=== PATIENT | male | born 1990 | race Caucasian/White ===

== ENCOUNTER → 2020-06-30 10:08 | Outpatient (BNVA) | payer OTHER, SELFPAY | PROVIDERS: PCP Internal Medicine; Visit Provider Urology ==

== ENCOUNTER → 2020-12-31 15:03 | Outpatient (BNVA) | payer OTHER, SELFPAY | PROVIDERS: PCP Internal Medicine; Visit Provider Urology ==

== ENCOUNTER → 2021-07-05 14:35 | Outpatient (BNVA) | payer OTHER, SELFPAY | PROVIDERS: PCP Internal Medicine; Visit Provider Urology | DX: N41.1 Chronic prostatitis (principal); N20.0 Calculus of kidney; R10.31 Right lower quadrant pain; R10.32 Left lower quadrant pain | CPT/HCPCS: 99212 ==

== ENCOUNTER 2022-11-09 08:42 | Outpatient (AMB) | payer OTHER, SELFPAY ==
--- NOTE | 2022-11-09 08:45 | A.OFFVIS_ITS ---
Intake Intake Visit Reasons: 1 year follow up Intake Note: Patient is present for follow up chronic prostatitis Urology Medications: tamsulosin Blood Thinner: none Licensed Physical Therapy Assistant Required: No Accompanied by: Self / Same As Patient Allergies No Known Allergies Allergy (Verified 11/09/22 08:51) HPI HPI Comments History of Present Illness Details Calvin is a pleasant male. He is a patient of Dr. Haney. 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 Review of Systems Const Denies chills and Denies fever(s) Card Reports no additional complaints and Denies syncope Resp Denies cough GI Denies abdominal pain and Denies heartburn Reports as per HPI and Denies change in libido Neuro Denies syncope Psych Denies change in libido Endo Denies change in libido Physical Exam Const General: cooperative, healthy appearing, comfortable and no acute distress Orientation/consciousness: patient oriented x3 HEENT Face and sinus: Yes normal facial exam Mouth: moist mucous membranes Neck Neck: Yes normal visual inspection, Yes full ROM and Yes trachea midline Chest Chest palpation & inspection: normal inspection of the chest Resp Effort & Inspection: normal respiratory effort, able to speak in complete sentences and no respiratory distress GI Inspection: Yes normal to inspection Back/Spine/Pelvis Cervical Spine: normal cervical lordosis Thoracic/Lumbar Spine: thoracic and lumbar spine normal to inspection Skin General skin exam: no rashes or lesions noted Neuro General: patient oriented x3, gait normal, tone normal and moves all extremities Extrem General: Yes normal to inspection and Yes capillary refill normal Assessment & Plan Assessment & Plan (1) Chronic prostatitis: Code(s): N41.1 - Chronic prostatitis Plan Trial tadalafil Patient Instructions: Imaging studies, laboratory and physical exam results were discussed and reviewed in detail. No major barriers to patient understanding were identified. An opportunity to ask questions regarding the treatment plan was provided. All questions were answered. The patient expressed understanding and agreement with the above treatment plan. The patient is aware they should contact our office by phone for worsening of their current condition or the appearance of new urologic symptoms. Compliance is encouraged with any medications and followup testing that is ordered. It is a privilege to participate in the urologic care of your patient. If you have any questions or concerns regarding treatment for the above conditions, or other urologic issues, please do not hesitate to contact me. The office telephone contact is [phone]. This note is constructed using voice recognition software. While every effort chand s been made to ensure accuracy gas welding machine operator errors may have been included. Yours sincerely, Dr Pradip Soto MD, [facility] - Urology Providers of Expert, Compassionate Care for the Genitourinary System Coding Level of Care Code Est Pt Level 4 (86756) Diagnoses Chronic prostatitis N41.1
== END 2022-11-09 09:20 | disposition home or self-care (01) ==
PROVIDERS: Visit Provider Urology
DX: N41.1 Chronic prostatitis (principal)
CPT/HCPCS: 99213

== ENCOUNTER → 2022-11-09 08:42 | Outpatient (BNVA) | payer OTHER, SELFPAY | PROVIDERS: Visit Provider Urology | DX: N41.1 Chronic prostatitis (principal) | CPT/HCPCS: 99212 ==

== ENCOUNTER 2023-01-25 09:12 | Outpatient (AMB) | payer OTHER, SELFPAY ==
--- NOTE | 2023-01-25 09:13 | MHC.PC.OV ---
Vital Signs 01/25/23 09:16 Height 6 ft Weight 180 lb 2 oz BMI 24.4 BP 116/74 Blood Pressure Location Rt brachial Position Sitting Respiration 12 Pulse 60 Pulse Source Pulse Oximeter Temp 97.4 F Temp Source Temporal Artery Scan Pulse Oximetry (%) 99 Oxygen Delivery Method Room Air Intake Visit Reasons: New patient-requesting physical Intake Note: Patient states that he has been having eye strain in right eye. Patient states that when he looks up and left and down to the right it hurts his eye socket and he can also feel it in back of his head as well. Patient states that it just started last sunday. Patient states that he has shoulder and hip issues due to baseball. Patient states that his hip has been hurting for past 5 years and would like a referral for someone to check his hip and see what the damage is. Therapeutic Consultant Required: No Accompanied by: Self / Same As Patient Allergies No Known Allergies Allergy (Verified 01/25/23 09:41) Medication List - Last Reconciled 01/25/23 by Dre Macias CNP meloxicam 15 mg PO DAILY 30 days Tobacco use date assessed: 01/25/23 Dental Screening Dental Screen Date: 01/25/23 Did you have a dental visit in the last 12 months?: Yes Did you have a dental problem in the last 6 months where you did not have access to dental care?: No Was dental information given to patient?: Patient has dentist HPI HPI Comments History of Present Illness Details 32-year-old male presents to establish care He notes that he was last evaluated by his former PCP, [facility], a year ago. He does not recall the last time he had routine blood work done He has PMH significant for chronic prostatitis. He is followed by Dr. Soto, urologist. He his currently on meloxicam. He reports straining of the right eye for the past 1 week. He notes associated constant pain with up and down right eye movements. He denies injury or trauma. He also reports chronic, persistent right hip pain which he attributes to playing baseball. He states that he has been experiencing hip pain for the past 5 years. He notes that he plays baseball every Sunday. He states that he has never had imaging of the hip. 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 1. Little interest or pleasure in doing things: not at all 2. Feeling down, depressed, or hopeless: not at all 3. Trouble falling or staying asleep, or sleeping too much: more than half the days (staying asleep) 4. Feeling tired or having little energy: several days 5. Poor appetite or overeating: not at all 6. Feeling bad about yourself - or that you are a failure or have let yourself or your family down: not at all 7. Trouble concentrating on things, such as reading the newspaper or watching television: not at all 8. Moving or speaking so slowly that other people could have noticed. Or the opposite - being so fidgety or restless that you have been moving around a lot more than usual: not at all 9. Thoughts that you would be better off or of hurting yourself in some way: not at all Total score: 3 Depression Screening Interpretation: Negative Depression Screening Done: Yes Source: Developed by Drs. Tod Berman, Keysha Yoder, Cj Miller and colleagues, with an educational blake from [employer]. Thrive Questionnaire Date Thrive assessed: 01/25/23 I am a: Patient What is your living situation today?: I have a steady place to live Within the past 12 months, did the food you bought not last and you didn't have the money to get more?: Never true Within the past 12 months, did you worry whether your food would run out before you got money to buy more?: Never true Do you have trouble paying for medicines?: No Do you have trouble getting transportation to medical appointments?: No Do you have trouble paying your heating and electricity bill?: No Do you have trouble taking care of your child, family member or friend?: No Do you have trouble with day-to-day activities such as bathing, preparing meals, shopping, managing finances, etc.?: No Are you currently unemployed and looking for a job?: No Are you interested in more education?: Yes Please select the resources that you would like help with: Education Currently or been in a relationship where the following occur: no concerns reported AUDIT C Alcohol Use Questionnaire (AUDIT-C) 1. How often do you have a drink containing alcohol?: Monthly or less 2. How many drinks containing alcohol do you have on a typical day when you are drinking?: 1 or 2 3. How often do you have six or more drinks on one occasion?: Never Total Score: 1 SITA-7 AMB Questionnaire SITA-7 Date SITA - 7 assessed: 01/25/23 Feeling nervous, anxious, or on edge: 0 = Not at all Not being able to stop or control worryin = Several days Worrying too much about different things: 1 = Several days Trouble relaxin = Several days Being so restless that it is hard to sit still: 0 = Not at all Becoming easily annoyed or irritable: 1 = Several days Feeling afraid as if something awful might happen: 0 = Not at all Total SITA-7 score (0-4 normal; 5-9 mild; 10-14 moderate; 15-21 severe): 4 Source: Developed by Drs. Tod Berman, Keysha Yoder, Cj Miller and colleagues, with an educational blake from [employer]. Review of Systems Const Details: Const Denies chills, Denies fatigue, Denies fever(s), Denies headache(s) and Denies weakness ENT Denies dizziness and Denies headache(s) Card Denies chest pain, Denies lightheadedness, Denies dyspnea and Denies other (Palpitations) Resp Denies cough, Denies dyspnea, Denies wheezing and Denies other ( shortness of breath) GI Denies abdominal pain, Denies melena, Denies hematochezia, Denies change in bowel habits, Denies dyspepsia and Denies nausea Denies hematuria and Denies dysuria Musc Denies abnormal gait, Denies myalgias, Denies arthralgias, Denies numbness and Denies tingling Skin/Breast Denies rash, Denies unusual bruising and Denies wounds Neuro Denies abnormal gait, Denies dizziness, Denies headache(s), Denies memory loss, Denies numbness, Denies Sensory deficit (Neuro), Denies tingling and Denies weakness Psych Denies anxiety, Denies depression, Denies memory loss Endo Denies cold intolerance, Denies fatigue, Denies heat intolerance, Denies polydipsia and Denies polyuria Aller/Immun Denies wheezing Physical exam (Primary Care) Vital Signs: Last Vital Signs Temp 97.4 F 01/25/23 09:16 Pulse 60 01/25/23 09:16 Resp 12 01/25/23 09:16 BP 116/74 01/25/23 09:16 Pulse Ox 99 01/25/23 09:16 Oxygen Delivery Method Room Air 01/25/23 09:16 BMI result Body Mass Index 24.4 Tobacco/Smoking Status: Tobacco use Status Tobacco use date assessed 01/25/23 01/25/23 09:29 Patient Tobacco Use Status Never used Tobacco 01/25/23 09:29 e-Cigarette/Vaping Use Never Used 01/25/23 09:29 PHQ-9: PHQ-9 Score PHQ-9: Total score 3 01/25/23 09:45 Depression Screening Interpretation: Negative Thrive Assessment: Date of Thrive Assessment Date Thrive assessed 01/25/23 01/25/23 09:29 Currently or been in a relationship where the following occur: no concerns reported Const Other: General: no acute distress and well developed Nutritional Appearance: well nourished Orientation/consciousness: patient oriented x3 HENMT Head is normocephalic Impacted cerumen to bilateral ear canal occluding the TMs Nasal turbinates and oropharynx are pink and moist Sinuses are nontender with palpation No auricular or cervical lymphadenopathy Eyes General: appearance normal, both eyes and all related structures Pupils: Equal, round and reactive pupils present EOM: EOMs intact bilaterally Resp Effort & Inspection: normal respiratory effort Auscultation: clear to auscultation bilaterally Cardio Rate: regular rate Rhythm: regular rhythm Heart sounds: S1 normal heart sound present, S2 normal heart sound present, no gallops, no murmurs and no rubs GI Palpation (GI): No Abdominal aortic bruit present, Soft to palpation, nontender, No hepatosplenomegaly present and No Rebound tenderness present Auscultation: normal bowel sounds General: Yes no CVA tenderness Back/Spine/Pelvis Back: no CVA tenderness Cervical Spine: cervical ROM normal and No Cervical spine tenderness Thoracic/Lumbar Spine: thoraco-lumbar ROM normal, No pain with thoraco-lumbar ROM, No thoracic spinal tenderness and No lumbar spinal tenderness Extrem General: Yes normal to inspection, No edema and No calf tenderness Negative straight leg raise bilaterally Skin General: warm and dry. Normal skin color. Normal skin turgor Lesions: no lesions Rashes: no rashes Trauma: no lacerations or abrasions Wounds: no wounds Nails: normal Neuro General: patient oriented x3, gait normal and no focal neuro deficit Cranial nerves: Yes Equal, round and reactive pupils present Cognition (Neuro): normal cognition Gait exam (Neuro): Normal gait present Sensory Exam: No Sensory deficit (Neuro) Psych Appearance: grossly normal Affect: normal affect Attitude: cooperative Thought process: Normal thought process present Assessment and Plan Assessment & Plan (1) Right eye strain: Code(s): H53.10 - Unspecified subjective visual disturbances Plan: He reports straining of the right eye for the past 1 week. He notes associated constant pain with up and down right eye movements. No injury or trauma. Normal eye exam Referred to Ophthalmology Follow-up with worsening or new symptoms Advised to get fasting blood work done and follow-up in 1 month for a complete physical exam and labs review Verbalized understanding and agreed with treatment plan. (2) Chronic right hip pain: Code(s): M25.551 - Pain in right hip; G89.29 - Other chronic pain Plan: He also reports chronic, persistent right hip pain which he attributes to playing baseball. He states that he has been experiencing hip pain for the past 5 years. He notes that he plays baseball every Sunday. He states that he has never had imaging of the hip. Likely hip strain or arthritis Negative straight leg raise Continue to take naproxen as prescribed Warm/cold compresses encouraged X-ray ordered. Will review results and make changes to his care plan if warranted. May referred to physical therapy Follow-up with worsening or new symptoms Verbalized understanding and agreed with treatment plan. (3) Impacted cerumen of both ears: Code(s): H61.23 - Impacted cerumen, bilateral Plan: Impacted cerumen of both ears occluding the TMs No ear pain or hearing impairment Advised to return for cerumen removal with pain or hearing impairment Verbalized understanding and agreed with treatment plan. (4) Laboratory tests ordered as part of a complete physical exam (CPE): Code(s): Z00.00 - Encounter for general adult medical examination without abnormal findings Plan: Fasting labs ordered as part of a complete physical exam. Advised to fast for at least 10 hours before getting labs drawn. May drink water Verbalized understanding and agreed with treatment plan. Orders: Orders Lipid Panel Today Z00.00 - Encounter for general adult medical examination without abnormal findings XR hip RT w PEL1V Today G89.29 - Other chronic pain, M25.551 - Pain in right hip Complete Blood Count Auto Diff Today Z00.00 - Encounter for general adult medical examination without abnormal findings Comprehensive [place]. Panel Fast Today Z00.00 - Encounter for general adult medical examination without abnormal findings TSH reflex Free T4 Today Z00.00 - Encounter for general adult medical examination without abnormal findings UA CC w/rflx Micro + Cult Today Z00.00 - Encounter for general adult medical examination without abnormal findings Referrals Ophthalmology Referral H53.10 - Unspecified subjective visual disturbances Coding Level of Care Code New Pt Level 3 (68668) Diagnoses Right eye strain H53.10 Chronic right hip pain M25.551; G89.29 Impacted cerumen of both ears H61.23 Laboratory tests ordered as part of a complete physical exam (CPE) Z00.00
[2023-01-25 09:16] VITALS: BP 116/74; PULSE 60; RESP 12; TEMP 36.3; O2SAT 99; BMI 24.4
== END 2023-01-25 10:08 | disposition home or self-care (01) ==
PROVIDERS: PCP Nurse Practitioner Family; Visit Provider Nurse Practitioner Family
DX: H53.10 Unspecified subjective visual disturbances (principal); M25.551 Pain in right hip; G89.29 Other chronic pain; H61.23 Impacted cerumen, bilateral; Z00.00 Encounter for general adult medical examination without abnormal findings
CPT/HCPCS: 99204

== ENCOUNTER 2023-05-08 08:33 | Outpatient (AMB) | payer OTHER, SELFPAY ==
--- NOTE | 2023-05-08 08:36 | MHC.OFFVIS ---
Intake Intake Visit Reasons: 6m follow up(Prostatitis) Intake Note: Patient is Present for Telephone Follow Up Prostatitis Urology Med: None Antibiotic Allergy: None Blood Thinner: None Allergies No Known Allergies Allergy (Verified 05/08/23 08:40) Medication List - Last Reconciled 05/08/23 by Pradip Soto MD meloxicam 15 mg PO DAILY 30 days HPI HPI Comments History of Present Illness Details Calvin is a pleasant male. He is a patient of Dr. Haney. 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 [facility] Medical History (Updated 01/25/23 @ 10:05 by Dre Macias CNP) Abscess of anal or rectal region Surgical History No pertinent past surgical history Social History Housing: House Patient Tobacco Use Status: Never used Tobacco e-Cigarette/Vaping Use: Never Used service: No Current occupational status: employed 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 Cognitive needs: No Hearing needs: No Vision needs: No Review of Systems Const All systems reviewed & are unremarkable except as noted in HPI and below Reports no additional complaints Resp Reports no additional complaints GI Reports no additional complaints Reports as per HPI Musc Reports no additional complaints Physical Exam Telemedicine evaluation Appropriate responses Regular breathing rate and rhythm HEENT Head: Yes normal to inspection Ears: hearing grossly normal bilaterally Eyes General: appearance normal, both eyes and all related structures Neck Neck: Yes normal visual inspection Chest Chest palpation & inspection: normal inspection of the chest Resp Effort & Inspection: normal respiratory effort and able to speak in complete sentences Assessment & Plan Assessment & Plan (1) Chronic prostatitis: Code(s): N41.1 - Chronic prostatitis Plan Six-month follow-up tele Medications: New tadalafil 1/2 tab daily or 1 tab every other day 10 mg PO DAILY 90 days 90 tabs 0RF N41.1 - Chronic prostatitis Patient Instructions: Imaging studies, laboratory and physical exam results were discussed and reviewed in detail. No major barriers to patient understanding were identified. An opportunity to ask questions regarding the treatment plan was provided. All questions were answered. The patient expressed understanding and agreement with the above treatment plan. The patient is aware they should contact our office by phone for worsening of their current condition or the appearance of new urologic symptoms. Compliance is encouraged with any medications and followup testing that is ordered. It is a privilege to participate in the urologic care of your patient. If you have any questions or concerns regarding treatment for the above conditions, or other urologic issues, please do not hesitate to contact me. The office telephone contact is [phone]. This note is constructed using voice recognition software. While every effort has been made to ensure accuracy health insurance adjuster errors may have been included. Yours sincerely, Dr Pradip Soto MD, [facility] - Urology Providers of Expert, Compassionate Care for the Genitourinary System Telehealth Telehealth Location of provider rendering services: practice address Location of patient: address on file Patient Identification confirmed using: Name, : Yes Telehealth method: video Patient verbally consented to treatment: Yes Patient verbally consented to billing insurance company: Yes Patient informed of any privacy concerns related to visit: Yes Coding Level of Care Code Tele Est Pt Level 3 (47001) Diagnoses Chronic prostatitis N41.1
== END 2023-05-08 09:03 | disposition home or self-care (01) ==
LOC: HO.HUSH 08:34
PROVIDERS: PCP Nurse Practitioner Family; Visit Provider Urology
DX: N41.1 Chronic prostatitis (principal)
CPT/HCPCS: 99213

== ENCOUNTER → 2023-05-08 08:33 | Outpatient (BNVA) | payer OTHER, SELFPAY | PROVIDERS: PCP Nurse Practitioner Family; Visit Provider Urology ==

== ENCOUNTER 2023-10-04 10:54 | Outpatient (AMB) | payer SELFPAY ==
--- NOTE | 2023-10-04 11:14 | A.OFFVIS_ITS ---
Intake Visit Reasons: Microgen Intake Note: Patient is present for Microgen Testing Allergies No Known Allergies Allergy (Verified 05/08/23 08:40) HPI Comments Details: Calvin is a pleasant male. He is a patient of Dr. Haney. 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 [facility] Medical History Abscess of anal or rectal region Surgical History No pertinent past surgical history Social History Housing: House Patient Tobacco Use Status: Never used Tobacco e-Cigarette/Vaping Use: Never Used service: No Current occupational status: employed Current occupation: [employer] Cognitive needs: No Hearing needs: No Vision needs: No Review of Systems Const Denies chills and Denies fever(s) Card Reports no additional complaints and Denies syncope Resp Denies cough GI Denies abdominal pain and Denies heartburn Reports as per HPI and Denies change in libido Neuro Denies syncope Psych Denies change in libido Endo Denies change in libido Physical Exam Const General: cooperative, healthy appearing, comfortable and no acute distress Orientation/consciousness: patient oriented x3 HEENT Face and sinus: Yes normal facial exam Mouth: moist mucous membranes Neck Neck: Yes normal visual inspection, Yes full ROM and Yes trachea midline Chest Chest palpation & inspection: normal inspection of the chest Resp Effort & Inspection: normal respiratory effort, able to speak in complete sentences and no respiratory distress GI Inspection: Yes normal to inspection Rectal Exam - Male: Yes normal sphincter tone and Yes prostate normal Male General Exam: Yes normal external exam Penis: normal penis and circumcised Meatus: meatus normal Scrotum: scrotum normal Testes: Testes normal Back/Spine/Pelvis Cervical Spine: normal cervical lordosis Thoracic/Lumbar Spine: thoracic and lumbar spine normal to inspection Skin General skin exam: no rashes or lesions noted Neuro General: patient oriented x3, gait normal, tone normal and moves all extremities Extrem General: Yes normal to inspection and Yes capillary refill normal Assessment & Plan Assessment & Plan (1) Chronic prostatitis: Code(s): N41.1 - Chronic prostatitis Category: Medical Plan Microgen performed today Patient Instructions: Imaging studies, laboratory and physical exam results were discussed and reviewed in detail. No major barriers to patient understanding were identified. An opportunity to ask questions regarding the treatment plan was provided. All questions were answered. The patient expressed understanding and agreement with the above treatment plan. The patient is aware they should contact our office by phone for worsening of their current condition or the appearance of new urologic symptoms. Compliance is encouraged with any medications and followup testing that is ordered. It is a privilege to participate in the urologic care of your patient. If you have any questions or concerns regarding treatment for the above conditions, or other urologic issues, please do not hesitate to contact me. The office telephone contact is [phone]. This note is constructed using voice recognition software. While every effort has been made to ensure accuracy community arts officer errors may have been included. Yours sincerely, Dr Pradip Soto MD, [facility] - Urology Providers of Expert, Compassionate Care for the Genitourinary System Coding Level of Care Code Est Pt Level 3 (09648) Diagnoses Chronic prostatitis N41.1
== END 2023-10-04 11:38 | disposition home or self-care (01) ==
PROVIDERS: PCP Nurse Practitioner Family; Visit Provider Urology
DX: N41.1 Chronic prostatitis (principal)
CPT/HCPCS: 99213

== ENCOUNTER → 2023-10-04 10:54 | Outpatient (BNVA) | payer MEDICAID, SELFPAY | PROVIDERS: PCP Nurse Practitioner Family; Visit Provider Urology | DX: N41.1 Chronic prostatitis (principal) | CPT/HCPCS: 99212 ==

== ENCOUNTER 2023-11-08 08:46 | Outpatient (AMB) | payer SELFPAY ==
--- NOTE | 2023-11-08 08:50 | A.OFFVIS_ITS ---
Intake Visit Reasons: 6m follow up(Microgen Done last visit) Intake Note: Patient is Present for a 6m Follow Up Urology Med:clindamycin,doxycyline,fluconazole,meloxicam,prednisone,sulfa(BACTRIMDS),TAD ALAFIL Antibiotic Allergy: None Blood Thinner: None Senior Data Modeler Required: No Allergies No Known Allergies Allergy (Verified 11/08/23 08:53) Medication List - Last Reconciled 11/08/23 by Pradip Soto MD clindamycin HCl 600 mg (2 x 300 mg) PO TID 14 days doxycycline hyclate 100 mg PO BID 14 days fluconazole 150 mg PO Q3D 1 dose meloxicam 15 mg PO DAILY 30 days prednisone 20 mg PO DAILY 3 days sulfamethoxazole-trimethoprim 800-160 mg (Bactrim DS) 1 tab PO BID 14 days tadalafil 10 mg PO DAILY 90 days HPI Comments Details: Calvin is a pleasant male. He is a patient of Dr. Hnaey. He is seen for the following urologic conditions - discomfort and pain with erection - chronic prostatitis Microgen result 10/14 low load Staphylococcus +fungus. Treated with clindamycin plus fluconazole Had 75% improvement Will re-treat to try and resolve symptoms P.r.n. 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 Cognitive needs: No Hearing needs: No Vision needs: No Review of Systems Const Denies chills and Denies fever(s) Card Reports no additional complaints and Denies syncope Resp Denies cough GI Denies abdominal pain and Denies heartburn Reports as per HPI and Denies change in libido Neuro Denies syncope Psych Denies change in libido Endo Denies change in libido Physical Exam Const General: cooperative, healthy appearing, comfortable and no acute distress Orientation/consciousness: patient oriented x3 HEENT Face and sinus: Yes normal facial exam Mouth: moist mucous membranes Neck Neck: Yes normal visual inspection, Yes full ROM and Yes trachea midline Chest Chest palpation & inspection: normal inspection of the chest Resp Effort & Inspection: normal respiratory effort, able to speak in complete sentences and no respiratory distress GI Inspection: Yes normal to inspection Back/Spine/Pelvis Cervical Spine: normal cervical lordosis Thoracic/Lumbar Spine: thoracic and lumbar spine normal to inspection Skin General skin exam: no rashes or lesions noted Neuro General: patient oriented x3, gait normal, tone normal and moves all extremities Extrem General: Yes normal to inspection and Yes capillary refill normal Assessment & Plan Assessment & Plan (1) Chronic prostatitis: Code(s): N41.1 - Chronic prostatitis Category: Medical Plan P.r.n. follow-up Medications: Refilled fluconazole additional one dose to previous 3 dose script sent 150 mg PO Q3D 1 tab 0RF clindamycin HCl 600 mg (2 x 300 mg) PO TID 14 days 84 caps 0RF Patient Instructions: Imaging studies, laboratory and physical exam results were discussed and reviewed in detail. No major barriers to patient understanding were identified. An opportunity to ask questions regarding the treatment plan was provided. All questions were answered. The patient expressed understanding and agreement with the above treatment plan. The patient is aware they should contact our office by phone for worsening of their current condition or the appearance of new urologic symptoms. Compliance is encouraged with any medications and followup testing that is ordered. It is a privilege to participate in the urologic care of your patient. If you have any questions or concerns regarding treatment for the above conditions, or other urologic issues, please do not hesitate to contact me. The office telephone contact is [phone]. This note is constructed using voice recognition software. While every effort has been made to ensure accuracy promotions executive producer errors may have been included. Yours sincerely, Dr Pradip Soto MD, [facility] - Urology Providers of Expert, Compassionate Care for the Genitourinary System Coding Level of Care Code Est Pt Level 3 (60525) Diagnoses Chronic prostatitis N41.1
== END 2023-11-08 09:16 | disposition home or self-care (01) ==
PROVIDERS: PCP Nurse Practitioner Family; Visit Provider Urology
DX: Z13.9 Encounter for screening, unspecified (principal); N41.1 Chronic prostatitis
CPT/HCPCS: 99213

== ENCOUNTER → 2023-11-08 08:46 | Outpatient (BNVA) | payer SELFPAY | PROVIDERS: PCP Nurse Practitioner Family; Visit Provider Urology | DX: N41.1 Chronic prostatitis (principal) | CPT/HCPCS: 81003; 99212 ==

== ENCOUNTER → 2023-11-30 10:19 | Outpatient (BNVA) | payer SELFPAY | PROVIDERS: PCP Nurse Practitioner Family; Visit Provider Urology ==

== ENCOUNTER 2024-03-04 08:20 | Outpatient (AMB) | payer OTHER, SELFPAY ==
--- NOTE | 2024-03-04 08:22 | MHC.OFFVIS ---
Intake Visit Reasons: Discuss Bladder Treatments Intake Note: Patient Is Present for Telephone Discussion on treatment for Bladder Pain Urology Med: No longer on Tadalafil, Previously prescribed Prednisone for 5 days Antibiotic Allergy: None Blood Thinner: None Was recently prescribed Prednisone for 5 days Patient states that his symptoms improved with Prednisone. Reports that he is no longer taking Tadalafil, Patient states he spoke with Dr Soto previously explaining that it makes his back hurt. Recent Microgen: 11/2023 Contracts Manager Required: No Accompanied by: Self / Same As Patient Allergies No Known Allergies Allergy (Verified 03/04/24 08:22) HPI Comments Details: Calvin is a pleasant male. He is a patient of Dr. Haney. He is seen for the following urologic conditions - discomfort and pain with erection - chronic prostatitis Telemedicine Evaluation 15 min Consultation [employer] [employer] Microgen 12/14 - Klebsiella + Routella - sensitive to Levaquin Trial retreatment with 30 days Microgen result 10/14 low load Staphylococcus +fungus. Treated with clindamycin plus fluconazole Had 75% improvement Will re-treat to try and resolve symptoms P.r.n. 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 Cognitive needs: No Hearing needs: No Vision needs: No Review of Systems Const All systems reviewed & are unremarkable except as noted in HPI and below Reports no additional complaints Resp Reports no additional complaints GI Reports no additional complaints Reports as per HPI Musc Reports no additional complaints Physical Exam Telemedicine evaluation Appropriate responses Regular breathing rate and rhythm HEENT Head: Yes normal to inspection Ears: hearing grossly normal bilaterally Eyes General: appearance normal, both eyes and all related structures Neck Neck: Yes normal visual inspection Chest Chest palpation & inspection: normal inspection of the chest Resp Effort & Inspection: normal respiratory effort and able to speak in complete sentences Telehealth Telehealth Telehealth [facility]: [facility] Location of provider rendering services: practice address Location of patient: address on file Patient Identification confirmed using: Name, : Yes Telehealth method: video Patient verbally consented to treatment: Yes Patient verbally consented to billing insurance company: Yes Patient informed of any privacy concerns related to visit: Yes Minutes spent on Phone/Video with Pt.: 15 Assessment & Plan Assessment & Plan (1) Chronic prostatitis: Code(s): N41.1 - Chronic prostatitis Category: Medical Plan 6 week f/u Medications: Changed From levofloxacin 500 mg PO DAILY 10 days 10 tabs 0RF N41.1 - Chronic prostatitis To levofloxacin 500 mg PO DAILY 30 tabs 0RF 30 days N41.1 - Chronic prostatitis Patient Instructions: Imaging studies, laboratory and physical exam results were discussed and reviewed in detail. No major barriers to patient understanding were identified. An opportunity to ask questions regarding the treatment plan was provided. All questions were answered. The patient expressed understanding and agreement with the above treatment plan. The patient is aware they should contact our office by phone for worsening of their current condition or the appearance of new urologic symptoms. Compliance is encouraged with any medications and followup testing that is ordered. It is a privilege to participate in the urologic care of your patient. If you have any questions or concerns regarding treatment for the above conditions, or other urologic issues, please do not hesitate to contact me. The office telephone contact is [phone]. This note is constructed using voice recognition software. While every effort has been made to ensure accuracy customer field representative errors may have been included. Yours sincerely, Dr Pradip Soto MD, [facility] - Urology Providers of Expert, Compassionate Care for the Genitourinary System Coding Level of Care Code Tele Est Pt Level 4 (64264) Diagnoses Chronic prostatitis N41.1
== END 2024-03-04 10:14 | disposition home or self-care (01) ==
LOC: HO.HUSH 08:20
PROVIDERS: PCP Nurse Practitioner Family; Visit Provider Urology
DX: N41.1 Chronic prostatitis (principal)
CPT/HCPCS: 99214

== ENCOUNTER → 2024-03-04 08:20 | Outpatient (BNVA) | payer OTHER, SELFPAY | PROVIDERS: PCP Nurse Practitioner Family; Visit Provider Urology ==

== ENCOUNTER 2024-04-15 08:44 | Outpatient (AMB) | payer OTHER, SELFPAY ==
--- NOTE | 2024-04-15 08:44 | MHC.OFFVIS ---
Intake Visit Reasons: 6W Med Review/Prostatitis(levofloxacin) Intake Note: Patient is present for 6W MED REVIEW/PROSTATITIS Urology Medication:NONE Antibiotic Allergy:NONE Blood Thinner:NONE Starter Cup Powder Mixer Required: No Allergies No Known Allergies Allergy (Verified 04/15/24 08:45) HPI Comments Details: Calvin is a pleasant male. He is a patient of Dr. Haney. He is seen for the following urologic conditions - discomfort and pain with erection - chronic prostatitis Telemedicine Evaluation 15 min Consultation [employer] States he did have improvement with treatment at 500 of Levaquin. Slowly has improved. We discussed going on low-dose Levaquin for the next 3 months. He would like to do this. Prescription provided. Review in 4 months Microgen 12/14 - Klebsiella + Routella - sensitive to Levaquin Trial retreatment with 30 days Microgen result 10/14 low load Staphylococcus +fungus. Treated with clindamycin plus fluconazole Had 75% improvement Will re-treat to try and resolve symptoms P.r.n. 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 Cognitive needs: No Hearing needs: No Vision needs: No Review of Systems Const All systems reviewed & are unremarkable except as noted in HPI and below Reports no additional complaints Resp Reports no additional complaints GI Reports no additional complaints Reports as per HPI Musc Reports no additional complaints Physical Exam Telemedicine evaluation Appropriate responses Regular breathing rate and rhythm HEENT Head: Yes normal to inspection Ears: hearing grossly normal bilaterally Eyes General: appearance normal, both eyes and all related structures Neck Neck: Yes normal visual inspection Chest Chest palpation & inspection: normal inspection of the chest Resp Effort & Inspection: normal respiratory effort and able to speak in complete sentences Telehealth Telehealth Location of provider rendering services: practice address Location of patient: address on file Patient Identification confirmed using: Name, : Yes Telehealth method: voice only Patient verbally consented to treatment: Yes Patient verbally consented to billing insurance company: Yes Patient informed of any privacy concerns related to visit: Yes Assessment & Plan Assessment & Plan (1) Chronic prostatitis: Code(s): N41.1 - Chronic prostatitis Category: Medical Plan Four month follow-up Medications: Changed From levofloxacin 250 mg PO DAILY 60 days 60 tabs 0RF To levofloxacin 250 mg PO DAILY 90 days 90 tabs 0RF Patient Instructions: Imaging studies, laboratory and physical exam results were discussed and reviewed in detail. No major barriers to patient understanding were identified. An opportunity to ask questions regarding the treatment plan was provided. All questions were answered. The patient expressed understanding and agreement with the above treatment plan. The patient is aware they should contact our office by phone for worsening of their current condition or the appearance of new urologic symptoms. Compliance is encouraged with any medications and followup testing that is ordered. It is a privilege to participate in the urologic care of your patient. If you have any questions or concerns regarding treatment for the above conditions, or other urologic issues, please do not hesitate to contact me. The office telephone contact is [phone]. This note is constructed using voice recognition software. While every effort has been made to ensure accuracy dampener errors may have been included. Yours sincerely, Dr Pradip Soto MD, [facility] - Urology Providers of Expert, Compassionate Care for the Genitourinary System Coding Level of Care Code Tele Est Pt Level 3 (86504) Diagnoses Chronic prostatitis N41.1
--- OUTSIDE RECORDS SUMMARY | 2024-04-15 08:48 | XMS_ITS | Data Portability ---
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 An independent historian was used to obtain history N. My care of this patient involved: moderate Assessment of problems. moderate Review of data low Complexity of risk from disease or treatments Below is my assessment and plan for this patient? s care today. [email or web address] Not available 05/31/2021 11:07:39 Plan of Treatment Reminders Order Date Submit Date Provider Last Modified By Organization Details Last Modified Time Details Appointments None recorded. Lab urinalysis, dipstick 2021 022 [email or web address] [facility], [address] [place] [address], [id number], 2 10:46:37 culture, urine 2021 022 [facility], [address] [place], [address], 2 01:21:34 urinalysis, dipstick 2021 022 [email or web address] [facility], [address] [place], [address], 2 16:08:44 hepatitis C virus Ab, serum 2021 022 [facility], [address] [facility], [place], [address], 18:35:53 Referral None recorded. Procedures None recorded. Surgeries None recorded. Imaging None recorded. Medication Orders levofloxaci n 500 mg tablet 2021 [email or web address] [facility][id number], [address], [place], [id number], 16:00:22 sulfamethox azole 800 mg-trimetho prim 160 mg tablet 2021 [facility] #[id number], [address], [place], [id number], 18:15:17 Patient TargetsNo targets recorded. Patient Instructions Encounter Date Encounter Id Patient Instructions Last Modified By Organization Details Last Modified Time 04/12/2021 [id number] violet ascencio se education Not available 04/12/2021 08:25:52 epididymitis and orchitis: care instructions Not available 04/12/2021 08:25:52 05/31/2021 [id number] [place] in [place] as scheduled [email or web address] Not available 05/31/2021 11:07:43 06/11/2021 [id number] After a discussi on of treatment options, which included consideration of best practices, patient preferences, and the patient? s individual lifestyle and treatment goals, as well as consideration and attempted mitigation of any barriers to meeting the patient? s goals, the following treatment plan and objectives were adopted: -Good to see you today! -Take your medications as prescribed, and please let us know if you have any unwanted or unexpected side effects. -Please review the patient education provided to you today. -Keep your follow-up appointments as scheduled. -Please let us know if you are worse in any way, we are supervisor home economics 24 hours a day, 7 days a week by phone: [phone]. -Please let us know if you have any further questions or concerns. You have been prescribed an antibiotic which can help to cure a bacterial infection ? they do not help with viral infections. Sometimes, you will get better despite the antibiotic, not because of it. ALWAYS take all of an antibiotic, as prescribed, unless instructed not to by your healthcare provider. When taking antibiotics, your body? s natural bacteria may be disturbed. This can cause diarrhea, gas or cramping. In women, it can cause a yeast infection. To prevent this, it is helpful to take a probiotic supplement, such as Culturelle or yogurt with live and active cultures. As with any medication, call if you develop a rash or fever. [email or web address] Not available 06/13/2021 14:47:23 09/01/2021 [id number] Well Visit, Ages 18 to 65: Care Instructions [email or web address] Not available 09/01/2021 16:09:31 After a discussi on of treatment options, which included consideration of best practices, patient preferences, and the patient? s individual lifestyle and treatment goals, as well as consideration and attempted mitigation of any barriers to meeting the patient? s goals, the following treatment plan and objectives were adopted: - exercise 30 minutes, 5 days a week - balanced diet with lean protein, whole grains, veggies, fruit - 7-8 hours of sleep a night - 7-8 glasses of water a day - sunscreen in the sun, regular skin/tick checks - brush teeth at least twice a day - regular dental and eye exams - flu vaccine in the fall - wellness visit in 1 year [email or web address] Not available 09/01/2021 23:20:47 Reason for Referral None Reported. Results Created Date Observation Date Name Description Value Unit Range Abnormal Flag Note LastModifiedBy Organization Detail LastModifiedTime 04/11/20 21 04/11/2021 URINA LYSIS W/REF CHEMA URINE CULTU RE color YELLOW yellow Not Available [facility] [address] [place], [address], 04/11/2021 13:58:33 04/11/20 21 04/11/2021 URINA LYSIS W/REF CHEMA URINE CULTU RE clarity CLEAR Not Available [facility] [address] [place], [address], 04/11/2021 13:58:33 04/11/20 21 04/11/2021 URINA LYSIS W/REF CHEMA URINE CULTU RE glucose NEGATI VE negati ve Not Available [facility] [address] [place], [address], 04/11/2021 13:58:33 04/11/20 21 04/11/2021 URINA LYSIS W/REF CHEMA URINE CULTU RE bili NEGATI VE negati ve Not Available [facility] [address] [place], [address], 04/11/2021 13:58:33 04/11/20 21 04/11/2021 URINA LYSIS W/REF CHEMA URINE CULTU RE ketones NEGATI VE negati ve Not Available [facility] [address] [place], [address], 04/11/2021 13:58:33 04/11/20 21 04/11/2021 URINA LYSIS W/REF CHEMA URINE CULTU RE specific gravity 1.025 1.005- 1.030 Not Available [facility] [address] [place], [address], 04/11/2021 13:58:33 04/11/20 21 04/11/2021 URINA LYSIS W/REF CHEMA URINE CULTU RE blood NEGATI VE negati ve Not Available [facility] [address] [place], [address], 04/11/2021 13:58:33 04/11/20 21 04/11/2021 URINA LYSIS W/REF CHEMA URINE CULTU RE pH 6.0 5.0-8. 0 Not Available [facility] [address] [place], [address], 04/11/2021 13:58:33 04/11/20 21 04/11/2021 URINA LYSIS W/REF CHEMA URINE CULTU RE protein NEGATI VE negati ve Not Available [facility] [address] [place], [address], 04/11/2021 13:58:33 04/11/20 21 04/11/2021 URINA LYSIS W/REF CHEMA URINE CULTU RE nitrite NEGATI VE negati ve Not Available [facility] [address] [place], [address], 04/11/2021 13:58:33 04/11/20 21 04/11/2021 URINA LYSIS W/REF CHEMA URINE CULTU RE leukocyte esterase, ur NEGATI VE negati ve Not Available [facility] [address] [place], [address], 04/11/2021 13:58:33 04/11/20 21 04/12/2021 CHLAM YDIA TRACH OMATI S AND NEISS ERIA GONOR RHOEA E NUCLE IC ACID DETEC TION chlamydia trachomatis NOT DETECT ED not detect ed Not Available [facility] [address] [place], [address], 04/12/2021 09:57:05 04/11/20 21 04/12/2021 CHLAM YDIA TRACH OMATI S AND NEISS ERIA GONOR RHOEA E NUCLE IC ACID DETEC TION neiseria gonorrhoeae NOT DETECT ED not detect ed Not Available [facility] [address] [place], [address], 04/12/2021 09:57:05 04/11/20 21 04/12/2021 CHLAM YDIA TRACH OMATI S AND NEISS ERIA GONOR RHOEA E NUCLE IC ACID DETEC TION specimen type URINE Not Available [facility] [address] [place], [address], 04/12/2021 09:57:05 05/13/19 22 05/13/2021 POC UA glu UA NEGATI VE Not Available [facility] [address] [place], [address], 05/13/2021 10:46:32 05/13/19 22 05/13/2021 POC UA clarity UA CLEAR Not Available [facility] [address] [place] [address], [id number], 05/13/2021 10:46:32 05/13/19 22 05/13/2021 POC UA uro UA 0.2000 Not Available [facility] [address] [place] [address], [id number], 05/13/2021 10:46:32 05/13/19 22 05/13/2021 POC UA ket UA NEGATI VE Not Available [facility] [address] [place] [address], [id number], 05/13/2021 10:46:32 05/13/19 22 05/13/2021 POC UA pro UA NEGATI VE Not Available [facility] [address] [place] [address], [id number], 05/13/2021 10:46:32 05/13/19 22 05/13/2021 POC UA nit UA NEGATI VE Not Available [facility] [address] [place] [address], [id number], 05/13/2021 10:46:32 05/13/19 22 05/13/2021 POC UA manjit UA NEGATI VE Not Available [facility] [address] [place] [address], [id number], 05/13/2021 10:46:32 05/13/19 22 05/13/2021 POC UA pH UA 5.5000 Not Available [facility] [address] [place] [address], [id number], 05/13/2021 10:46:32 05/13/19 22 05/13/2021 POC UA SG UA 1.0250 Not Available [facility] [address] [place] [address], [id number], 05/13/2021 10:46:32 05/13/19 22 05/13/2021 POC UA color UA YELLOW Not Available [facility] [address] [place] [address], [address], 05/13/2021 10:46:32 05/13/19 22 05/13/2021 POC UA blo UA NEGATI VE Not Available [facility] [address] [place] [address], [id number], 05/13/2021 10:46:32 05/13/19 22 05/13/2021 POC UA idris UA NEGATI VE Not Available [facility] [address] [place] [address], [id number], 05/13/2021 10:46:32 05/13/19 22 05/15/2021 CULTU RE, URINE , ROUTI NE culture, urine, routine CULTU RE, URINE , ROUTI NE Micro Numbe r: [id number] Test Statu s: Final Speci men Sourc e: Urine Speci men Quali ty: Adequ ate Resul t: No Growt h Not Available [facility] [address], [address], 05/15/2021 01:21:34 06/11/19 22 06/11/2021 POC UA glu UA NEGATI VE Not Available [facility] [address] [place] [address], [id number], 06/11/2021 15:33:53 06/11/19 22 06/11/2021 POC UA clarity UA CLEAR Not Available [facility] [address] [place] [address], [id number], 06/11/2021 15:33:53 06/11/19 22 06/11/2021 POC UA uro UA 0.2000 Not Available [facility] [address] [place] [address], [id number], 06/11/2021 15:33:53 06/11/19 22 06/11/2021 POC UA ket UA NEGATI VE Not Available [facility] [address] [place] [address], [address], 06/11/2021 15:33:53 06/11/19 22 06/11/2021 POC UA pro UA NEGATI VE Not Available [facility] [address] [place] [address], [address], 06/11/2021 15:33:53 06/11/19 22 06/11/2021 POC UA nit UA NEGATI VE Not Available [facility] [address] [place] [address], [address], 06/11/2021 15:33:53 06/11/19 22 06/11/2021 POC UA manjit UA NEGATI VE Not Available [facility] [address] [place] [address], [address], 06/11/2021 15:33:53 06/11/19 22 06/11/2021 POC UA pH UA 6.0000 Not Available [facility] [address] [place] [address], [address], 06/11/2021 15:33:53 06/11/19 22 06/11/2021 POC UA SG UA 1.0250 Not Available [facility] [address] [place] [address], [address], 06/11/2021 15:33:53 06/11/19 22 06/11/2021 POC UA color UA YELLOW Not Available [facility] [address] [place] [address], [address], 06/11/2021 15:33:53 06/11/19 22 06/11/2021 POC UA blo UA NEGATI VE Not Available [facility] [address] [place] [address], [address], 06/11/2021 15:33:53 06/11/19 22 06/11/2021 POC UA idris UA NEGATI VE Not Available [facility] [address] [place] [address], [address], 06/11/2021 15:33:53 09/03/19 22 09/05/2021 HEPAT ITIS C AB W/REF L TO HCV RNA, QN, PCR hepatitis C antibody NON-RE ACTIVE non-re active normal Not Available [facility] [place] [facility] [address], [address], 09/05/2021 18:35:52 09/03/1909/05/2021 HEPAT ITIS C AB W/REF L TO HCV RNA, QN, PCR index 0.01 <1.00 normal HCV antib curtis was non-r eacti ve. There is no labor atory evide nce of HCV infec tion. In most cases , no furth er actio n is requi red. Howev er, if recen t HCV expos ure is suspe cted, a test for HCV RNA (test code 24521 ) is [facility]. For addit ional infor cari duke e refer to http: //[facility] stdia gnost ics.c om/fa q/FAQ 22v1 (This link is being provi ded for infor cari barbosa/ educa nabil l purpo ses only. ) Not Available [facility] [place] [facility] [address], [place], [address], 09/05/2021 18:35:52 02/19/2002/18/2022 CBC AND DIFFE RENTI AL WBC 3.55 K/uL 4.00-1 1.00 low Not Available [facility] [address] [place] [address], [id number], 02/18/2022 10:49:30 02/19/20 22 02/18/2022 CBC AND DIFFE RENTI AL RBC 4.55 M/uL 4.48-5 .88 Not Available [facility] [address] [place], [address], 02/18/2022 10:49:30 02/19/20 22 02/18/2022 CBC AND DIFFE RENTI AL HGB 14.8 g/dL 13.4-1 7.5 Not Available [facility] [address] [place], [address], 02/18/2022 10:49:30 02/19/20 22 02/18/2022 CBC AND DIFFE RENTI AL HCT 41.6 % 38.0-5 1.0 Not Available [facility] [address] [place], [address], 02/18/2022 10:49:30 02/19/20 22 02/18/2022 CBC AND DIFFE RENTI AL plt 184 K/uL 140-43 0 Not Available [facility] [address] [place], [address], 02/18/2022 10:49:30 02/19/20 22 02/18/2022 CBC AND DIFFE RENTI AL MCV 91.4 fL 78.0-9 7.0 Not Available [facility] [address] [place], [address], 02/18/2022 10:49:30 02/19/20 22 02/18/2022 CBC AND DIFFE RENTI AL MCH 32.5 pg 25.0-3 3.0 Not Available [facility] [address] [place], [address], 02/18/2022 10:49:30 02/19/20 22 02/18/2022 CBC AND DIFFE RENTI AL MCHC 35.6 g/dL 32.0-3 6.0 Not Available [facility] [address] [place], [address], 02/18/2022 10:49:30 02/19/20 22 02/18/2022 CBC AND DIFFE RENTI AL RDW 12.1 % 11.0-1 5.0 Not Available [facility] [address] [place], [address], 02/18/2022 10:49:30 02/19/20 22 02/18/2022 CBC AND DIFFE RENTI AL MPV 9.3 fL 8.4-12 .8 Not Available [facility] [address] [place], [address], 02/18/2022 10:49:30 02/19/20 22 02/18/2022 CBC AND DIFFE RENTI AL diff method Auto Not Available [facility] [address] [place], [address], 02/18/2022 10:49:30 02/19/20 22 02/18/2022 CBC AND DIFFE RENTI AL neuts 44.8 % 43.0-7 5.0 Not Available [facility] [address] [place], [address], 02/18/2022 10:49:30 02/19/20 22 02/18/2022 CBC AND DIFFE RENTI AL lymphs 42.5 % 18.2-4 7.4 Not Available [facility] [address] [place], [address], 02/18/2022 10:49:30 02/19/20 22 02/18/2022 CBC AND DIFFE RENTI AL monos 8.5 % 4.00-1 1.00 Not Available [facility] [address] [place], [address], 02/18/2022 10:49:30 02/19/20 22 02/18/2022 CBC AND DIFFE RENTI AL eos 3.1 % 0.0-8. 0 Not Available [facility] [address] [place], [address], 02/18/2022 10:49:30 02/19/20 22 02/18/2022 CBC AND DIFFE RENTI AL basos 0.8 % 0.0-2. 0 Not Available [facility] [address] [place], [address], 02/18/2022 10:49:30 02/19/20 22 02/18/2022 CBC AND DIFFE RENTI AL granulocytes , immature (%) 0.3 % 0.0-0. 9 Not Available [facility] [address] [place], [address], 02/18/2022 10:49:30 02/19/20 22 02/18/2022 CBC AND DIFFE RENTI AL absolute neuts 1.59 K/uL 1.80-7 .70 low Not Available [facility] [address] [place], [address], 02/18/2022 10:49:30 02/19/20 22 02/18/2022 CBC AND DIFFE RENTI AL absolute lymphs 1.51 K/uL 1.00-3 .10 Not Available [facility] [address] [place], [address], 02/18/2022 10:49:30 02/19/20 22 02/18/2022 CBC AND DIFFE RENTI AL absolute monos 0.30 K/uL 0.20-0 .80 Not Available [facility] [address] [place], [address], 02/18/2022 10:49:30 02/19/20 22 02/18/2022 CBC AND DIFFE RENTI AL absolute eos 0.11 K/uL 0.00-0 .80 Not Available [facility] [address] [place], [address], 02/18/2022 10:49:30 02/19/20 22 02/18/2022 CBC AND DIFFE RENTI AL absolute basos 0.03 K/uL 0.00-0 .09 Not Available [facility] [address] [place], [address], 02/18/2022 10:49:30 02/19/20 22 02/18/2022 CBC AND DIFFE RENTI AL granulocytes , immature 0.01 K/uL 0.00-0 .05 Not Available [facility] [address] [place], [address], 02/18/2022 10:49:30 02/19/20 22 02/18/2022 BASIC METAB OLIC PANEL sodium 137 mmol/ L 133-14 6 Not Available [facility] [address] [place], [address], 02/18/2022 11:10:32 02/19/20 22 02/18/2022 BASIC METAB OLIC PANEL chloride 101 mmol/ L 96-108 Not Available [facility] [address] [place], [address], 02/18/2022 11:10:32 02/19/20 22 02/18/2022 BASIC METAB OLIC PANEL potassium 5.0 mmol/ L 3.3-5. 1 Not Available [facility] [address] [place], [address], 02/18/2022 11:10:32 02/19/20 22 02/18/2022 BASIC METAB OLIC PANEL CO2 27 mmol/ L 21-35 Not Available [facility] [address] [place], [address], 02/18/2022 11:10:32 02/19/20 22 02/18/2022 BASIC METAB OLIC PANEL BUN 14 mg/dL 6-19 Not Available [facility] [address] [place], [address], 02/18/2022 11:10:32 02/19/20 22 02/18/2022 BASIC METAB OLIC PANEL creatinine 1.10 mg/dL 0.5-1. 5 Not Available [facility] [address] [place], [address], 02/18/2022 11:10:32 02/19/20 22 02/18/2022 BASIC METAB OLIC PANEL glucose 93 mg/dL 70-99 Not Available [facility] [address] [place], [address], 02/18/2022 11:10:32 02/19/20 22 02/18/2022 BASIC METAB OLIC PANEL calcium 9.7 mg/dL 8.4-10 .3 Not Available [facility] [address] [place], [address], 02/18/2022 11:10:32 02/19/20 22 02/18/2022 BASIC METAB OLIC PANEL eGFR 93 mL/mi n/1.7 3m2 >59 Estim ated glome rular filtr ation rate calcu lated using the CKD-E PI refit equat ion. Not Available [facility] [address] [place], [address], 02/18/2022 11:10:32 02/19/20 22 02/18/2022 BASIC METAB OLIC PANEL anion gap 14 mmol/ L 10-20 Not Available [facility] [address] [place], [address], 02/18/2022 11:10:32 02/19/20 22 02/18/2022 C-YUNG CTIVE PROTE IN C reactive protein <3.0 mg/L 0.0-4. 0 Not Available [facility] [address] [place], [address], 02/18/2022 11:15:15 02/19/20 22 02/18/2022 URINA LYSIS W/REF CHEMA URINE CULTU RE color Yellow yellow Not Available [facility] [address] [place], [address], 02/18/2022 11:36:42 02/19/20 22 02/18/2022 URINA LYSIS W/REF CHEMA URINE CULTU RE clarity Clear Not Available [facility] [address] [place], [address], 02/18/2022 11:36:42 02/19/20 22 02/18/2022 URINA LYSIS W/REF CHEMA URINE CULTU RE glucose Negati ve negati ve Not Available [facility] [address] [place], [address], 02/18/2022 11:36:42 02/19/20 22 02/18/2022 URINA LYSIS W/REF CHEMA URINE CULTU RE bili Negati ve negati ve Not Available [facility] [address] [place], [address], 02/18/2022 11:36:42 02/19/20 22 02/18/2022 URINA LYSIS W/REF CHEMA URINE CULTU RE ketones Negati ve negati ve Not Available [facility] [address] [place], [address], 02/18/2022 11:36:42 02/19/20 22 02/18/2022 URINA LYSIS W/REF CHEMA URINE CULTU RE specific gravity 1.015 1.005- 1.030 Not Available [facility] [address] [place], [address], 02/18/2022 11:36:42 02/19/20 22 02/18/2022 URINA LYSIS W/REF CHEMA URINE CULTU RE blood Negati ve negati ve Not Available [facility] [address] [place], [address], 02/18/2022 11:36:42 02/19/20 22 02/18/2022 URINA LYSIS W/REF CHEMA URINE CULTU RE pH 6.0 5.0-8. 0 Not Available [facility] [address] [place], [address], 02/18/2022 11:36:42 02/19/20 22 02/18/2022 URINA LYSIS W/REF CHEMA URINE CULTU RE protein Negati ve negati ve Not Available [facility] [address] [place], [address], 02/18/2022 11:36:42 02/19/20 22 02/18/2022 URINA LYSIS W/REF CHEMA URINE CULTU RE nitrite Negati ve negati ve Not Available [facility] [address] [place], [address], 02/18/2022 11:36:42 02/19/20 22 02/18/2022 URINA LYSIS W/REF CHEMA URINE CULTU RE leukocyte esterase, ur Negati ve negati ve Not Available [facility] [address] [place], [address], 02/18/2022 11:36:42 02/19/20 22 02/18/2022 COVID JYOTI SOLITARIO RESPI RATOR Y VIRAL ORDER (PRO) test ordered Rapid COVID has been ordere d Not Available [facility] [address] [place], [address], 02/18/2022 14:31:54 02/19/20 22 02/18/2022 COVID JYOTI SOLITARIO RESPI RATOR Y VIRAL ORDER (PRO) specimen source/descr iption NASAL Not Available [facility] [address] [place], [address], 02/18/2022 14:31:54 02/19/20 22 02/18/2022 COVID JYOTI SOLITARIO RESPI RATOR Y VIRAL ORDER (PRO) sars-cov 2 (covid-19) PCR Not Detect ed not detect ed SARS- CoV-2 not detec heidy Negat lety resul ts do not precl ude SARS- CoV-2 infec tion and shoul d not be used as the sole basis for patie nt manag ement decis ions. Negat lety resul ts must be combi guero with clini soraida obser vatio ns, patie nt histo ry, and epide miolo gical infor matio n. This test has been autho rized by the FDA under an Emerg ency Use Autho rizat ion (EUA) for use by 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 Not Available [facility] [address] [place], [address], 02/18/2022 14:31:54 04/11/20 21 04/11/2021 US, scrot um US SCROTU M AND TESTIC LES TECHNI QUE: Scrota l Ultras ound. Color and spectr al Dopple r perfor med. COMPAR MITESH: None. FINDIN GS: Right hemisc rotum: Testic le: 5.0 x 2.6 x 2.5 cm No focal lesion . Dopple r: Normal intrat esticu lar blood flow with color Dopple r. Epidid ymis: Normal . Varico joe: None. Hydroc samantah: None. Left hemisc rotum: Testic le: 5.2 x 2.3 x 3.4 cm No focal lesion . Dopple r: Normal intrat esticu lar blood flow with color Dopple r. Epidid ymis: Normal . Varico joe: None. Hydroc samantha: None. IMPRES SETH: Normal scrota l ultras ound. Electr onical ly Signed by: Michelle Strauss on 2020 5:06 PM Interp reted by: Michelle Strauss MD Signed by: Michelle Strauss MD Final result Bilat testic le pain into bladde r Bilat testic les appear wnl Flow seen bilat KATELYN arroyo [facility] [address] [place], [address], 04/11/2021 22:07:52 05/21/19 22 05/21/2021 xr knee 4 or more views (left ) XR KNEE 4 OR MORE VIEWS (LEFT) COMPAR MITESH: None. FINDIN GS: There is no acute fractu re or trauma tic disloc ation. There is a modera te suprap atella r effusi on. No radiog raphic ally appare nt foreig n body is seen. IMPRES SETH: 1.No acute fractu re or disloc ation. 2.Mode rate suprap atella r effusi on. Electr onical ly Signed by: Dr. Kaylin Barnes on 022 3:46 AM Interp reted by: Kaylin Barnes MD Signed by: Kaylin Barnes MD 2 Final result Pt report s fallin g direct ly on left knee after slippi ng on ice yester day 05/20 @ 1300 / pain + visibl e swelli ng KATELYN LEAVITT [facility] [address] [place] [address], [id number], 05/21/2021 09:29:23 02/19/2002/18/2022 CT pelvi s (bony pelvi s) with contr ast CT PELVIS (BONY PELVIS ) WITH CONTRA ST TECHNI QUE: Multid etecto r-row CT of the bony pelvis , with intrav enous contra st using dose-m odulat ion techni ques. Images were recons tructe d in the axial, bhakta l, and sagitt al planes . COMPAR MITESH: None. FINDIN GS: Bones and Joints : No fractu re. Normal alignm ent. No effusi on. Sacral izatio n of the right L5 hemive rtebra l body. Soft Tissue s: Normal . IMPRES SETH: 1.No displa kimberly fractu re or malali gnment . 2.Sacr alizat ion of the right L5 verteb ral body. Electr onical ly Signed by: Sherif Montiel on 2021 12:19 PM Interp reted by: Sherif Montiel MD Signed by: Sherif Montiel MD Final result KATELYN LEAVITT [facility] [address] [place] [address], [id number], 02/19/2022 19:56:28 Result Notes None recorded. 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 Richard [facility]) LUZMARIA Stevenson [address] [place] [address], [phone], [facility] 2 10:33:44 Problem Notes None recorded. Procedures Surgical History Date Name Laterality Status Provider Name and Address Organization Details Recorded Time 1 prevention-sabine ual alcohol misuse screening completed Katty Nj CMA [facility] 08/25/2020 16:53:49 7 Suture/staple Removal completed Kathi Garrido PA-C [address] [place], [address], [facility] 11/13/2016 14:42:47 Imaging Results Imaging Date Name Status LastModified by Organiz ation Details LastModified Time 04/11/2021 US, scrotum completed [facility] [address] [place] [address], [id number], 04/11/2021 22:07:52 05/21/2021 xr knee 4 or more views (left) completed [email or web address] [address] [place] [address], [id number], 05/21/2021 09:29:23 02/18/2022 CT pelvis (bony pelvis) with contrast completed [facility] [address] [place] [address], [id number], 02/19/2022 19:56:28 Procedure Notes None recorded. Medical Equipment None Reported. Allergies Allergen ID Allergen Name Allergen Category Reaction Reaction Severity Criticality Documentation Date Start Date Code Code System Note Provider Name and Address Organization Details Recorded Time fentanyl medicatio n Not available Not available Not available 07/18/2017 4337 RxNorm had to be remin ded to start lani hilario when he was on it Daniela Ryan user, [facility] 8 13:46:37 Medications Name Sig Start Date Stop Date Status Note LastModified by Organization Details LastModified Time hydrocodo ne 5 mg-acetam inophen 325 mg tablet 11/13 completed Not Available Not Available Not Available meloxicam 15 mg tablet TAKE 1 TABLET BY MOUTH DAILY active Not Available Not Available No t Available prednison e 20 mg tablet TAKE 1 TABLET BY MOUTH DAILY FOR 5 DAYS active Not Available Not Available No t Available ciproflox acin 500 mg tablet 11/13 completed Not Available Not Available Not Available sulfameth oxazole 800 mg-trimet hoprim 160 mg tablet TAKE 1 TABLET BY MOUTH TWICE DAILY FOR 10 DAYS active Not Available Not Available No t Available pentoxify lline ER 400 mg tablet,ex tended release TAKE 1 TABLET BY MOUTH TWICE DAILY WITH MEALS 09/01 completed Pt finished course. 09/01/21 NMT Not Available Not Available Not Available oxycodone -acetamin ophen 5 mg-325 mg tablet 11/13 completed Not Available Not Available Not Available tamsulosi n 0.4 mg capsule TAKE 1 CAPSULE BY MOUTH AT BEDTIME active Not Available Not Available No t Available cephalexi n 500 mg capsule take 1 capsule by mouth three times a day for 10 days 05/15 completed Not Available Not Available Not Available mupirocin 2 % topical ointment APPLY A SMALL AMOUNT TO THE AFFECTED AREA TOPICALL Y THREE TIMES PER DAY 07/18 completed Not Available Not Available Not Available ibuprofen 600 mg tablet 09/01 completed OTC Not Available Not Available Not Available levofloxa trung 500 mg tablet TAKE 1 TABLET BY MOUTH DAILY active Not Available Not Available No t Available naproxen 500 mg tablet TAKE 1 TABLET BY MOUTH TWICE DAILY AFTER MEALS FOR 14 DAYS 06/26 completed Not Available Not Available Not Available Pramosone 2.5 %-1 % lotion 11/13 completed Not Available Not Available Not Available amoxicill in 875 mg-potass ium clavulana te 125 mg tablet 07/18 completed Not Available Not Available Not Available oxycodone 5 mg tablet 07/18 completed Not Available Not Available Not Available neomycin- polymyxin -hydrocor t 3.5 mg-10,000 unit/mL-1 % ear drops,ashleigh p INSTILL 4 DROPS TO RIGHT EAR THREE TIMES DAILY FOR 10 DAYS 05/15 completed Not Available Not Available Not Available diclofena c 1 % topical gel APPLY 2 GRAMS TOPICALL Y TO THE AFFECTED AREA FOUR TIMES DAILY 06/11 completed not using 04/12/21 ds, not using 05/13/21 sf, No longer using 05/31/21 NMT Not Available Not Available Not Available Protein Nutrition al Shake One drink daily 06/26 completed Not Available Not Available Not Available Vitals Date Recorded Body height Body mass index (BMI) Body weight Heart rate Systolic blood pressure Diastolic blood pressure Provider Name and Address Organization Details Last Updated DateTime 1 182.25 cm 22 kg/m2 37312.3 7 g 68 /min 104 mm[Hg] 60 mm[Hg] Haily Antonio, [facility] 1 08:09:58 Date Recorded Body height Body mass index (BMI) Body weight Heart rate Systolic blood pressure Diastolic blood pressure Provider Name and Address Organization Details Last Updated DateTime 2 182.25 cm 22.3 kg/m2 19295.9 6 g 80 /min 122 mm[Hg] 80 mm[Hg] Cande Penaloza, [facility] 2 10:29:35 Date Recorded Body height Body mass index (BMI) Body weight Heart rate Systolic blood pressure Diastolic blood pressure Provider Name and Address Organization Details Last Updated DateTime 2 182.25 cm 22.3 kg/m2 36698.9 6 g 58 /min 126 mm[Hg] 74 mm[Hg] Katty Nj [facility] 2 10:48:20 Date Recorded Body height Body mass index (BMI) Body weight Systolic blood pressure Diastolic blood pressure Provider Name and Address Organization Details Last Updated DateTime 06/11/2021 182.25 cm 22.3 kg/m2 17453.56 g 124 mm[Hg] 78 mm[Hg] Abena Morales [facility] 2 15:25:40 Date Recorded Body height Body mass index (BMI) Body weight Heart rate Systolic blood pressure Diastolic blood pressure Systolic blood pressure Diastolic blood pressure Provider Name and Address Organization Details Last Updated DateTime 2 182.25 cm 21.9 kg/m2 05597.8 8 g 70 /min 125 mm[Hg] 80 mm[Hg] 122 mm[Hg] 76 mm[Hg] Katty Nj [facility] 2 15:52:10 Social History Question Answer Notes LastModified by Organizat ion Details LastModified Time Tobacco Smoking Status Never Smoker Viji Terrell naidu [facility] 03/14/2016 13:39:22 What Is Your Level Of Alcohol Consumption? Occasional A Few Drinks Once A Month Or So Or Less Information not available 09/01/2021 Do You Wear A Helmet When Biking? Yes Information not available 03/14/2016 What Is Your Level Of Caffeine Consumption? Occasional Energy Drink Occ/Coffee Rare [email or web address] Information not available 09/01/2021 How Much Tobacco Do You Chew? None Information not available 03/14/2016 Are You Currently Employed? Yes Information not available 09/01/2021 What Type Of Diet Are You Following? REGULAR Could Eat More Veggies Information not available 03/14/2016 Which Illicit Or Recreational Drugs Have You Used? Smoke Boelus Once In A While Information not available 03/14/2016 Do You Or Have You Ever Used E-cigarettes Or Vape? Never Used Electronic Cigarettes [email or web address] Information not available 08/26/2020 Education 2 Year College Information not available 03/14/2016 What Is The Highest Grade Or Level Of School You Have Completed Or The Highest Degree You Have Received? 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 Own[employer] [email or web address] Information not available 08/26/2020 How Many Days In The Past Year Have You Had A Heavy Drinking Consumption (4+ Female, 5+ Male)? 0 [email or web address] Information not available 07/31/2018 Are There Any Guns Present In Your Home? No Information not available 03/14/2016 Do You Use Insect Repellent Routinely? No [email or web address] Information not available 09/01/2021 Live Alone Or With Others? With Others Radha Freed Information not available 03/14/2016 Does The Patient Have Difficulty Speaking Maldivian? No Information not available 03/14/2016 Does The Patient Have Difficulty Reading Maldivian? No Information not available 03/14/2016 Patient Has Health Care Proxy Signed And In Chart Yes Mom cruz Information not available 07/18/2017 Marital Status Single Informatio n not available 03/14/2016 Mosquito Repellent Used Routinely No Information not available 03/14/2016 What Was The Date Of Your Most Recent Tobacco Screening? 09/01/2021 Information not available 09/01/2021 How Many Children Do You Have? 0 Information not available 03/14/2016 What Is Your Relationship Status? Single GF For 8yrs. [email or web address] Information not available 09/01/2021 Do You Use Your Seat Belt Or Car Seat Routinely? Yes [email or web address] Information not available 09/01/2021 Seat Belts Used Routinely Yes Information not available 03/14/2016 Smoke Alarm In Home Yes Information not available 03/14/2016 Do You Have Smoke And Carbon Monoxide Detectors In Your Home? Yes [email or web address] Information not available 09/01/2021 Are You Passively Exposed To Smoke? Yes Work Equipment [email or web address] Information not available 09/01/2021 Do You Or Have You Ever Used Smokeless Tobacco? Never Used Smokeless Tobacco Information not available 08/26/2020 What Types Of Sporting Activities Do You Participate In? Baseball/ Soccer Information not available 03/14/2016 General Stress Level Medium Information not available 03/14/2016 Do You Use Any Illicit Or Recreational Drugs? Yes [email or web address] Information not available 09/01/2021 Do You Use Sunscreen Routinely? Yes Information not available 03/14/2016 Do You Or Have You Ever Used Any Other Forms Of Tobacco Or Nicotine? No [email or web address] Information not available 05/13/2021 Sex: Male Functional Status Question Answer Note LastModified by Organization D etails LastModified Time What is your exercise level? Moderate [email or web address] Information not available 09/01/2021 Mental Status None recorded. Family History Relationship Description Onset Age of this Age Resolved Age Notes LastModified by Organization Details LastModified Time Mother Hypertensive disorder [email or web address] Not available 2015 13:49:01 Unspecified Relation Diabetes mellitus cousin : ?type 1 dx at 15yo [email or web address] Not available 03/14/2016 13:49:39 Maternal Grandfather Cerebrovascu lar accident 72 [email or web address] Not available 13:50:05 Maternal Uncle Myocardial infarction 52 [email or web address] Not available 03/14 13:50:20 Maternal Uncle Depressive disorder [email or web address] Not available 2015 13:52:59 Notes:no colon CA, prostate CA, breast CA Medical History No medical history recorded. Immunizations Vaccine Type Date Status Note Provider Nam e and Address Organization Details Recorded Time Tdap 11/05/2016 completed Not Available [facility] 02/18/2022 22:04:12 COVID-19, mRNA, LNP-S, PF, 100 mcg/0.5mL dose or 50 mcg/0.25mL dose 09/03/2020 completed Not Available [facility] 22:04:12 COVID-19, mRNA, LNP-S, PF, 100 mcg/0.5mL dose or 50 mcg/0.25mL dose 10/01/2020 completed Not Available [facility] 22:04:12 Past Encounters Encounter ID Performer Location Encounter Start Date Encounter Closed Date Diagnosis/Indication Diagnosis SNOMED-CT Code Diagnosis ICD10 Code [id number] MAHENDRA Horn, [facility], OFFICE [address] [place] [address] 03/14/2016 13:10:24 03/14/2016 14:11:16 Knee pain 13336976 M25.561 Pain in elbow 66809066 M 25.516 [id number] FAWN Madrid, [facility], OFFICE [address] [place] [address] 6 11/13/2016 13:26:03 11/13/2016 13:58:01 Laceration of hand 477801358 S61.411D [id number] MD ISIAH Iniguez, [facility], OFFICE [address] [place] [address] 03/22/2017 15:49:28 03/23/2017 12:50:02 Acute folliculitis 501969535 L73.9 [id number] Katelyn Leavitt NP , [facility], OFFICE [address] [place] [address] 6 05/15/2017 08:10:31 05/15/2017 08:40:35 Perianal abscess 45830911 K61.0 [id number] MAHENDRA Horn, [facility], OFFICE [address] [place] [address] 6 07/18/2017 13:40:15 07/18/2017 14:15:25 Adult health examination 364161832 Z00.00 Depression screening 171 911067 Z13.[address] [facility] shoulder joint 8767815164 0408632 M25.041 [id number] Sina Alegre MD Sports Medicine, [address] [address] 07/30/2017 10:31:36 08/01/2017 15:25:54 Shoulder pain 74378596 M25.140 [id number] Sports Medicine, [address] [address] 08/27/2017 09:38:05 08/27/2017 16:00:49 Shoulder pain 90785238 M25.607 [id number] Sina Alegre MD Sports Medicine, [facility] [address] [place] [address] 08/30/2017 13:02:02 08/31/2017 12:48:06 Shoulder pain 72679459 M25.538 [id number] MAHENDRA Horn, [facility], OFFICE [address] [place] [address] 6 07/31/2018 13:25:39 07/31/2018 14:00:10 Adult health examination 662456523 Z00.00 Depression screening 171 974556 Z13.89 Thoracic back pain 48939 8004 M54.6 Recent weight loss 25684 7000 R63.4 [id number] Katelyn Leavitt NP , [facility], OFFICE [address] [place] [address]67[address] 6 08/14/2018 14:07:05 08/15/2018 07:59:06 Backache 660744075 M54.9 [id number] Kathi Garrido PA-C , [facility], OFFICE [address] [place] [id number] 06/27/2019 13:32:15 06/27/2019 14:08:38 Pain in penis 592589346 N48.89 [id number] Teddy Cardoso PA-C , [facility], OFFICE [address] [place] [address] 6 10/17/2019 09:08:32 10/20/2019 10:57:49 Pain in penis 549682390 N48.89 Dysuria 80512208 R30.9 [id number] Lei Ghotra MD , [facility], OFFICE [address] [place] [address] 06/23/2020 14:59:52 06/25/2020 13:56:36 Dysuria 09987392 R30.9 Pain in penis 171934409 N48.89 Venereal d isease screening 422999366 Z11.3 [id number] Katelyn Leavitt NP , [facility], OFFICE [address] [place] [address] 08/26/2020 15:41:25 08/26/2020 16:18:55 Adult health examination 183734237 Z00.00 Depression screening 171 152362 Z13.31 Screening for alcohol abuse 147880145 Z13.39 Pain of ri ght shoulder joint 2722212456 1422210 M25.511 Induration penis plastica 2593948 N48.6 [id number] Sina Alegre MD Sports Medicine, [address] [address] 11/17/2020 10:52:37 11/18/2020 14:03:31 Shoulder pain 46114511 M25.772 [id number] LUZMARIA Stevenson FP, [facility], OFFICE [address] [place] [address] 04/12/2021 07:58:47 04/18/2021 14:51:11 Induration penis plastica 1554227 N48.6 Pain in testicle 6589976 9 N50.618 [id number] LUZMARIA Stevenson , [facility], OFFICE [address] [place] [address] 6 05/13/2021 10:15:49 05/16/2021 10:11:57 Pain in testicle 42589478 N50.819 Epididymitis 36842254 N4 5.1 [id number] Katelyn Leavitt NP , [facility], OFFICE [address] [place] [address] 05/31/2021 10:40:39 06/01/2021 15:31:48 Pain of left knee region 5335287376 73905 M25.562 Immunization advised 310 084993 Z71.9 [id number] DARRYL Terrell , [facility], OFFICE [address] [place] [address] 06/11/2021 15:15:55 06/14/2021 10:26:57 Epididymitis 87692106 N45.1 [id number] Katelyn Leavitt NP , [facility], OFFICE [address] [place] [address] 09/01/2021 15:33:34 09/01/2021 16:10:13 Adult health examination 432005917 Z00.00 Depression screening 171 042558 Z13.31 Screening for alcohol abuse 508114424 Z13.39 Active or passive immunization 084620330 Z23 Screening for disorder 308706016 Z11.59 Epididymitis 17226740 N4 5.1 Health Concerns Section Related Observation LastModified by Organization Detai ls LastModified Time None Recorded Concern Status LastModified by Organization Details LastModified Time None Recorded Advance Directives Directive None Recorded Payers Encounter Date Sequence Insurance Name Policy Number Policy Harrington Covered Member ID Harrington Member ID Guarantor Name 04/12/2021 1 [facility] [employer] [facility] TYPE I (HMO) [id number] Calvin Penningtontein [id number] Calvin Gorgesatya 05/13/2021 1 [facility] TYPE I (HMO) [id number] Calvin Lizarragalindatein [id number] Calvin Gorgesatya 05/31/2021 1 [facility] TYPE I (HMO) [id number] Calvin Lizarragalindatein [id number] Calvin Gorgesatya 06/11/2021 1 [facility] TYPE I (HMO) [id number] Calvin Penningtonsatya [id number] Calvin Gorgesatya 09/01/2021 1 [facility] TYPE I (HMO) [id number] Calvin Lizarragadior [id number] Calvin Pickering Notes Date Note Type Note Provider Name and Address Organization Details Recorded Time 04/12/2021 text/html [birth year]89 yo michele carrizales presenting for ER f/u. seen at [facility] ER yesterday for testicular pain, gradual x last few days w/ hx peyronies disease which he sees urology for, low risk for STDs/monogamous and uses condoms; US and UA negative, + cremasteric reflex, dx with suspected epididimitis and given 10 day course of levofloxacin and ibuprofen feeling pretty much the same since yesterday, only took 1 pill of the abx so farwondering what caused this, any preventative measures?no f/c, feeling otherwise welllast saw urology for VV around Sep, has not made f/u yet LUZMARIA Stevenson [address] [place] [address], [place], [address], [facility] 04/12/2021 08:26:39 05/13/2021 text/html [birth year]29 yo tc perdue presenting for testicular pain.- recurrent testicular pain symptoms x2 days- states started gradually, not as bad as last time - described as pressure L>R testicle- feels pressure in bladder again, pinching when he urinates- some low back pain but unsure if from shoveling or not- previously better w/ levoFLOXacin, wondering about repeating this- no f/c, otherwise feeling well- no hematuria, not concerned for STDs [birth year]89 yo male presenting for ER f/u. seen at [facility] ER yesterday for testicular pain, gradual x last few days w/ hx peyronies disease which he sees urology for, low risk for STDs/monogamous and uses condoms; US and UA negative, + cremasteric reflex, dx with suspected epididimitis and given 10 day course of levofloxacin and ibuprofen feeling pretty much the same since yesterday, only took 1 pill of the abx so farwondering what caused this, any preventative measures?no f/c, feeling otherwise welllast saw urology for VV around Sep, has not made f/u yet LUZMARIA Stevenson [address] [place], [address], [facility] 05/13/2021 10:52:38 05/31/2021 text/html 05/31/21 30yo M presents for ER follow up visit for left knee pain - Was ice fishing on 05/20, fell forward and caught foot in sled fell on left knee. no twist- [facility] ED 05/21/21: left knee contusion r/t slip on ice 05/20. no fracture on xray. knee immobilizer declined- gettingmuch better- ibuprofen has helped- not hurting unless walking up stairs. then feeling it a little - no bruising- may notice trace swelling at this point Katelyn Leavitt NP [address] [place], [address], [facility] 05/31/2021 11:08:37 06/11/2021 text/html He has been seen and treated for epididymitis twice recently and treated with antibiotics each time. He has been diagnosed with peyronie's by his urologist previously. By day 3 on the antibiotics he was feeling better and the testicular pain resolved. He was advised to follow up with his urologist but he can't be seen until June and the symptoms have started to return over the couple of days. He has a difficult time starting to urinate. His testicles feel really heavy. He has pain in his lower abdomen and some pain from his groin up into his pelvis. He has some slight nausea but does not feel like he is going to throw up. June Squires, [employer] [address] [place], [address], [facility] 06/13/2021 14:47:49 09/01/2021 text/html Physical Exam/MaleReported bypatient.Kun morelos is here for a Wellness Visit. He describes his health status as good. Patient's health is the same as last year.Risk Assessment and Lifestyle Change Counseling 18-50Reported bypatient.Coronary Artery Disease Risk Assesment:Family History of Coronary Artery Disease(maternal uncle); No personal history of diabetes; No history of peripheral vascular disease, AAA, or carotid disease; No personal history of coronary artery disease Breast Cancer Risk Assessment:No family history of breast cancer; No history of breast cancer or dcis Lung Cancer Risk Assessment:Never smoked; No asbestos exposure Cognitive/Behaviora l Risk Assessment:No personal history of mental illness;Family history of mental illness Safety Risk Assessment:No evidence of abuse/neglect Diet:Counseled about appropriate portion size; Counseled about eating a diet low in trans and saturated fats and high in fiber, fruits and vegetables; Counseled about appropriate calcium intake and good dietary sources of calcium.; Counseled about the importance of maintaining a positive calcium balance and taking 1000 iu Vitamin D daily.; Counseled about decreasing carbohydrates; Counseled about decreasing salt in diet; Discussed the value of a Mediterranean diet, and eating more fruits and vegetables Exercise counseling:Discusse d the importance of daily physical activity; Discussed the importance of weight bearing exercise Safety:Counseled about protecting skin from the sun and lowering the risk of skin cancer; Counseled about avoiding excessive and unsafe alcohol intake; Counseled about safer sexual practice; Counseled about use of helmets for high velocity activiities; Counseled about home safety including use of smoke detectors, CO detectors, keeping home water temperature less than 120; Counseled about use of seat belts Family Planning:Using control condoms; Does not desire 09/01/21 30yo M presents for wellness visit - HCP: On file- tetanus due 2026- covid vaccines x2, booster encouraged He thinks he had covid a few weeks ago. GF tested positive. He had Sx but did not test recurrent/persisten t epididimitis- Pt states a couple mos ago, was told by urologist had prostate infection, was on abx levofloaxcin, meloxicam and prednisone, was supposed to f/up but had covid was not able to get in until October- Pt reporting prostate does not feel completely better- never resolved but close. 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
== END 2024-04-15 09:14 | disposition home or self-care (01) ==
LOC: HO.HUSH 08:44
PROVIDERS: PCP Nurse Practitioner Family; Visit Provider Urology
DX: N41.1 Chronic prostatitis (principal)
CPT/HCPCS: 99213

== ENCOUNTER → 2024-04-15 08:44 | Outpatient (BNVA) | payer OTHER, SELFPAY | PROVIDERS: PCP Nurse Practitioner Family; Visit Provider Urology ==

== ENCOUNTER 2024-05-22 10:16 | Outpatient (AMB) | payer OTHER, SELFPAY ==
--- NOTE | 2024-05-22 10:18 | A.OFFVIS_ITS ---
Intake Visit Reasons: follow up/Prostatitis Intake Note: Patient is present for PROSTATITISI F/U Urology Medication:LEVOFLOXACIN Antibiotic Allergy:NONE Blood Thinner:NONE Quality Assurance Supervisor Final Required: No Allergies No Known Allergies Allergy (Verified 05/30/24 09:21) HPI Comments Details: Calvin is a pleasant male. He is a patient of Dr. Haney. He is seen for the following urologic conditions - discomfort and pain with erection - chronic prostatitis Four month reviewed Prostatic massage with repeat Microgen Has pain on left pelvic sidewall consistent with chronic pelvic pain syndrome States he did have improvement with treatment at 500 of Levaquin. Slowly has improved. We discussed going on low-dose Levaquin for the next 3 months. He would like to do this. Prescription provided. Review in 4 months Microgen 12/14 - Klebsiella + Routella - sensitive to Levaquin Trial retreatment with 30 days Microgen result 10/14 low load Staphylococcus +fungus. Treated with clindamycin plus fluconazole Had 75% improvement Will re-treat to try and resolve symptoms P.r.n. 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 [facility] Medical History Abscess of anal or rectal region Surgical History No pertinent past surgical history Social History Housing: House Patient Tobacco Use Status: Never used Tobacco e-Cigarette/Vaping Use: Never Used service: No Current occupational status: employed Current occupation: [employer] Hand Cognitive needs: No Hearing needs: No Vision needs: No Review of Systems Const Denies chills and Denies fever(s) Card Reports no additional complaints and Denies syncope Resp Denies cough GI Denies abdominal pain and Denies heartburn Reports as per HPI and Denies change in libido Neuro Denies syncope Psych Denies change in libido Endo Denies change in libido Physical Exam Const General: cooperative, healthy appearing, comfortable and no acute distress Orientation/consciousness: patient oriented x3 HEENT Face and sinus: Yes normal facial exam Mouth: moist mucous membranes Neck Neck: Yes normal visual inspection, Yes full ROM and Yes trachea midline Chest Chest palpation & inspection: normal inspection of the chest Resp Effort & Inspection: normal respiratory effort, able to speak in complete sentences and no respiratory distress GI Inspection: Yes normal to inspection Rectal Exam - Male: Yes normal sphincter tone and Yes prostate normal Male General Exam: Yes normal external exam Penis: normal penis and circumcised Meatus: meatus normal Scrotum: scrotum normal Testes: Testes normal Back/Spine/Pelvis Cervical Spine: normal cervical lordosis Thoracic/Lumbar Spine: thoracic and lumbar spine normal to inspection Skin General skin exam: no rashes or lesions noted Neuro General: patient oriented x3, gait normal, tone normal and moves all extremities Extrem General: Yes normal to inspection and Yes capillary refill normal Assessment & Plan Assessment & Plan (1) Chronic prostatitis: Code(s): N41.1 - Chronic prostatitis Category: Medical (2) Penile pain: Code(s): N48.89 - Other specified disorders of penis Category: Medical Plan Microgen One-week follow-up discuss result Patient Instructions: This note is constructed using voice recognition software. While every effort has been made to ensure accuracy retail office associate errors may have been included. Imaging studies, laboratory and physical exam results were discussed and reviewed in detail. No major barriers to patient understanding were identified. An opportunity to ask questions regarding the treatment plan was provided. All questions were answered. The patient expressed understanding and agreement with the above treatment plan. The patient is aware they should contact our office by phone for worsening of their current condition or the appearance of new urologic symptoms. Compliance is encouraged with any medications and followup testing that is ordered. It is a privilege to participate in the urologic care of your patient. If you have any questions or concerns regarding treatment for the above conditions, or other urologic issues, please do not hesitate to contact me. The office telephone contact is [phone]. Sincerely, Dr Pradip Soto MD, [facility] - Urology Compassionate Specialist Care for the Genitourinary System Coding Level of Care Code Est Pt Level 4 (18411) Diagnoses Chronic prostatitis N41.1 Penile pain N48.89
--- OUTSIDE RECORDS SUMMARY | 2024-05-22 13:41 | XMS_ITS | Data Portability ---
Author Organization [facility], , [facility] Address [address] [place] [address] Care Team Providers Care Operations Advisor Name Role Phone KATELYN LEAVITT Primary Care [...] recorded. Lab urinalysis, dipstick 2021 022 [email or web address] [facility], [address] [place] [address], [address], 2 10:46:37 culture, urine 2021 022 XIMENA [facility], [address] [place], [address], 2 01:21:34 urinalysis, dipstick 2021 022 [email or web address] [facility], [address] [place], [address], 2 16:08:44 hepatitis C virus Ab, serum 2021 022 [facility], [address] [facility], [place], [address], 18:35:53 Referral None recorded. Procedures None recorded. Surgeries None recorded. Imaging None recorded. Medication Orders levofloxaci n 500 mg tablet 2021 zok [facility][id number], [address], [place], [id number], 16:00:22 sulfamethox azole 800 mg-trimetho prim 160 mg tablet [id number] [address], [place], [id number], 18:15:17 Patient TargetsNo targets recorded. Patient Instructions Encounter Date Encounter Id Patient Instructions Last Modified By Organization Details Last Modified Time 04/12/2021 [id number] violet ascencio se education Not available 04/12/2021 08:25:52 epididymitis and orchitis: care instructions Not available 04/12/2021 08:25:52 05/31/2021 [id number] [place] in [place] as scheduled [email or web address] Not available 05/31/2021 11:07:43 06/11/2021 [id number] After a discussi on of treatment options, [...] are worse in any way, we are construction engineer 24 hours a day, 7 days a week by phone: [phone]. -Please let us know if you have [...] fever. [email or web address] Not available 06/13/2021 14:47:23 09/01/2021 [id number] Well Visit, Ages 18 to 65: Care Instructions [email or web address] Not available 09/01/2021 16:09:31 After a discussi [...] CULTU RE color YELLOW yellow Not Available [facility] [address] [place], [address], 04/11/2021 13:58:33 04/11/20 21 04/11/2021 URINA LYSIS W/REF CHEMA URINE CULTU RE clarity CLEAR Not Available [facility] [address] [place], [address], 04/11/2021 13:58:33 04/11/20 21 04/11/2021 URINA LYSIS W/REF CHEMA URINE CULTU RE glucose NEGATI VE negati ve Not Available [facility] [address] [place], [address], 04/11/2021 13:58:33 04/11/20 21 04/11/2021 URINA LYSIS W/REF CHEMA URINE CULTU RE bili NEGATI VE negati ve Not Available [facility] [address] [place], [address], 04/11/2021 13:58:33 04/11/20 21 04/11/2021 URINA LYSIS W/REF CHEMA URINE CULTU RE ketones NEGATI VE negati ve Not Available [facility] [address] [place], [address], 04/11/2021 13:58:33 04/11/20 21 04/11/2021 URINA LYSIS W/REF CHEMA URINE CULTU RE specific gravity 1.025 1.005- 1.030 Not Available [facility] [address] [place], [address], 04/11/2021 13:58:33 04/11/20 21 04/11/2021 URINA LYSIS W/REF CHEMA URINE CULTU RE blood NEGATI VE negati ve Not Available [facility] [address] [place], [address], 04/11/2021 13:58:33 04/11/20 21 04/11/2021 URINA LYSIS W/REF CHEMA URINE CULTU RE pH 6.0 5.0-8. 0 Not Available [facility] [address] [place], [address], 04/11/2021 13:58:33 04/11/20 21 04/11/2021 URINA LYSIS W/REF CHEMA URINE CULTU RE protein NEGATI VE negati ve Not Available [facility] [address] [place], [address], 04/11/2021 13:58:33 04/11/20 21 04/11/2021 URINA LYSIS W/REF CHEMA URINE CULTU RE nitrite NEGATI VE negati ve Not Available [facility] [address] [place], [address], 04/11/2021 13:58:33 04/11/20 21 04/11/2021 URINA LYSIS W/REF CHEMA URINE CULTU RE leukocyte esterase, ur NEGATI VE negati ve Not Available [facility] [address] [place], [address], 04/11/2021 13:58:33 04/11/20 21 04/12/2021 CHLAM YDIA TRACH OMATI S AND NEISS ERIA GONOR RHOEA E NUCLE IC ACID DETEC TION chlamydia trachomatis NOT DETECT ED not detect ed Not Available [facility] [address] [place], [address], 04/12/2021 09:57:05 04/11/20 21 04/12/2021 CHLAM YDIA TRACH OMATI S AND NEISS ERIA GONOR RHOEA E NUCLE IC ACID DETEC TION neiseria gonorrhoeae NOT DETECT ED not detect ed Not Available [facility] [address] [place], [address], 04/12/2021 09:57:05 04/11/20 21 04/12/2021 CHLAM YDIA TRACH OMATI S AND NEISS ERIA GONOR RHOEA E NUCLE IC ACID DETEC TION specimen type URINE Not Available [facility] [address] [place], [address], 04/12/2021 09:57:05 05/13/19 22 05/13/2021 POC UA glu UA NEGATI VE Not Available [facility] [address] [place] [address], [address], 05/13/2021 10:46:32 05/13/19 22 05/13/2021 POC UA clarity UA CLEAR Not Available [facility] [address] [place] [address], [address], 05/13/2021 10:46:32 05/13/19 22 05/13/2021 POC UA uro UA 0.2000 Not Available [facility] [address] [place] [address], [address], 05/13/2021 10:46:32 05/13/19 22 05/13/2021 POC UA ket UA NEGATI VE Not Available [facility] [address] [place] [address], [address], 05/13/2021 10:46:32 05/13/19 22 05/13/2021 POC UA pro UA NEGATI VE Not Available [facility] [address] [place] [address], [address], 05/13/2021 10:46:32 05/13/19 22 05/13/2021 POC UA nit UA NEGATI VE Not Available [facility] [address] [place] [address], [address], 05/13/2021 10:46:32 05/13/19 22 05/13/2021 POC UA manjit UA NEGATI VE Not Available [facility] [address] [place] [address], [address], 05/13/2021 10:46:32 05/13/19 22 05/13/2021 POC UA pH UA 5.5000 Not Available [facility] [address] [place] [address], [address], 05/13/2021 10:46:32 05/13/19 22 05/13/2021 POC UA SG UA 1.0250 Not Available [facility] [address] [place] [address], [address], 05/13/2021 10:46:32 05/13/19 22 05/13/2021 POC UA color UA YELLOW Not Available [facility] [address] [place] [address], [address], 05/13/2021 10:46:32 05/13/19 22 05/13/2021 POC UA blo UA NEGATI VE Not Available [facility] [address] [place] [address], [address], 05/13/2021 10:46:32 05/13/19 22 05/13/2021 POC UA idris UA NEGATI VE Not Available [facility] [address] [place] [address], [address], 05/13/2021 10:46:32 05/13/19 22 05/15/2021 CULTU RE, URINE , ROUTI NE culture, urine, routine CULTU RE, URINE , ROUTI NE Micro Numbe r: [id number] Test Statu s: Final Speci men Sourc e: Urine Speci men Quali ty: Adequ ate Resul t: No Growt h Not Available [facility] [address], [address], 05/15/2021 01:21:34 06/11/19 22 06/11/2021 POC UA glu UA NEGATI VE Not Available [facility] [address] [place] [address], [address], 06/11/2021 15:33:53 06/11/19 22 06/11/2021 POC UA clarity UA CLEAR Not Available [facility] [address] [place] [address], [address], 06/11/2021 15:33:53 06/11/19 22 06/11/2021 POC UA uro UA 0.2000 Not Available [facility] [address] [place] [address], [address], 06/11/2021 15:33:53 06/11/19 22 06/11/2021 POC UA ket UA NEGATI VE Not Available [facility] [address] [place] [address], [address], 06/11/2021 15:33:53 06/11/19 22 06/11/2021 POC UA pro UA NEGATI VE Not Available [facility] [address] [place] [address], [address], 06/11/2021 15:33:53 06/11/19 22 06/11/2021 POC UA nit UA NEGATI VE Not Available [facility] [address] [place] [address], [address], 06/11/2021 15:33:53 06/11/19 22 06/11/2021 POC UA manjit UA NEGATI VE Not Available [facility] [address] [place] [address], [address], 06/11/2021 15:33:53 06/11/19 22 06/11/2021 POC UA pH UA 6.0000 Not Available [facility] [address] [place] [address], [address], 06/11/2021 15:33:53 06/11/19 22 06/11/2021 POC UA SG UA 1.0250 Not Available [facility] [address] [place] [address], [address], 06/11/2021 15:33:53 06/11/19 22 06/11/2021 POC UA color UA YELLOW Not Available [facility] [address] [place] [address], [address], 06/11/2021 15:33:53 06/11/19 22 06/11/2021 POC UA blo UA NEGATI VE Not Available [facility] [address] [place] [address], [address], 06/11/2021 15:33:53 06/11/19 22 06/11/2021 POC UA idris UA NEGATI VE Not Available [facility] [address] [place] [address], [address], 06/11/2021 15:33:53 09/03/19 22 09/05/2021 HEPAT ITIS C AB W/REF L TO HCV RNA, QN, PCR hepatitis C antibody NON-RE ACTIVE non-re active normal Not Available [facility] [place] [facility] [address], [address], 09/05/2021 18:35:52 09/03/1909/05/2021 HEPAT ITIS C AB [...] a test for HCV RNA (test code 33150 ) is sugge sted. For addit ional infor cari rosas pleas e refer to http: //[facility] garvin stdia gnost ics.c om/fa q/FAQ 22v1 (This link is being provi ded for infor matmarcela nal/ educa nabil l purpo ses only. ) Not Available [facility] [place] [facility] [address], [place], [address], 09/05/2021 18:35:52 02/19/2002/18/2022 CBC AND DIFFE RENTI AL WBC 3.55 K/uL 4.00-1 1.00 low Not Available [facility] [address] [place] [address], [address], 02/18/2022 10:49:30 02/19/20 22 02/18/2022 CBC AND DIFFE RENTI AL RBC 4.55 M/uL 4.48-5 .88 Not Available [facility] [address] [place] [address], [address], 02/18/2022 10:49:30 02/19/20 22 02/18/2022 CBC AND DIFFE RENTI AL HGB 14.8 g/dL 13.4-1 7.5 Not Available [facility] [address] [place], [address], 02/18/2022 10:49:30 02/19/20 22 02/18/2022 CBC AND DIFFE RENTI AL HCT 41.6 % 38.0-5 1.0 Not Available [facility] [address] [place], [address], 02/18/2022 10:49:30 02/19/20 22 02/18/2022 CBC AND DIFFE RENTI AL plt 184 K/uL 140-43 0 Not Available [facility] [address] [place], [address], 02/18/2022 10:49:30 02/19/20 22 02/18/2022 CBC AND DIFFE RENTI AL MCV 91.4 fL 78.0-9 7.0 Not Available [facility] [address] [place], [address], 02/18/2022 10:49:30 02/19/20 22 02/18/2022 CBC AND DIFFE RENTI AL MCH 32.5 pg 25.0-3 3.0 Not Available [facility] [address] [place], [address], 02/18/2022 10:49:30 02/19/20 22 02/18/2022 CBC AND DIFFE RENTI AL MCHC 35.6 g/dL 32.0-3 6.0 Not Available [facility] [address] [place], [address], 02/18/2022 10:49:30 02/19/20 22 02/18/2022 CBC AND DIFFE RENTI AL RDW 12.1 % 11.0-1 5.0 Not Available [facility] [address] [place], [address], 02/18/2022 10:49:30 02/19/20 22 02/18/2022 CBC AND DIFFE RENTI AL MPV 9.3 fL 8.4-12 .8 Not Available [facility] [address] [place], [address], 02/18/2022 10:49:30 02/19/20 22 02/18/2022 CBC AND DIFFE RENTI AL diff method Auto Not Available [facility] [address] [place], [address], 02/18/2022 10:49:30 02/19/20 22 02/18/2022 CBC AND DIFFE RENTI AL neuts 44.8 % 43.0-7 5.0 Not Available [facility] [address] [place], [address], 02/18/2022 10:49:30 02/19/20 22 02/18/2022 CBC AND DIFFE RENTI AL lymphs 42.5 % 18.2-4 7.4 Not Available [facility] [address] [place], [address], 02/18/2022 10:49:30 02/19/20 22 02/18/2022 CBC AND DIFFE RENTI AL monos 8.5 % 4.00-1 1.00 Not Available [facility] [address] [place], [address], 02/18/2022 10:49:30 02/19/20 22 02/18/2022 CBC AND DIFFE RENTI AL eos 3.1 % 0.0-8. 0 Not Available [facility] [address] [place], [address], 02/18/2022 10:49:30 02/19/20 22 02/18/2022 CBC AND DIFFE RENTI AL basos 0.8 % 0.0-2. 0 Not Available [facility] [address] [place], [address], 02/18/2022 10:49:30 02/19/20 22 02/18/2022 CBC AND DIFFE RENTI AL granulocytes , immature (%) 0.3 % 0.0-0. 9 Not Available [facility] [address] [place], [address], 02/18/2022 10:49:30 02/19/20 22 02/18/2022 CBC AND DIFFE RENTI AL absolute neuts 1.59 K/uL 1.80-7 .70 low Not Available [facility] [address] [place], [address], 02/18/2022 10:49:30 02/19/20 22 02/18/2022 CBC AND DIFFE RENTI AL absolute lymphs 1.51 K/uL 1.00-3 .10 Not Available [facility] [address] [place], [address], 02/18/2022 10:49:30 02/19/20 22 02/18/2022 CBC AND DIFFE RENTI AL absolute monos 0.30 K/uL 0.20-0 .80 Not Available [facility] [address] [place], [address], 02/18/2022 10:49:30 02/19/20 22 02/18/2022 CBC AND DIFFE RENTI AL absolute eos 0.11 K/uL 0.00-0 .80 Not Available [facility] [address] [place], [address], 02/18/2022 10:49:30 02/19/20 22 02/18/2022 CBC AND DIFFE RENTI AL absolute basos 0.03 K/uL 0.00-0 .09 Not Available [facility] [address] [place], [address], 02/18/2022 10:49:30 02/19/20 22 02/18/2022 CBC AND DIFFE RENTI AL granulocytes , immature 0.01 K/uL 0.00-0 .05 Not Available [facility] [address] [place], [address], 02/18/2022 10:49:30 02/19/20 22 02/18/2022 BASIC METAB OLIC PANEL sodium 137 mmol/ L 133-14 6 Not Available [facility] [address] [place], [address], 02/18/2022 11:10:32 02/19/20 22 02/18/2022 BASIC METAB OLIC PANEL chloride 101 mmol/ L 96-108 Not Available [facility] [address] [place], [address], 02/18/2022 11:10:32 02/19/20 22 02/18/2022 BASIC METAB OLIC PANEL potassium 5.0 mmol/ L 3.3-5. 1 Not Available [facility] [address] [place], [address], 02/18/2022 11:10:32 02/19/20 22 02/18/2022 BASIC METAB OLIC PANEL CO2 27 mmol/ L 21-35 Not Available [facility] [address] [place], [address], 02/18/2022 11:10:32 02/19/20 22 02/18/2022 BASIC METAB OLIC PANEL BUN 14 mg/dL 6-19 Not Available [facility] [address] [place], [address], 02/18/2022 11:10:32 02/19/20 22 02/18/2022 BASIC METAB OLIC PANEL creatinine 1.10 mg/dL 0.5-1. 5 Not Available [facility] [address] [place], [address], 02/18/2022 11:10:32 02/19/20 22 02/18/2022 BASIC METAB OLIC PANEL glucose 93 mg/dL 70-99 Not Available [facility] [address] [place], [address], 02/18/2022 11:10:32 02/19/20 22 02/18/2022 BASIC METAB OLIC PANEL calcium 9.7 mg/dL 8.4-10 .3 Not Available [facility] [address] [place], [address], 02/18/2022 11:10:32 02/19/20 22 02/18/2022 BASIC METAB OLIC PANEL eGFR 93 mL/mi n/1.7 3m2 >59 Estim ated glome rular filtr ation rate calcu lated using the CKD-E PI refit equat ion. Not Available [facility] [address] [place], [address], 02/18/2022 11:10:32 02/19/20 22 02/18/2022 BASIC METAB OLIC PANEL anion gap 14 mmol/ L 10-20 Not Available [facility] [address] [place], [address], 02/18/2022 11:10:32 02/19/20 22 02/18/2022 C-YUNG CTIVE PROTE IN C reactive protein <3.0 mg/L 0.0-4. 0 Not Available [facility] [address] [place], [address], 02/18/2022 11:15:15 02/19/20 22 02/18/2022 URINA LYSIS W/REF CHEMA URINE CULTU RE color Yellow yellow Not Available [facility] [address] [place], [address], 02/18/2022 11:36:42 10/29/20 22 02/18/2022 URINA LYSIS W/REF CHEMA URINE CULTU RE clarity Clear Not Available [facility] [address] [place], [address], 02/18/2022 11:36:42 02/19/20 22 02/18/2022 URINA LYSIS W/REF CHEMA URINE CULTU RE glucose Negati ve negati ve Not Available [facility] [address] [place], [address], 02/18/2022 11:36:42 02/19/2002/18/2022 URINA LYSIS W/REF CHEMA URINE CULTU RE bili Negati ve negati ve Not Available [facility] [address] [place], [address], 02/18/2022 11:36:42 02/19/20 22 02/18/2022 URINA LYSIS W/REF CHEMA URINE CULTU RE ketones Negati ve negati ve Not Available [facility] [address] [place], [address], 02/18/2022 11:36:42 02/19/20 22 02/18/2022 URINA LYSIS W/REF CHEMA URINE CULTU RE specific gravity 1.015 1.005- 1.030 Not Available [facility] [address] [place], [address], 02/18/2022 11:36:42 02/19/20 22 02/18/2022 URINA LYSIS W/REF CHEMA URINE CULTU RE blood Negati ve negati ve Not Available [facility] [address] [place], [address], 02/18/2022 11:36:42 02/19/20 22 02/18/2022 URINA LYSIS W/REF CHEMA URINE CULTU RE pH 6.0 5.0-8. 0 Not Available [facility] [address] [place], [address], 02/18/2022 11:36:42 02/19/20 22 02/18/2022 URINA LYSIS W/REF CHEMA URINE CULTU RE protein Negati ve negati ve Not Available [facility] [address] [place], [address], 02/18/2022 11:36:42 02/19/20 22 02/18/2022 URINA LYSIS W/REF CHEMA URINE CULTU RE nitrite Negati ve negati ve Not Available [facility] [address] [place], [address], 02/18/2022 11:36:42 02/19/20 22 02/18/2022 URINA LYSIS W/REF CHEMA URINE CULTU RE leukocyte esterase, ur Negati ve negati ve Not Available [facility] [address] [place], [address], 02/18/2022 11:36:42 02/19/20 22 02/18/2022 COVID JYOTI SOLITARIO RESPI RATOR Y VIRAL ORDER (PRO) test ordered Rapid COVID has been ordere d Not Available [facility] [address] [place], [address], 02/18/2022 14:31:54 02/19/20 22 02/18/2022 COVID JYOTI SOLITARIO RESPI RATOR Y VIRAL ORDER (PRO) specimen source/descr iption NASAL Not Available [facility] [address] [place], [address], 02/18/2022 14:31:54 02/19/20 22 02/18/2022 COVID JYOTI [...] 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 Not Available [facility] [address] [place] [address], [address], 02/18/2022 14:31:54 04/11/2004/11/2021 US, scrot um US SCROTU M AND [...] . Varico joe: None. Hydroc samantha: None. Left hemisc rotum: Testic le: 5.2 [...] appear wnl Flow seen bilat KATELYN arroyo [facility] [address] [place] [address], [address], 04/11/2021 22:07:52 05/21/19 22 05/21/2021 xr knee [...] + visibl e swelli ng KATELYN LEAVITT [facility] [address] [place] [address], [address], 05/21/2021 09:29:23 02/19/2002/18/2022 CT pelvi s (bony [...] Sherif Montiel MD Final result KATELYN LEAVITT [facility] [address] [place] [address], [address], 02/19/2022 19:56:28 Result Notes None recorded. Problems Name Problem SNOMED Code Status Onset Date Resolution Date Notes Provider Name and Address Organization Details Recorded Time Knee pain Completed 201507/31/2018 right Removal Reason: resolved Katelyn Leavitt NP [address] [place], [address], 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 Richard [facility] LUZMARIA Stevenson [address] [place] [address], [phone], [facility] 2 10:33:44 Problem Notes None recorded. Procedures Surgical History Date Name Laterality Status Provider Name and Address Organization Details Recorded Time 1 prevention-sabine ual alcohol misuse screening completed Katty Nj CMA [facility] 08/25/2020 16:53:49 7 Suture/staple Removal completed Kathi Garrido PA-C [address] [place] [address], [phone], [facility] 11/13/2016 14:42:47 Imaging Results Imaging Date Name Status LastModified by Organiz ation Details LastModified Time 04/11/2021 US, scrotum completed [facility] [address] [place] [address], [address], 04/11/2021 22:07:52 05/21/2021 xr knee 4 or more [facility] (left[email or web address] [address] [place] [address], [address], 05/21/2021 09:29:23 02/18/2022 CT pelvis (bony pelvis) with contrast completed [facility] [address] [place] [address], [address], 02/19/2022 19:56:28 Procedure Notes None recorded. Medical Equipment None Reported. Allergies Allergen ID Allergen Name Allergen Category Reaction Reaction Severity Criticality Documentation Date Start Date Code Code System Note Provider Name and Address Organization Details Recorded Time fentanyl medicatio n Not available Not available Not available 07/18/2017 4337 RxNorm had to be remin ded to start breat yanelis when he was on it Daniela Ryan user, [facility] 8 13:46:37 Medications Name Sig Start Date [...] Not Available Vitals Date Recorded Body height Provider Name an d Address Organization Details Last Updated DateTime 04/12/2021 182.25 cm Haily Antonio [facility] 04/12/2021 08:02:16 Date Recorded Body mass index (BMI) Body weight Provider Name and Address Organization Details Last Updated DateTime 04/12/2021 22 kg/m2 21007.37 g Haily Antonio [facility] 04/12/2021 08:05:44 Date Recorded Heart rate Provider Name an d Address Organization Details Last Updated DateTime 04/12/2021 68 /min Haily Antonio [facility] 04/12/2021 08:09:02 Date Recorded Body height Provider Name an d Address Organization Details Last Updated DateTime 05/13/2021 182.25 cm MICHELE Prado MA [facility] 05/13/2021 10:21:29 Date Recorded Body mass index (BMI) Body weight Provider Name and Address Organization Details Last Updated DateTime 05/13/2021 22.3 kg/m2 50287.96 g Cande Penaloza MA [facility] 05/13/2021 10:24:49 Date Recorded Heart rate Provider Name an d Address Organization Details Last Updated DateTime 05/13/2021 80 /min Cande Penaloza MA [place] Iván Castillo [facility] 05/13/2021 10:29:38 Date Recorded Body height Provider Name an d Address Organization Details Last Updated DateTime 05/31/2021 182.25 cm Katty Nj [facility] 05/31/2021 10:46:26 Date Recorded Body mass index (BMI) Body weight Provider Name and Address Organization Details Last Updated DateTime 05/31/2021 22.3 kg/m2 45350.96 g Katty Nj [facility] 05/31/2021 10:46:52 Date Recorded Heart rate Provider Name an d Address Organization Details Last Updated DateTime 05/31/2021 58 /min Katty Nj [facility] [facility] 05/31/2021 10:48:28 Date Recorded Body height Provider Name an d Address Organization Details Last Updated DateTime 06/11/2021 182.25 cm Abena Morales [facility] 06/11/2021 15:23:49 Date Recorded Body mass index (BMI) Body weight Provider Name and Address Organization Details Last Updated DateTime 06/11/2021 22.3 kg/m2 00194.56 g Abena Morales [facility] 06/11/2021 15:23:56 Date Recorded Body height Provider Name an d Address Organization Details Last Updated DateTime 09/01/2021 182.25 cm Katty Nj [facility] 09/01/2021 15:45:18 Date Recorded Body mass index (BMI) Body weight Provider Name and Address Organization Details Last Updated DateTime 09/01/2021 21.9 kg/m2 47080.88 g Katty Nj [facility] 09/01/2021 15:48:01 Date Recorded Heart rate Provider Name an d Address Organization Details Last Updated DateTime 09/01/2021 70 /min Katty Nj [facility] 09/01/2021 15:48:05 Date Recorded Systolic blood pressure Diastolic blood pressure Provider Name and Address Organization Details Last Updated DateTime 04/12/2021 104 mm[Hg] 60 mm[Hg] Haily Antonio [facility] 04/12/2021 08:09:58 Date Recorded Systolic blood pressure Diastolic blood pressure Provider Name and Address Organization Details Last Updated DateTime 05/13/2021 122 mm[Hg] 80 mm[Hg] Cande Penaloza [facility] 05/13/2021 10:29:35 Date Recorded Systolic blood pressure Diastolic blood pressure Provider Name and Address Organization Details Last Updated DateTime 05/31/2021 126 mm[Hg] 74 mm[Hg] Katty Nj [facility] 05/31/2021 10:48:20 Date Recorded Systolic blood pressure Diastolic blood pressure Provider Name and Address Organization Details Last Updated DateTime 06/11/2021 124 mm[Hg] 78 mm[Hg] Abena Morales [facility] 06/11/2021 15:25:40 Date Recorded Systolic blood pressure Diastolic blood pressure Provider Name and Address Organization Details Last Updated DateTime 09/01/2021 125 mm[Hg] 80 mm[Hg] Katty Nj [facility] 09/01/2021 15:47:50 Date Recorded Systolic blood pressure Diastolic blood pressure Provider Name and Address Organization Details Last Updated DateTime 09/01/2021 122 mm[Hg] 76 mm[Hg] Katty Nj [facility] 09/01/2021 15:52:10 Social History Question Answer Notes LastModified by Organizat ion Details LastModified Time Tobacco Smoking Status [email or web address]/14[facility]2016 13:39:22 What Is Your Level Of Alcohol Consumption? Occasional A Few Drinks Once A Month Or So Or Less Information not available 09/01/2021 Do You Wear A Helmet When Biking? Yes Information not available 03/14/2016 What Is Your Level Of Caffeine Consumption? Occasional Energy Drink Occ/Coffee Rare [email or web address] Information not available 09/01/2021 How Much Tobacco Do You Chew? None Information not available 03/14/2016 Are You Currently Employed? Yes Information not available 09/01/2021 What Type Of Diet Are You Following? REGULAR Could Eat More Veggies Information not available 03/14/2016 Which Illicit Or Recreational Drugs Have You Used? Smoke [place] Once In A While Information not available 03/14/2016 Do You Or Have You Ever Used E-cigarettes Or Vape? Never Used Electronic Cigarettes [email or web address] Information not available 08/26/2020 Education 2 Year College Information not available 03/14/2016 What Is The Highest Grade Or Level Of School You Have Completed Or The Highest Degree You Have Received? 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 0 [email or web address] Information not available 07/31/2018 Are There Any Guns Present In Your Home? No Information not available 03/14/2016 Do You Use Insect Repellent Routinely? No [email or web address] Information not available 09/01/2021 Live Alone Or With Others? With Others Radha Freed Information not available 03/14/2016 Does The Patient Have Difficulty Speaking Irish? No Information not available 03/14/2016 Does The Patient Have Difficulty Reading Irish? No Information not available 03/14/2016 Patient Has Health Care Proxy Signed And In Chart Yes Mom Information not available 07/18/2017 Marital Status Single Informatio n not available 03/14/2016 Mosquito Repellent Used Routinely No Information not available 03/14/2016 What Was The Date Of Your Most Recent Tobacco Screening? 09/01/2021 [email or web address] Information not available 09/01/2021 How Many Children Do You Have? 0 Information not available 03/14/2016 What Is Your Relationship Status? Single GF For 8yrs. [email or web address] Information not available 09/01/2021 Do You Use Your Seat Belt Or Car Seat Routinely? Yes [email or web address] Information not available 09/01/2021 Seat Belts Used Routinely Yes Information not available 03/14/2016 Smoke Alarm In Home Yes Information not available 03/14/2016 Do You Have Smoke And Carbon Monoxide Detectors In Your Home? Yes [email or web address] Information not available 09/01/2021 Are You Passively Exposed To Smoke? Yes Work Equipment [email or web address] Information not available 09/01/2021 Do You Or Have You Ever Used Smokeless Tobacco? Never Used Smokeless Tobacco [email or web address] Information not available 08/26/2020 What Types Of Sporting Activities Do You Participate In? Baseball/ Soccer Information not available 03/14/2016 General Stress Level Medium Information not available 03/14/2016 Do You Use Any Illicit Or Recreational Drugs? Yes [email or web address] Information not available 09/01/2021 Do You Use Sunscreen Routinely? Yes Information not available 03/14/2016 Do You Or Have You Ever Used Any Other Forms Of Tobacco Or Nicotine? No [email or web address] Information not available 05/13/2021 Sex: Male Functional Status Question Answer Note LastModified by Organization D etails LastModified Time What is your exercise level? Moderate [email or web address] Information not available 09/01/2021 Mental Status None [...] Recorded Time Tdap 11/05/2016 completed Not Available [facility] 02/18/2022 22:04:12 COVID-19, mRNA, LNP-S, PF, 100 mcg/0.5mL dose or 50 mcg/0.25mL dose 09/03/2020 completed Not Available [facility] 22:04:12 COVID-19, mRNA, LNP-S, PF, 100 mcg/0.5mL dose or 50 mcg/0.25mL dose 10/01/2020 completed Not Available [facility] 22:04:12 Past Encounters Encounter ID Performer Location Encounter Start Date Encounter Closed Date Diagnosis/Indication Diagnosis SNOMED-CT Code Diagnosis ICD10 Code Diagnosis Note [id number] Katelyn Leavitt NP , [facility], OFFICE [address] [place] [address] 6 03/14/2016 13:10:24 03/14/2016 14:11:16 Knee pain 61181251 M25.561 pt will work on ice, and ibuprofen. will look into PT and college and will call if he would like a referral Pain in elbow 36017539 M 25.521 seems to have resolved with rest. will monitor and follow up as needed [id number] Kathi Garrido PA-C , [facility], OFFICE [address] [place] [address] 6 11/13/2016 13:26:03 11/13/2016 13:58:01 Laceration of hand 718650376 S61.411D - sutures removed- healing well- keep covered while at work- return to office with any concerns- tetanus received in ER [id number] John Menchaca MD , [facility], OFFICE [address] [place] [address] 6 03/22/2017 15:49:28 03/23/2017 12:50:02 Acute folliculitis 039014895 L73.9 [id number] Katelyn Leavitt NP , [facility], OFFICE [address] [place] [address] 6 05/15/2017 08:10:31 05/15/2017 08:40:35 Perianal abscess 89430739 K61.0 recurrent [id number] Katelyn Leavitt NP , [facility], OFFICE [address] [place] [phone] 6 07/18/2017 13:40:15 07/18/2017 14:15:25 Adult health examination 606232971 Z00.00 see Risk Assessment and Lifestyle Change Counseling section above Depression screening 171 022720 Z13.89 depression screening tool administer ed, entered into emr, scored and discussed, time greater than 7.5 minutes. negative Pain of ri ght shoulder joint 4301175742 9324926 M25.511 no acute injury. 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 will get xray and refer to sports med [id number] Sina Alegre MD Sports Medicine, [address] [address] 07/30/2017 10:31:36 08/01/2017 15:25:54 Shoulder pain 35512244 M25.511 Calvin is a 26-year-ol d male with right shoulder pain which I am unable to reproduce at all today in the office. He has no pain at all with provocativ e testing for impingemen t or labral pathology. He has excellent strength and full range of motion. He does have some slightly increased external rotation on the right side but no significan t glenohumer al internal rotation deficit was noted. I reviewed all of this with Calvin today as well as discussing possible causes of his shoulder pain including abnormal pitching mechanics as well as the possibilit y of underlying labral pathology. 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 I did advise that he attend physical therapy working on improving his rotator cuff and periscapul ar strengthen ing as well as working on his pitching mechanics. He was given a referral and will call to set up an appointmen t. He will plan a follow-up with me in 8 weeks for reevaluati on. I did offer that if he is outside the area I am happy to discuss his shoulder over the phone in 8 weeks and he will contact me if this is the case and he is unable to follow-up. [id number] Sports Medicine, [address] [address] 08/27/2017 09:38:05 08/27/2017 16:00:49 Shoulder pain 44241421 M25.511 Calvin is a 26-year-ol d male with right shoulder pain that unfortunat fortunato has been persistent despite physical therapy. He does have some clicking with compressio n rotation testing that is concerning for possible labral pathology. With his persistent symptoms and negative x-rays at asked that he have an MRI arthrogram of his right shoulder done to evaluate for labral pathology amenable to surgical interventi on. He is planning to travel out of the area for several months leaving on September 09 for spring training and will work to obtain this MRI prior to his trip. He will plan to follow up with me after his MRI for reevaluati on although I did advise am willing to discuss his results over the phone if he is outside the area. [id number] Sina Alegre MD Sports Medicine, [facility] [address] [place] [address] 08/30/2017 13:02:02 08/31/2017 12:48:06 Shoulder pain 08766246 M25.511 Calvin is a 26-year-ol d male with right shoulder pain and a recent MRI that demonstrat es no evidence of a labral tear or rotator cuff tear. He also noted area of bony edema within the acromium which may be consistent with a contusion. There was some limitation per the radiologis t due to motion artifact but otherwise this appears to be at rather normal MRI of the shoulder. Julianne bucio the images are not available for me to review personally today in the office. I reviewed all of this with Calvin today. He appears relatively asymptomat ic today and I am unable to reproduce any pain to palpation or provocativ e testing. At this point I have advised that he is finding continue pitching. If he has any resumption of pain he will plan a follow-up with the production trainer or physician in [place] with the team he is working with. I am happy to see him back as needed for further care. [id number] MAHENDRA Horn, [facility], OFFICE [address] [place] [address] 07/31/2018 13:25:39 07/31/2018 14:00:10 Adult health examination 489592920 Z00.00 see Risk Assessment and Lifestyle Change Counseling section above Depression screening 171 378987 Z13.89 depression screening tool administer ed, entered into emr, scored and discussed, time greater than 7.5 minutes. negative Thoracic back pain 68661 8004 M54.6 x1 week. no injury. will try back exercises. hand out given. naproxen twice a day. follow up in 2 weeks Recent weight loss 73322 7000 R63.4 pt reports not eating regularly since moving out of his parents house. he will work on regular meals and will recheck weight when he follows up in a couple weeks for back pain [id number] MAHENDRA Horn, [facility], OFFICE [address] [place] [address] 08/14/2018 14:07:05 08/15/2018 07:59:06 Backache 081764288 M54.9 improved with naproxen. did not try exercises. no radiation. no abd pain. no dysuria. will work on back and core strength, handouts given. if not improving in a few weeks would refer to PT [id number] Kathi Garrido PA-C , [facility], OFFICE [address] [place] [phone] 6 06/27/2019 13:32:15 06/27/2019 14:08:38 Pain in penis 891146844 N48.89 - normal exam today-If not improving over the weekend, call the office to follow up/conside r further testing-Ca n try icing the area for pain relief [id number] Teddy Cardoso PA-C , [facility], OFFICE [address] [place] [address] 6 10/17/2019 09:08:32 10/20/2019 10:57:49 Pain in penis 598744584 N48.89 Will do workup of urine. If normal, referral to . Reports burning which makes me what to rule out other potential infectious causes. Dysuria 11022402 R30.9 Will do workup of urine. If normal, referral to . Reports burning which makes me what to rule out other potential infectious causes. [id number] MD ISIAH Gregory, [facility], OFFICE [address] [place] [address] 6 06/23/2020 14:59:52 06/25/2020 13:56:36 Dysuria 96428240 R30.9 see urology. do ua Cx now. does not seem like STD or Herpes . prostate is large for age, but otherwise feels normal Pain in penis 549242402 N48.89 See urolol. Venereal d isease screening 752429613 Z11.3 [id number] MAHENDRA Horn, [facility], OFFICE [address] [place] [address] 6 08/26/2020 15:41:25 08/26/2020 16:18:55 Adult health examination 870656720 Z00.00 see Risk Assessment and Lifestyle Change Counseling section above - HCP: 07/18/17 Depression screening 171 354909 Z13.31 depression screening tool administer ed, entered into emr, scored and discussed, time greater than 7.5 minutes. negative Screening for alcohol abuse 958871882 Z13.39 negative Pain of ri ght shoulder joint 0445519177 3572942 M25.511 chronic. no improvemen t with PT. referred back to Dr. 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 Soto/jabari jarquin. Rx pentoxifyl line. some improvemen t. has follow up scheduled in 4 months or so [id number] Sina Alegre MD Sports Medicine, [facility] [address] [place] [address] 11/17/2020 10:52:37 11/18/2020 14:03:31 Shoulder pain 13321544 M25.511 Calvin is a 30-year-ol d male with right shoulder pain that I believe is due to impingemen t syndrome and rotator cuff tendinosis . I was able to personally review his MRI from 2018 [facility] ed no labral tear or rotator cuff tear. There was some edema of the acromion noted that this was only seen on coronal images I feel is likely artifactua l and is not the location of his discomfort on exam. I reviewed all this with him today as well as discussing treatment. He does feel physical therapy worked several years ago I did offer him a new referral which he declined. He will plan to return to his home physical therapy exercises. I have also given her prescripti on for topical diclofenac to use to see if this helps alleviate his symptoms. We discussed the possibilit y of a subacromia l injection if he has persistent pain. He will plan on follow-up with me in 6-8 weeks for reevaluati on if he continues to have discomfort . 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 - pt will schedule f/u with urology Pain in testicle 6329894 9 N50.819 - ER notes reviewed including labs/imagi ng- STD screening pending but is low risk- epididymit is etiology/p revention discussed with pt, all questions answered- continue abx and ibuprofen as prescribed - ER precaution s discussed, call as needed [id number] LUZMARIA Stevenson , [facility], OFFICE [address] [place] [address] 05/13/2021 10:15:49 05/16/2021 10:11:57 Pain in testicle 41870285 N50.819 - recurrent testicular symptoms to episode last month- UA negative, culture sent- pt interested in repeat tx for suspected epididymit is, explained benefits/r isks to this, pt would like to proceed at this time- encouraged f/u with his urologist, he will call if needing new referral Epididymitis 67842825 N4 5.1 [id number] Katelyn Leavitt NP , [facility], OFFICE [address] [place] [address] 05/31/2021 10:40:39 06/01/2021 15:31:48 Pain of left knee region 9133804542 92912 M25.562 r/t fall on ice 05/20. neg xray at [facility] ED 05/21. significan tly improved with rest and ibuprofen. okay to use ice or heat, whichever feels better, 20-30 minutes at a time as needed. Follow up if not continuing to resolve in a few weeks. could consider PT if pain persists Immunization advised 310 430546 Z71.9 needs covid booster. encourange d to schedule. please post vaccine records to your portal and we will put it in your chart [id number] DARRYL Terrell FP, [facility], OFFICE [address] [place] [address] 06/11/2021 15:15:55 06/14/2021 10:26:57 Epididymitis 62082302 N45.1 POC UA normalRece nt gonorrhea and chlamydia testing negativeRe cent scrotal ultrasound normalNo evidence of hydrocele on examWill treat with Bactrim for 10 daysDiscus sed following up with urologySho uld have CT imaging to assess for any anatomical abnormally - will discuss with PCP on Sunday. [id number] Katelyn Leavitt NP , [facility], OFFICE [address] [place] [address] 09/01/2021 15:33:34 09/01/2021 16:10:13 Adult health examination 353664448 Z00.00 - HCP: On file- tetanus due 2026- covid vaccines x2, booster encouraged - Hep C screening: discussed, ordered Depression screening 171 760695 Z13.31 depression screening tool administer ed, entered into emr, scored and discussed, time greater than 7.5 minutes. negative Screening for alcohol abuse 175721782 Z13.39 negative Active or passive immunization 295666833 Z23 Covid: Pt thinks moderna x2 no booster yet. encouraged Screening for disorder 505790847 Z11.59 Epididymitis 90068499 N4 5.1 levofloaxc in, meloxicam and prednisone prescribed by urology. Sx improved but not resolved. scheduled with urology for follow up in October. On wait list. will continue to call for a sooner appointmen t Health Concerns Section Related Observation LastModified by Organization Detai ls LastModified Time None Recorded Concern Status LastModified by Organization Details LastModified Time None Recorded Advance Directives Directive None Recorded Payers Encounter Date Sequence Insurance Name Policy Number Policy Harrington Covered Member ID Harrington Member ID Guarantor Name 04/12/2021 1 [facility] - DIRECT CONNECTORCARE TYPE I (HMO) [id number] Calvin Pickering [id number] Calvin Pickering 05/13/2021 1 [facility] - DIRECT CONNECTORCARE TYPE I (HMO) [id number] Calvin Pickering [id number] Calvin Pickering 05/31/2021 1 [facility] - DIRECT CONNECTORCARE TYPE I (HMO) [id number] Calvin Pickering [id number] Calvin Pickering 06/11/2021 1 [facility] - DIRECT CONNECTORCARE TYPE I (HMO) [id number] Calvin Pickering [id number] Calvin Pickering 09/01/2021 1 [facility] - DIRECT CONNECTORCARE TYPE I (HMO) [id number] Calvin Pickering [id number] Calvin Hagelstein Notes Date Note Type Note Provider Name and Address Organization Details Recorded Time 04/12/2021 text/html 04/12/2128 yo michele carrizales presenting for ER f/u. seen at [facility] ER yesterday for testicular pain, gradual x [...] has not made f/u yet LUZMARIA Stevenson [address] [place] [address], [phone], [facility] 04/12/2021 08:26:39 05/13/2021 text/html 05/13/2227 yo tc [...] male presenting for ER f/u. seen at [facility] ER yesterday for testicular pain, gradual x [...] has not made f/u yet LUZMARIA Stevenson [address] [place] [address], [phone], [facility] 05/13/2021 10:52:38 05/31/2021 text/html 05/31/21 30yo M presents for ER follow up visit for left knee pain - Was ice fishing on 05/20, fell forward and caught foot in sled fell on left knee. no twist- [facility] ED 05/21/21: left knee contusion r/t slip on ice 05/20. no fracture on xray. knee immobilizer declined- gettingmuch better- ibuprofen has helped- not hurting unless walking up stairs. then feeling it a little - no bruising- may notice trace swelling at this point Katelyn Leavitt, [employer] [address] [place], [address], [facility] 05/31/2021 11:08:37 06/11/2021 text/html He has been [...] is going to throw up. June Squires, [employer]PRES[employer]IVE [address] [place], [address], 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 had trouble making enough for a healthy diet lives with his correction GF Katelyn Leavitt NP [address] [place] [address], [place], [address], [facility] 09/01/2021 23:21:32
== END 2024-05-22 11:17 | disposition home or self-care (01) ==
PROVIDERS: PCP Nurse Practitioner Family; Visit Provider Urology
DX: N41.1 Chronic prostatitis (principal); N48.89 Other specified disorders of penis
CPT/HCPCS: 99214

== ENCOUNTER → 2024-05-22 10:16 | Outpatient (BNVA) | payer OTHER, SELFPAY | PROVIDERS: PCP Nurse Practitioner Family; Visit Provider Urology | DX: N41.1 Chronic prostatitis (principal); N48.89 Other specified disorders of penis | CPT/HCPCS: 99212 ==

== ENCOUNTER 2024-08-14 08:25 | Outpatient (AMB) | payer OTHER, SELFPAY ==
--- NOTE | 2024-08-14 08:26 | MHC.OFFVIS ---
Intake Visit Reasons: 4m/UA Intake Note: Patient is present for 4M/UA Urology Medication:NONE Antibiotic Allergy:NONE Blood Thinner:NONE Egg Caser Required: No Allergies No Known Allergies Allergy (Verified 08/14/24 08:27) HPI Comments Details: Calvin is a pleasant male. He is a patient of Dr. Haney. He is seen for the following urologic conditions - discomfort and pain with erection - chronic prostatitis Four week follow-up after recurrent treatment Did well with Augmentin UA today normal Will plan on suppression Augmentin for 90 days Does well with Indonesian yogurt 07/15 Prior pelvic floor examination - Has pain on left pelvic sidewall consistent with chronic pelvic pain syndrome Discussed recent Microgen - has new collection of speciation different to previously - recently prescribed Augmentin 05/27/24 - Streptococcus, Staphylococcus sensitive to Augmentin 12/14 - Klebsiella + Routella - sensitive to Levaquin Trial retreatment with 30 days 10/14 low load Staphylococcus +fungus. 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 Cognitive needs: No Hearing needs: No Vision needs: No Review of Systems Const Denies chills and Denies fever(s) Card Reports no additional complaints and Denies syncope Resp Denies cough GI Denies abdominal pain and Denies heartburn Reports as per HPI and Denies change in libido Neuro Denies syncope Psych Denies change in libido Endo Denies change in libido Physical Exam Const General: cooperative, healthy appearing, comfortable and no acute distress Orientation/consciousness: patient oriented x3 HEENT Face and sinus: Yes normal facial exam Mouth: moist mucous membranes Neck Neck: Yes normal visual inspection, Yes full ROM and Yes trachea midline Chest Chest palpation & inspection: normal inspection of the chest Resp Effort & Inspection: normal respiratory effort, able to speak in complete sentences and no respiratory distress GI Inspection: Yes normal to inspection Back/Spine/Pelvis Cervical Spine: normal cervical lordosis Thoracic/Lumbar Spine: thoracic and lumbar spine normal to inspection Skin General skin exam: no rashes or lesions noted Neuro General: patient oriented x3, gait normal, tone normal and moves all extremities Extrem General: Yes normal to inspection and Yes capillary refill normal Results AMB Urinalysis, Automated UA Leukoctes 0 Myah/uL Last Edit by CORINA Ching on 08/14/24 08:38 UA Nitrite Negative Last Edit by Jennifer Baltazar CCM on 08/14/24 08:38 UA Urobilinogen 0.2 mg/dL Last Edit by CORINA Ching on 08/14/24 08:38 UA Protein 0 mg/dL Last Edit by Jennifer Baltazar CCM on 08/14/24 08:38 UA pH 6.0 Last Edit by Jennifer Baltazar CCM on 08/14/24 08:38 UA Blood 0 Gus/uL Last Edit by CORINA Ching on 08/14/24 08:38 UA Specific [place] 1.015 Last Edit by CORINA Ching on 08/14/24 08:38 UA Ketone Negative Last Edit by CORINA Ching on 08/14/24 08:38 UA Bilirubin 0 mg/dL Last Edit by CORINA Ching on 08/14/24 08:38 UA Glucose 0 mg/dL Last Edit by Jennifer Baltazar [facility] on 08/14/24 08:38 Assessment & Plan Assessment & Plan (1) Chronic prostatitis: Code(s): N41.1 - Chronic prostatitis Category: Medical Plan 4 month follow-up office Orders: Orders AMB Urinalysis Automated Today Z13.9 - Encounter for screening, unspecified Patient Instructions: This note is constructed using voice recognition software. While every effort has been made to ensure accuracy mine car mechanic errors may have been included. Imaging studies, laboratory and physical exam results were discussed and reviewed in detail. No major barriers to patient understanding were identified. An opportunity to ask questions regarding the treatment plan was provided. All questions were answered. The patient expressed understanding and agreement with the above treatment plan. The patient is aware they should contact our office by phone for worsening of their current condition or the appearance of new urologic symptoms. Compliance is encouraged with any medications and followup testing that is ordered. It is a privilege to participate in the urologic care of your patient. If you have any questions or concerns regarding treatment for the above conditions, or other urologic issues, please do not hesitate to contact me. The office telephone contact is [phone]. Sincerely, Dr Pradip Soto MD, [facility] - Urology Compassionate Specialist Care for the Genitourinary System Coding Level of Care Code Est Pt Level 3 (16539) Complex EM visit Add On G2211 Diagnoses Chronic prostatitis N41.1
== END 2024-08-14 08:52 | disposition home or self-care (01) ==
LOC: HO.HUSH 08:25
PROVIDERS: PCP Nurse Practitioner Family; Visit Provider Urology
DX: N41.1 Chronic prostatitis (principal); Z13.9 Encounter for screening, unspecified
CPT/HCPCS: 99213; G2211

== ENCOUNTER → 2024-08-14 08:25 | Outpatient (BNVA) | payer OTHER, SELFPAY | PROVIDERS: PCP Nurse Practitioner Family; Visit Provider Urology | DX: N41.1 Chronic prostatitis (principal); N48.89 Other specified disorders of penis | CPT/HCPCS: 81003; 99212 ==

== ENCOUNTER 2024-09-18 10:05 | Outpatient (AMB) | payer OTHER, SELFPAY ==
--- NOTE | 2024-09-18 10:15 | MHC.PC.OV ---
Vital Signs 09/18/24 10:17 Height 6 ft Weight 176 lb BMI 23.9 BP 112/82 Blood Pressure Location Lt brachial Position Sitting Respiration 14 Pulse 64 Pulse Source Pulse Oximeter Temp 97.9 F Temp Source Oral Pulse Oximetry (%) 98 Oxygen Delivery Method Room Air Intake Visit Reasons: left jaw lump Intake Note: Lump left side of jaw. 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 He states that when the lump 1st occurred he thought it was maybe an ingrown hair. He states it is just under his chin and in his ge. It was not tender and there does not appear to be any associated sick symptoms. No sore throat, difficulty swallowing, fever, chills or night sweats. No ear pain or fatigue. He did go to the dentist last week and states that they did not noticed the lump. He made this appointment because when he turns his head he states you can now see the lump. The last couple weeks it has increased in size. He has not seen his PCP since 2022 for routine health maintenance. He is currently following with urology for chronic prostatitis. On Augmentin daily. 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 1. Little interest or pleasure in doing things: not at all 2. Feeling down, depressed, or hopeless: not at all 3. Trouble falling or staying asleep, or sleeping too much: not at all 4. Feeling tired or having little energy: not at all 5. Poor appetite or overeating: not at all 6. Feeling bad about yourself - or that you are a failure or have let yourself or your family down: not at all 7. Trouble concentrating on things, such as reading the newspaper or watching television: not at all 8. Moving or speaking so slowly that other people could have noticed. Or the opposite - being so fidgety or restless that you have been moving around a lot more than usual: not at all 9. Thoughts that you would be better off or of hurting yourself in some way: not at all Total score: 0 Depression Screening Interpretation: Negative Depression Screening Done: Yes 06966 - PHQ-9 Billing: Yes Source: Developed by Drs. Tod Berman, Keysha Yoder, Cj Miller and colleagues, with an educational blake from [employer]. Thrive Questionnaire Date Thrive assessed: 09/18/24 I am a: Patient What is your living situation today?: I have a steady place to live Within the past 12 months, did the food you bought not last and you didn't have the money to get more?: Never true Within the past 12 months, did you worry whether your food would run out before you got money to buy more?: Never true Do you have trouble paying for medicines?: No Do you have trouble getting transportation to medical appointments?: No Do you have trouble paying your heating and electricity bill?: No Do you have trouble taking care of your child, family member or friend?: No Do you have trouble with day-to-day activities such as bathing, preparing meals, shopping, managing finances, etc.?: No Are you currently unemployed and looking for a job?: No Are you interested in more education?: No Please select the resources that you would like help with: None Currently or been in a relationship where the following occur: No concerns reported THRIVE Score: 0 AUDIT C Alcohol Use Questionnaire (AUDIT-C) 1. How often do you have a drink containing alcohol?: Monthly or less 2. How many drinks containing alcohol do you have on a typical day when you are drinking?: 1 or 2 3. How often do you have six or more drinks on one occasion?: Never Total Score: 1 Score Reviewed/Action Taken: Yes SITA-7 AMB Questionnaire SITA-7 Date STIA - 7 assessed: 09/18/24 Feeling nervous, anxious, or on edge: 0 = Not at all Not being able to stop or control worryin = Not at all Worrying too much about different things: 0 = Not at all Trouble relaxin = Not at all Being so restless that it is hard to sit still: 0 = Not at all Becoming easily annoyed or irritable: 0 = Not at all Feeling afraid as if something awful might happen: 0 = Not at all Total SITA-7 score (0-4 normal; 5-9 mild; 10-14 moderate; 15-21 severe): 0 Source: Developed by Drs. Tod Berman, Keysha Yoder, Cj Miller and colleagues, with an educational blake from [employer]. SITA-7 Assessment Billing SITA-7 Assessment Tool: SITA-7 Assessment 50089 Physical exam (Primary Care) Vital Signs: Last Vital Signs Temp 97.9 F 09/18/24 10:17 Pulse 64 09/18/24 10:17 Resp 14 09/18/24 10:17 BP 112/82 09/18/24 10:17 Pulse Ox 98 09/18/24 10:17 Oxygen Delivery Method Room Air 09/18/24 10:17 BMI result Body Mass Index 23.9 Tobacco/Smoking Status: Tobacco use Status Tobacco use date assessed 09/18/24 09/18/24 10:20 Patient Tobacco Use Status Never used Tobacco 09/18/24 10:20 e-Cigarette/Vaping Use Never Used 09/18/24 10:20 PHQ-9: PHQ-9 Score PHQ-9: Total score 0 09/18/24 10:20 Depression Screening Interpretation: Negative Thrive Assessment: Date of Thrive Assessment Date Thrive assessed 09/18/24 09/18/24 10:20 Currently or been in a relationship where the following occur: No concerns reported Const Orientation/consciousness: patient oriented x3 HENMT Ears: hearing grossly normal bilaterally and TM's normal bilaterally Face and sinus: Yes normal facial exam and Yes sinuses nontender Mouth: Normal oral and palatal mucosa present Teeth and gingiva: dentition normal Throat: Yes posterior oropharynx normal Neck Other: There is a slightly mobile, rubbery, approximately half a cm by half a cm subcutaneous lump noted under left mandible Thyroid: Thyroid normal Lymphatic: no lymphadenopathy noted Resp Auscultation: clear to auscultation bilaterally Cardio Rate: regular rate Rhythm: regular rhythm Heart sounds: S1 normal heart sound present and S2 normal heart sound present GI Inspection: Yes normal to inspection Palpation (GI): Soft to palpation and Other GI palpation findings present (nontender, no cva tenderness) Auscultation: normoactive bowel sounds Rectal Exam - Male: Yes deferred Skin General skin exam: no rashes or lesions noted Neuro General: patient oriented x3, gait normal and no focal motor deficits Coding Level of Care Code Est Pt Level 4 (56532) Complex EM visit Add On G2211 Diagnoses Lump on neck R22.1 Additional Codes SITA-7 Assessment Billing - SITA-7 Assessment Tool: SITA-7 Assessment 24696 ([id number]) PHQ-9 - 15894 - PHQ-9 Billing: Yes ([id number]) Assessment & Plan Assessment & Plan (1) Lump on neck: Code(s): R22.1 - Localized swelling, mass and lump, neck Category: Medical Plan: u/s ordered Labs ordered. We will follow up pending test results Discussed with patient that it does feel more cystic however we will follow up pending test results. He would like this removed. Referral to General surgery. Orders: Orders US soft tiss head and/or neck Today R22.1 - Localized swelling, mass and lump, neck Complete Blood Count Auto Diff Today R22.1 - Localized swelling, mass and lump, neck Comprehensive Met. Panel Today R22.1 - Localized swelling, mass and lump, neck Referrals General Surgery Referral R22.1 - Localized swelling, mass and lump, neck
[2024-09-18 10:17] VITALS: BP 112/82; PULSE 64; RESP 14; TEMP 36.6; O2SAT 98; BMI 23.9
== END 2024-09-18 10:37 | disposition home or self-care (01) ==
LOC: HO.HMCFM 10:05
PROVIDERS: PCP Nurse Practitioner Family; Visit Provider Physician Assistant
DX: R22.1 Localized swelling, mass and lump, neck (principal)

== ENCOUNTER → 2024-09-18 10:05 | Outpatient (BNVA) | payer OTHER, SELFPAY | PROVIDERS: PCP Nurse Practitioner Family; Visit Provider Physician Assistant | DX: Z13.89 Encounter for screening for other disorder (principal) | CPT/HCPCS: 96127; 99212 ==

== ENCOUNTER 2024-09-18 10:38 | Outpatient (REF) | payer OTHER, SELFPAY ==
[2024-09-18 11:55] LABS: MANUAL DIFF FLAG NO
[2024-09-18 12:08] LABS: Basophils Percent Auto 0.4 % (0-2); Eosinophils Absolute Auto 0.3 X10*3/uL (0.0-0.4); Eosinophils Percent Auto 5.5 % (0-4); Hematocrit 43.2 % (42.0-52.0); Hemoglobin 14.9 g/dl (14.0-18.0); Imm Gran Abs Auto 0.03 X10*3/uL (0.00-0.03); Imm Gran Pct Auto 0.6 % (0.0-0.4); Lymphocytes Absolute Auto 2.2 X10*3/uL (1.2-4.9); Mean Corpuscular HGB Conc 34.5 g/dl (31.0-36.0); Mean Corpuscular Hemoglobin 31.3 pg (27.0-33.0); Mean Corpuscular Volume 90.8 fL (80.0-98.0); Mean Platelet Volume 9.3 fL (9.4-12.4); Monocytes Absolute Auto 0.4 X10*3/uL (0.1-1.2); Monocytes Percent Auto 7.5 % (2-11); Neutrophils Absolute Auto 2.4 x10*3/uL (2.0-8.3); Platelet Count 195 X10*3/uL (160-400); Red Blood Count 4.76 X10*6/uL (4.60-5.80); Red Cell Distribution Width 12.4 % (11.0-16.0); White Blood Count 5.3 X10*3/uL (4.8-10.8)
[2024-09-18 13:06] LABS: Albumin Level 4.9 g/dL (3.5-5.0); Alkaline Phosphatase 61 U/L (39-117); Anion Gap 10 (12-20); Aspartate Amino Transferase 28 U/L (5-37); Bilirubin Total 0.9 mg/dL (0.0-1.0); Blood Urea Nitrogen 15 mg/dL (9-16); Calcium 9.8 mg/dL (8.4-10.2); Carbon Dioxide 28 mmol/L (22-29); Chloride 108 mmol/L (96-108); Estimated Glomerular Filt Rate > 60; Glucose Random 87 mg/dL (60-115); Potassium 3.9 mmol/L (3.3-5.1); Sodium 142 mmol/L (135-145); Total Protein 7.4 g/dL (6.5-8.0)
[2024-09-18 13:19] LABS: Alanine Aminotransferase 40 U/L (0-40)
== END 2024-09-18 10:39 | disposition home or self-care (01) ==
LOC: HO.WFDLDS 10:38
PROVIDERS: Visit Provider Physician Assistant
DX: R22.1 Localized swelling, mass and lump, neck (principal)
CPT/HCPCS: 36415; 80053; 85025; 96127; 99212

== ENCOUNTER 2024-10-21 14:18 | Outpatient (REF) | payer OTHER, SELFPAY ==
--- NOTE | ~2024-10-21 | US_ITS ---
EXAMINATION: US SOFT TISSUE HEAD AND NECK LIMITED. CLINICAL INFORMATION: Lump in the left side of the jaw. COMPARISON: None available. TECHNIQUE: Linear transducer delaney-scale and color Doppler examination with attention to the left upper neck submandibular region. FINDINGS: There is a nonspecific 1.2 cm lymph node with a fatty hilum. No gross fluid collections in the region of concern. No gross masses. US/US soft tiss head and/or neck IMPRESSION: Nonspecific prominent 1.2 cm lymph node, left submandibular compartment.. Electronically signed by: Bud Ruiz MD 10/21/2024 02:38 PM EDT
--- OUTSIDE RECORDS SUMMARY | 2024-10-21 15:29 | XMS_ITS | Data Portability ---
[facility] Organization [facility], , [facility] Address [address] [place] [address] Care Team Providers Care Glass Cutter Name Role Phone PRASANNA LEAVITTNAH Primary Care Provider [phone] Assessment Encounter Date Assessment Date Assessment LastModified [...] is my assessment and plan for this patient s care today. [email or web address] Not available 05/31/2021 11:07:39 Plan of Treatment Reminders Order Date Submit Date Provider Last Modified By Organization Details Last Modified Time Details Appointments None recorded. Lab hepatitis C virus Ab, serum 2021 022 [facility], [address] [place] [address], [address], 2 18:35:53 urinalysis, dipstick 2021 022 [email or web address] [facility], [address] [place], [address], 2 16:08:44 urinalysis, dipstick 2021 022 [email or web address] [facility], [address] [place], [address], 2 10:46:37 culture, urine 2021 [facility], [address] [facility], [place], [address], 01:21:34 Referral None recorded. Procedures None recorded. Surgeries None recorded. Imaging None recorded. Medication Orders sulfamethox azole 800 mg-trimetho prim 160 mg tablet 2021 [employer] [id number], [address], [place], [id number], 18:15:17 levofloxaci n 500 mg tablet 2021 [email or web address] [facility] #[id number], [address], [place], [id number], 16:00:22 Patient TargetsNo targets recorded. Patient Instructions Encounter Date Encounter Id Patient Instructions Last Modified By Organization Details Last Modified Time 04/12/2021 [id number] violet ascencio se education Not available 04/12/2021 08:25:52 epididymitis and orchitis: care instructions Not available 04/12/2021 08:25:52 05/31/2021 [id number] [place] in [place] as scheduled [email or web address] Not available 05/31/2021 11:07:43 06/11/2021 [id number] After a discussi on of treatment options, which included consideration of best practices, patient preferences, and the patient s individual lifestyle and treatment goals, as well as consideration and attempted mitigation of any barriers to meeting the patient s goals, the following treatment plan and objectives were adopted: -Good to see you today! -Take your medications as prescribed, and please let us know if you have any unwanted or unexpected side effects. -Please review the patient education provided to you today. -Keep your follow-up appointments as scheduled. -Please let us know if you are worse in any way, we are preparation plant repairer 24 hours a day, 7 days a week by phone: [phone]. -Please let us know if you have any further questions or concerns. You have been prescribed an antibiotic which can help to cure a bacterial infection they do not help with viral infections. Sometimes, you will get better despite the antibiotic, not because of it. ALWAYS take all of an antibiotic, as prescribed, unless instructed not to by your healthcare provider. When taking antibiotics, your body s natural bacteria may be disturbed. This can cause diarrhea, gas or cramping. In women, it can cause a yeast infection. To prevent this, it is helpful to take a probiotic supplement, such as Culturelle or yogurt with live and active cultures. As with any medication, call if you develop a rash or fever. [email or web address] Not available 06/13/2021 14:47:23 09/01/2021 [id number] Well Visit, Ages 18 to 65: Care Instructions [email or web address] Not available 09/01/2021 16:09:31 After a discussi on of treatment options, which included consideration of best practices, patient preferences, and the patient s individual lifestyle and treatment goals, as well as consideration and attempted mitigation of any barriers to meeting the patient s goals, the following treatment plan and [...] Abnormal Flag Note LastModifiedBy Organization Detail LastModifiedTime 04/11/2004/11/2021 URINA LYSIS W/REF CHEMA URINE CULTU RE color YELLOW yellow Not Available [facility] [address] [place], [address], 04/11/2021 13:58:33 04/11/20 21 04/11/2021 URINA LYSIS W/REF CHEMA URINE CULTU RE clarity CLEAR Not Available [facility] [address] [place], [address], 04/11/2021 13:58:33 04/11/20 21 04/11/2021 URINA LYSIS W/REF CHEMA URINE CULTU RE glucose NEGATI VE negati ve Not Available [facility] [address] [place], [address], 04/11/2021 13:58:33 04/11/20 21 04/11/2021 URINA LYSIS W/REF CHEMA URINE CULTU RE bili NEGATI VE negati ve Not Available [facility] [address] [place], [address], 04/11/2021 13:58:33 04/11/20 21 04/11/2021 URINA LYSIS W/REF CHEMA URINE CULTU RE ketones NEGATI VE negati ve Not Available [facility] [address] [place], [address], 04/11/2021 13:58:33 04/11/20 21 04/11/2021 URINA LYSIS W/REF CHEMA URINE CULTU RE specific gravity 1.025 1.005- 1.030 Not Available [facility] [address] [place], [address], 04/11/2021 13:58:33 04/11/20 21 04/11/2021 URINA LYSIS W/REF CHEMA URINE CULTU RE blood NEGATI VE negati ve Not Available [facility] [address] [place], [address], 04/11/2021 13:58:33 04/11/20 21 04/11/2021 URINA LYSIS W/REF CHEMA URINE CULTU RE pH 6.0 5.0-8. 0 Not Available [facility] [address] [place], [address], 04/11/2021 13:58:33 04/11/20 21 04/11/2021 URINA LYSIS W/REF CHEMA URINE CULTU RE protein NEGATI VE negati ve Not Available [facility] [address] [place], [address], 04/11/2021 13:58:33 04/11/20 21 04/11/2021 URINA LYSIS W/REF CHEMA URINE CULTU RE nitrite NEGATI VE negati ve Not Available [facility] [address] [place], [address], 04/11/2021 13:58:33 04/11/20 21 04/11/2021 URINA LYSIS W/REF CHEMA URINE CULTU RE leukocyte esterase, ur NEGATI VE negati ve Not Available [facility] [address] [place], [address], 04/11/2021 13:58:33 04/11/20 21 04/12/2021 CHLAM YDIA TRACH OMATI S AND NEISS ERIA GONOR RHOEA E NUCLE IC ACID DETEC TION chlamydia trachomatis NOT DETECT ED not detect ed Not Available [facility] [address] [place], [address], 04/12/2021 09:57:05 04/11/20 21 04/12/2021 CHLAM YDIA TRACH OMATI S AND NEISS ERIA GONOR RHOEA E NUCLE IC ACID DETEC TION neiseria gonorrhoeae NOT DETECT ED not detect ed Not Available [facility] [address] [place], [address], 04/12/2021 09:57:05 04/11/20 21 04/12/2021 CHLAM YDIA TRACH OMATI S AND NEISS ERIA GONOR RHOEA E NUCLE IC ACID DETEC TION specimen type URINE Not Available [facility] [address] [place], [address], 04/12/2021 09:57:05 05/13/19 22 05/13/2021 POC UA glu UA NEGATI VE Not Available [facility] [address] [place], [address], 05/13/2021 10:46:32 05/13/19 22 05/13/2021 POC UA clarity UA CLEAR Not Available [facility] [address] [place] [address], [address], 05/13/2021 10:46:32 05/13/19 22 05/13/2021 POC UA uro UA 0.2000 Not Available [facility] [address] [place] [address], [address], 05/13/2021 10:46:32 05/13/19 22 05/13/2021 POC UA ket UA NEGATI VE Not Available [facility] [address] [place] [address], [address], 05/13/2021 10:46:32 05/13/19 22 05/13/2021 POC UA pro UA NEGATI VE Not Available [facility] [address] [place] [address], [address], 05/13/2021 10:46:32 05/13/19 22 05/13/2021 POC UA nit UA NEGATI VE Not Available [facility] [address] [place] [address], [address], 05/13/2021 10:46:32 05/13/19 22 05/13/2021 POC UA manjit UA NEGATI VE Not Available [facility] [address] [place] [address], [address], 05/13/2021 10:46:32 05/13/19 22 05/13/2021 POC UA pH UA 5.5000 Not Available [facility] [address] [place] [address], [address], 05/13/2021 10:46:32 05/13/19 22 05/13/2021 POC UA SG UA 1.0250 Not Available [facility] [address] [place] [address], [address], 05/13/2021 10:46:32 05/13/19 22 05/13/2021 POC UA color UA YELLOW Not Available [facility] [address] [place] [address], [address], 05/13/2021 10:46:32 05/13/19 22 05/13/2021 POC UA blo UA NEGATI VE Not Available [facility] [address] [place] [address], [address], 05/13/2021 10:46:32 05/13/19 22 05/13/2021 POC UA idris UA NEGATI VE Not Available [facility] [address] [place] [address], [address], 05/13/2021 10:46:32 05/13/19 22 05/15/2021 CULTU RE, URINE , ROUTI NE culture, urine, routine CULTU RE, URINE , ROUTI NE Micro Numbe r: [id number] Test Statu s: Final Speci men Sourc e: Urine Speci men Quali ty: Adequ ate Resul t: No Growt h Not Available [facility] [address], [address], 05/15/2021 01:21:34 06/11/19 22 06/11/2021 POC UA glu UA NEGATI VE Not Available [facility] [address] [place] [address], [address], 06/11/2021 15:33:53 06/11/19 22 06/11/2021 POC UA clarity UA CLEAR Not Available [facility] [address] [place] [address], [address], 06/11/2021 15:33:53 06/11/19 22 06/11/2021 POC UA uro UA 0.2000 Not Available [facility] [address] [place] [address], [address], 06/11/2021 15:33:53 06/11/19 22 06/11/2021 POC UA ket UA NEGATI VE Not Available [facility] [address] [place] [address], [address], 06/11/2021 15:33:53 06/11/19 22 06/11/2021 POC UA pro UA NEGATI VE Not Available [facility] [address] [place] [address], [address], 06/11/2021 15:33:53 06/11/19 22 06/11/2021 POC UA nit UA NEGATI VE Not Available [facility] [address] [place] [address], [address], 06/11/2021 15:33:53 06/11/19 22 06/11/2021 POC UA manjit UA NEGATI VE Not Available [facility] [address] [place] [address], [address], 06/11/2021 15:33:53 06/11/19 22 06/11/2021 POC UA pH UA 6.0000 Not Available [facility] [address] [place] [address], [address], 06/11/2021 15:33:53 06/11/19 22 06/11/2021 POC UA SG UA 1.0250 Not Available [facility] [address] [place] [address], [address], 06/11/2021 15:33:53 06/11/19 22 06/11/2021 POC UA color UA YELLOW Not Available [facility] [address] [place] [address], [address], 06/11/2021 15:33:53 06/11/19 22 06/11/2021 POC UA blo UA NEGATI VE Not Available [facility] [address] [place] [address], [address], 06/11/2021 15:33:53 06/11/19 22 06/11/2021 POC UA idris UA NEGATI VE Not Available [facility] [address] [place] [address], [address], 06/11/2021 15:33:53 09/03/19 22 09/05/2021 HEPAT ITIS C AB W/REF L TO HCV RNA, QN, PCR hepatitis C antibody NON-RE ACTIVE non-re active normal Not Available [facility] [place] [facility] [address], [address], 09/05/2021 18:35:52 09/03/1909/05/2021 HEPAT ITIS C AB [...] a test for HCV RNA (test code 96643 ) is [facility]. For addit ional infor cari duke e refer to http: //[facility] stdia gnost ics.c om/fa q/FAQ 22v1 (This link is being provi ded for infor cari barbosa/ educa nabil l purpo ses only. ) Not Available [facility] [place] [facility] [address], [place], [address], 09/05/2021 18:35:52 02/19/2002/18/2022 CBC AND DIFFE RENTI AL WBC 3.55 K/uL 4.00-1 1.00 low Not Available [facility] [address] [place] [address], [address], 02/18/2022 10:49:30 02/19/20 22 02/18/2022 CBC AND DIFFE RENTI AL RBC 4.55 M/uL 4.48-5 .88 Not Available [facility] [address] [place], [address], 02/18/2022 10:49:30 02/19/20 22 02/18/2022 CBC AND DIFFE RENTI AL HGB 14.8 g/dL 13.4-1 7.5 Not Available [facility] [address] [place], [address], 02/18/2022 10:49:30 02/19/20 22 02/18/2022 CBC AND DIFFE RENTI AL HCT 41.6 % 38.0-5 1.0 Not Available [facility] [address] [place], [address], 02/18/2022 10:49:30 02/19/20 22 02/18/2022 CBC AND DIFFE RENTI AL plt 184 K/uL 140-43 0 Not Available [facility] [address] [place], [address], 02/18/2022 10:49:30 02/19/20 22 02/18/2022 CBC AND DIFFE RENTI AL MCV 91.4 fL 78.0-9 7.0 Not Available [facility] [address] [place], [address], 02/18/2022 10:49:30 02/19/20 22 02/18/2022 CBC AND DIFFE RENTI AL MCH 32.5 pg 25.0-3 3.0 Not Available [facility] [address] [place], [address], 02/18/2022 10:49:30 02/19/20 22 02/18/2022 CBC AND DIFFE RENTI AL MCHC 35.6 g/dL 32.0-3 6.0 Not Available [facility] [address] [place], [address], 02/18/2022 10:49:30 02/19/20 22 02/18/2022 CBC AND DIFFE RENTI AL RDW 12.1 % 11.0-1 5.0 Not Available [facility] [address] [place], [address], 02/18/2022 10:49:30 02/19/20 22 02/18/2022 CBC AND DIFFE RENTI AL MPV 9.3 fL 8.4-12 .8 Not Available [facility] [address] [place], [address], 02/18/2022 10:49:30 02/19/20 22 02/18/2022 CBC AND DIFFE RENTI AL diff method Auto Not Available [facility] [address] [place], [address], 02/18/2022 10:49:30 02/19/20 22 02/18/2022 CBC AND DIFFE RENTI AL neuts 44.8 % 43.0-7 5.0 Not Available [facility] [address] [place], [address], 02/18/2022 10:49:30 02/19/20 22 02/18/2022 CBC AND DIFFE RENTI AL lymphs 42.5 % 18.2-4 7.4 Not Available [facility] [address] [place], [address], 02/18/2022 10:49:30 02/19/20 22 02/18/2022 CBC AND DIFFE RENTI AL monos 8.5 % 4.00-1 1.00 Not Available [facility] [address] [place], [address], 02/18/2022 10:49:30 02/19/20 22 02/18/2022 CBC AND DIFFE RENTI AL eos 3.1 % 0.0-8. 0 Not Available [facility] [address] [place], [address], 02/18/2022 10:49:30 02/19/20 22 02/18/2022 CBC AND DIFFE RENTI AL basos 0.8 % 0.0-2. 0 Not Available [facility] [address] [place], [address], 02/18/2022 10:49:30 02/19/20 22 02/18/2022 CBC AND DIFFE RENTI AL granulocytes , immature (%) 0.3 % 0.0-0. 9 Not Available [facility] [address] [place], [address], 02/18/2022 10:49:30 02/19/20 22 02/18/2022 CBC AND DIFFE RENTI AL absolute neuts 1.59 K/uL 1.80-7 .70 low Not Available [facility] [address] [place], [address], 02/18/2022 10:49:30 02/19/20 22 02/18/2022 CBC AND DIFFE RENTI AL absolute lymphs 1.51 K/uL 1.00-3 .10 Not Available [facility] [address] [place], [address], 02/18/2022 10:49:30 02/19/20 22 02/18/2022 CBC AND DIFFE RENTI AL absolute monos 0.30 K/uL 0.20-0 .80 Not Available [facility] [address] [place], [address], 02/18/2022 10:49:30 02/19/20 22 02/18/2022 CBC AND DIFFE RENTI AL absolute eos 0.11 K/uL 0.00-0 .80 Not Available [facility] [address] [place], [address], 02/18/2022 10:49:30 02/19/20 22 02/18/2022 CBC AND DIFFE RENTI AL absolute basos 0.03 K/uL 0.00-0 .09 Not Available [facility] [address] [place], [address], 02/18/2022 10:49:30 02/19/20 22 02/18/2022 CBC AND DIFFE RENTI AL granulocytes , immature 0.01 K/uL 0.00-0 .05 Not Available [facility] [address] [place], [address], 02/18/2022 10:49:30 02/19/20 22 02/18/2022 BASIC METAB OLIC PANEL sodium 137 mmol/ L 133-14 6 Not Available [facility] [address] [place], [address], 02/18/2022 11:10:32 02/19/20 22 02/18/2022 BASIC METAB OLIC PANEL chloride 101 mmol/ L 96-108 Not Available [facility] [address] [place], [address], 02/18/2022 11:10:32 02/19/20 22 02/18/2022 BASIC METAB OLIC PANEL potassium 5.0 mmol/ L 3.3-5. 1 Not Available [facility] [address] [place], [address], 02/18/2022 11:10:32 02/19/20 22 02/18/2022 BASIC METAB OLIC PANEL CO2 27 mmol/ L 21-35 Not Available [facility] [address] [place], [address], 02/18/2022 11:10:32 02/19/20 22 02/18/2022 BASIC METAB OLIC PANEL BUN 14 mg/dL 6-19 Not Available [facility] [address] [place], [address], 02/18/2022 11:10:32 02/19/20 22 02/18/2022 BASIC METAB OLIC PANEL creatinine 1.10 mg/dL 0.5-1. 5 Not Available [facility] [address] [place], [address], 02/18/2022 11:10:32 02/19/20 22 02/18/2022 BASIC METAB OLIC PANEL glucose 93 mg/dL 70-99 Not Available [facility] [address] [place], [address], 02/18/2022 11:10:32 02/19/20 22 02/18/2022 BASIC METAB OLIC PANEL calcium 9.7 mg/dL 8.4-10 .3 Not Available [facility] [address] [place], [address], 02/18/2022 11:10:32 02/19/20 22 02/18/2022 BASIC METAB OLIC PANEL eGFR 93 mL/mi n/1.7 3m2 >59 Estim ated glome rular filtr ation rate calcu lated using the CKD-E PI refit equat ion. Not Available [facility] [address] [place], [address], 02/18/2022 11:10:32 02/19/20 22 02/18/2022 BASIC METAB OLIC PANEL anion gap 14 mmol/ L 10-20 Not Available [facility] [address] [place], [address], 02/18/2022 11:10:32 02/19/20 22 02/18/2022 C-YUNG CTIVE PROTE IN C reactive protein <3.0 mg/L 0.0-4. 0 Not Available [facility] [address] [place], [address], 02/18/2022 11:15:15 02/19/20 22 02/18/2022 URINA LYSIS W/REF CHEMA URINE CULTU RE color Yellow yellow Not Available [facility] [address] [place], [address], 02/18/2022 11:36:42 02/19/20 22 02/18/2022 URINA LYSIS W/REF CHEMA URINE CULTU RE clarity Clear Not Available [facility] [address] [place], [address], 02/18/2022 11:36:42 02/19/20 22 02/18/2022 URINA LYSIS W/REF CHEMA URINE CULTU RE glucose Negati ve negati ve Not Available [facility] [address] [place], [address], 02/18/2022 11:36:42 02/19/20 22 02/18/2022 URINA LYSIS W/REF CHEMA URINE CULTU RE bili Negati ve negati ve Not Available [facility] [address] [place], [address], 02/18/2022 11:36:42 02/19/20 22 02/18/2022 URINA LYSIS W/REF HCEMA URINE CULTU RE ketones Negati ve negati ve Not Available [facility] [address] [place], [address], 02/18/2022 11:36:42 02/19/20 22 02/18/2022 URINA LYSIS W/REF CHEMA URINE CULTU RE specific gravity 1.015 1.005- 1.030 Not Available [facility] [address] [place], [address], 02/18/2022 11:36:42 02/19/20 22 02/18/2022 URINA LYSIS W/REF CHEMA URINE CULTU RE blood Negati ve negati ve Not Available [facility] [address] [place], [address], 02/18/2022 11:36:42 02/19/20 22 02/18/2022 URINA LYSIS W/REF CHEMA URINE CULTU RE pH 6.0 5.0-8. 0 Not Available [facility] [address] [place], [address], 02/18/2022 11:36:42 02/19/20 22 02/18/2022 URINA LYSIS W/REF CHEMA URINE CULTU RE protein Negati ve negati ve Not Available [facility] [address] [place], [address], 02/18/2022 11:36:42 02/19/20 22 02/18/2022 URINA LYSIS W/REF CHEMA URINE CULTU RE nitrite Negati ve negati ve Not Available [facility] [address] [place], [address], 02/18/2022 11:36:42 02/19/20 22 02/18/2022 URINA LYSIS W/REF HCEMA URINE CULTU RE leukocyte esterase, ur Negati ve negati ve Not Available [facility] [address] [place], [address], 02/18/2022 11:36:42 02/19/20 22 02/18/2022 COVID JYOTI SOLITARIO RESPI RATOR Y VIRAL ORDER (PRO) test ordered Rapid COVID has been ordere d Not Available [facility] [address] [place], [address], 02/18/2022 14:31:54 02/19/20 22 02/18/2022 COVID JYOTI SOLITARIO RESPI RATOR Y VIRAL ORDER (PRO) specimen source/descr iption NASAL Not Available [facility] [address] [place], [address], 02/18/2022 14:31:54 02/19/20 22 02/18/2022 COVID JYOTI [...] 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 Not Available [facility] [address] [place], [address], 02/18/2022 14:31:54 04/11/20 21 04/11/2021 US, scrot [...] appear wnl Flow seen bilat KATELYN arroyo [facility] [address] [place], [address], 04/11/2021 22:07:52 05/21/19 22 05/21/2021 xr knee [...] + visibl e swelli ng KATELYN LEAVITT [facility] [address] [place] [address], [address], 05/21/2021 09:29:23 02/19/2002/18/2022 CT pelvi s (bony [...] Sherif Montiel MD Final result KATELYN LEAVITT [facility] [address] [place] [address], [address], 02/19/2022 19:56:28 Result Notes None recorded. 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 Richard [facility]) LUZMARIA Stevenson [address] [place], [address], [facility] [place] 10:33:44 Problem Notes None recorded. Procedures Surgical History Date Name Laterality Status Provider Name and Address Organization Details Recorded Time 1 prevention-sabine ual alcohol misuse screening completed Katty Nj [facility] 08/25/2020 16:53:49 7 Suture/staple Removal completed Kathi Garrido PA-C [address] [place], [address], [facility] [place] 11/13/2016 14:42:47 Imaging Results None recorded. Procedure Notes None recorded. Medical Equipment None Reported. Allergies Allergen ID Allergen Name Allergen Category Reaction Reaction Severity Criticality Documentation Date Start Date Code Code System Note Provider Name and Address Organization Details Recorded Time fentanyl medicatio n Not available Not available Not available 07/18/2017 4337 RxNorm had to be remin ded to start breat yanelis when he was on it Daniela perrin, MASSIEL naidu[facility] 8 13:46:37 Medications Name Sig Start [...] Updated DateTime 2 182.25 cm 22.3 kg/m2 62918.9 6 g 80 /min 122 mm[Hg] 80 mm[Hg] Cande Penaloza [facility] 2 10:29:35 Date Recorded Body height Body mass index (BMI) Body weight Heart rate Systolic blood pressure Diastolic blood pressure Provider Name and Address Organization Details Last Updated DateTime 2 182.25 cm 22.3 kg/m2 85610.9 6 g 58 /min 126 mm[Hg] 74 mm[Hg] Katty Nj [facility] 2 10:48:20 Date Recorded Body height Body mass index (BMI) Body weight Systolic blood pressure Diastolic blood pressure Provider Name and Address Organization Details Last Updated DateTime 06/11/2021 182.25 cm 22.3 kg/m2 44315.56 g 124 mm[Hg] 78 mm[Hg] Abena Morales [facility] 2 15:25:40 Date Recorded Body height Body mass index (BMI) Body weight Heart rate Systolic blood pressure Diastolic blood pressure Systolic blood pressure Diastolic blood pressure Provider Name and Address Organization Details Last Updated DateTime 2 182.25 cm 21.9 kg/m2 00617.8 8 g 70 /min 125 mm[Hg] 80 mm[Hg] 122 mm[Hg] 76 mm[Hg] Katty Nj [facility] 2 15:52:10 Date Recorded Body height Body mass index (BMI) Body weight Heart rate Systolic blood pressure Diastolic blood pressure Provider Name and Address Organization Details Last Updated DateTime 1 182.25 cm 22 kg/m2 72037.3 7 g 68 /min 104 mm[Hg] 60 mm[Hg] Haily Antonio [facility] 1 08:09:58 Social History Question Answer Notes LastModified by Organizat ion Details LastModified Time Tobacco Smoking Status [email or web address]/14/2016 13:39:22 Do You Wear A Helmet When Biking? Yes Information not available 03/14/2016 What Is Your Level Of Caffeine Consumption? Occasional Energy Drink Occ/Coffee Rare [email or web address] Information not available 09/01/2021 How Much Tobacco Do You Chew? None Information not available 03/14/2016 What Type Of Diet Are You Following? REGULAR Could Eat More Veggies Information not available 03/14/2016 Which Illicit Or Recreational Drugs Have You Used? Smoke Eldridge Once In A While Information not available 03/14/2016 Education 2 Year College Information not available 03/14/2016 What Is The Highest Grade Or Level Of School You Have Completed Or The Highest Degree You Have Received? [id number] [email or web address] Information not available 09/01/2021 How Many Days In The Past Year Have You Had A Heavy Drinking Consumption (4+ Female, 5+ Male)? 0 [email or web address] Information not available 07/31/2018 Are There Any Guns Present In Your Home? No Information not available 03/14/2016 Do You Use Insect Repellent Routinely? No [email or web address] Information not available 09/01/2021 Live Alone Or With Others? With Others Radha Freed Information not available 03/14/2016 Patient Has Health [...] Your Relationship Status? Single GF For 8yrs. [email or web address] Information not available 09/01/2021 Do You Use Your Seat Belt Or Car Seat Routinely? Yes [email or web address] Information not available 09/01/2021 Seat Belts Used Routinely Yes Information not available 03/14/2016 Smoke Alarm In Home Yes Information not available 03/14/2016 Do You Have Smoke And Carbon Monoxide Detectors In Your Home? Yes [email or web address] Information not available 09/01/2021 Are You Passively Exposed To Smoke? Yes Work Equipment [email or web address] Information not available 09/01/2021 What Types Of Sporting Activities Do You Participate In? Baseball/ Soccer Information not available 03/14/2016 General Stress Level Medium Information not available 03/14/2016 Do You Use Sunscreen Routinely? Yes Information not available 03/14/2016 Sex: Male Functional Status Question Answer Note LastModified by Organizat ion Details LastModified Time Do you use any illicit or recreational drugs? Yes [email or web address] Information not available 09/01/2021 Do you or have you ever used any other forms of tobacco or nicotine? No [email or web address] Information not available 05/13/2021 What is your level of alcohol consumption? Occasional a few drinks once a month or so or less Information not available 09/01/2021 Do you or have you ever used smokeless tobacco? Never used smokeless tobacco [email or web address] Information not available 08/26/2020 Are you currently employed? 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 Never used electronic cigarettes [email or web address] Information not available 08/26/2020 What is your exercise level? Moderate [email or web address] Information not available 09/01/2021 Mental Status None [...] Recorded Time Tdap 11/05/2016 completed Not Available [facility] 02/18/2022 22:04:12 COVID-19, mRNA, LNP-S, PF, 100 mcg/0.5mL dose or 50 mcg/0.25mL dose 09/03/2020 completed Not Available [facility] 22:04:12 COVID-19, mRNA, LNP-S, PF, 100 mcg/0.5mL dose or 50 mcg/0.25mL dose 10/01/2020 completed Not Available [facility] 22:04:12 Past Encounters Encounter ID Performer Location Encounter Start Date Encounter Closed Date Diagnosis/Indication Diagnosis SNOMED-CT Code Diagnosis ICD10 Code Diagnosis Note [id number] Katelyn Leavitt NP , [facility], OFFICE [address] [place] [address] 03/14/2016 13:10:24 03/14/2016 14:11:16 Knee pain 30424763 M25.561 pt will work on ice, and ibuprofen. will look into PT and college and will call if he would like a referral Pain of elbow region 914 99219 M25.521 seems to have resolved with rest. will monitor and follow up as needed [id number] Veronica JOYCE, [facility], OFFICE [address] [place] [address] 6 11/13/2016 13:26:03 11/13/2016 13:58:01 Laceration of hand 445124735 S61.411D - sutures removed- healing well- keep covered while at work- return to office with any concerns- tetanus received in ER [id number] MD ISIAH Iniguez, [facility], OFFICE [address] [place] [address] 03/22/2017 15:49:28 03/23/2017 12:50:02 Acute folliculitis 636122594 L73.9 [id number] MAHENDRA Horn, [facility], OFFICE [address] [place] [address] 6 05/15/2017 08:10:31 05/15/2017 08:40:35 Perianal abscess 91072350 K61.0 recurrent [id number] Katelyn Leavitt NP , [facility], OFFICE [address] [place] [address] 07/18/2017 13:40:15 07/18/2017 14:15:25 Adult health examination 124755905 Z00.00 see Risk Assessment and Lifestyle Change Counseling section above Depression screening 171 746853 Z13.89 depression screening tool administer ed, entered into emr, scored and discussed, time greater than 7.5 minutes. negative Pain of ri ght shoulder joint 7544871333 1961139 M25.511 no acute injury. baseball at school and plans on playing for an [employer] league. will get xray and refer to sports med [id number] Sina Alegre MD Sports Medicine, [address] [address] 07/30/2017 10:31:36 08/01/2017 15:25:54 Pain of shoulder region 14239709 M25.511 Calvin is a 26-year-ol d male [...] case and he is unable to follow-up. [id number] Sina Alegre MD Sports Medicine, [address] [address] 08/27/2017 09:38:05 08/27/2017 16:00:49 Pain of shoulder region 59660184 M25.511 Calvin is a 26-year-ol d male with right shoulder pain that unfortunatamy bucio has been persistent despite physical therapy. He [...] phone if he is outside the area. [id number] Sina Alegre MD Sports Medicine, [address] [address] 08/30/2017 13:02:02 08/31/2017 12:48:06 Pain of shoulder region 08964203 M25.511 Calvin is a 26-year-ol d male [...] he will plan a follow-up with the animal trainer or physician in [place] with the team he is working with. I am happy to see him back as needed for further care. [id number] Katelyn Leavitt NP FP, [facility], OFFICE [address] [place] [address] 07/31/2018 13:25:39 07/31/2018 14:00:10 Adult health examination 416189053 Z00.00 see Risk Assessment and Lifestyle Change Counseling section above Depression screening 171 417207 Z13.89 depression screening tool administer ed, entered into emr, scored and discussed, time greater than 7.5 minutes. negative Thoracic back pain 98496 8004 M54.6 x1 week. no injury. will try back exercises. hand out given. naproxen twice a day. follow up in 2 weeks Recent weight loss 75786 7000 R63.4 pt reports not eating regularly since moving out of his parents house. he will work on regular meals and will recheck weight when he follows up in a couple weeks for back pain [id number] Katelyn Leavitt NP FP, [facility], OFFICE [address] [place] [address] 08/14/2018 14:07:05 08/15/2018 07:59:06 Backache 407571751 M54.9 improved with naproxen. did not try exercises. no radiation. no abd pain. no dysuria. will work on back and core strength, handouts given. if not improving in a few weeks would refer to PT [id number] Veronica Dior , [facility], OFFICE [address] [place] [address] 06/27/2019 13:32:15 06/27/2019 14:08:38 Pain in penis 493770387 N48.89 - normal exam today-If not improving over the weekend, call the office to follow up/conside r further testing-Ca n try icing the area for pain relief [id number] John Menchaca MD , [facility], OFFICE [address] [place] [address] 10/17/2019 09:08:32 10/20/2019 10:57:49 Pain in penis 560572336 N48.89 Will do workup of urine. If normal, referral to . Reports burning which makes me what to rule out other potential infectious causes. Dysuria 56131959 R30.9 Will do workup of urine. If normal, referral to . Reports burning which makes me what to rule out other potential infectious causes. [id number] Lei Ghotra MD , [facility], OFFICE [address] [place] [address] 06/23/2020 14:59:52 06/25/2020 13:56:36 Dysuria 94402017 R30.9 see urology. do ua Cx now. does not seem like STD or Herpes . prostate is large for age, but otherwise feels normal Pain in penis 646022211 N48.89 See urolol. Venereal d isease screening 435911465 Z11.3 [id number] Finn Haney MD , [facility], OFFICE [address] [place] [address] 08/26/2020 15:41:25 08/26/2020 16:18:55 Adult health examination 467276704 Z00.00 see Risk Assessment and Lifestyle Change Counseling section above - HCP: 07/18/17 Depression screening 171 560641 Z13.31 depression screening tool administer ed, entered into emr, scored and discussed, time greater than 7.5 minutes. negative Screening for alcohol abuse 828286866 Z13.39 negative Pain of ri ght shoulder joint 3043042698 7538877 M25.511 chronic. no improvemen t with PT. referred back to Dr. 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 Soto/jabari jarquin. Rx pentoxifyl line. some improvemen t. has follow up scheduled in 4 months or so [id number] Sina Alegre MD Sports Medicine, [facility] [address] [place] [address] 11/17/2020 10:52:37 11/18/2020 14:03:31 Pain of shoulder region 22770915 M25.511 Calvin is a 30-year-ol d male with right shoulder pain that I believe is due to impingemen t syndrome and rotator cuff tendinosis . I was able to personally review his MRI from 2018 [facility] ed no labral tear or rotator cuff [...] if he continues to have discomfort . 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.6 - pt will schedule f/u with urology Pain in testicle 8379476 9 N50.819 - ER notes reviewed including labs/imagi ng- STD screening pending but is low risk- epididymit is etiology/p revention discussed with pt, all questions answered- continue abx and ibuprofen as prescribed - ER precaution s discussed, call as needed [id number] Lei Ghotra MD , [facility], OFFICE [address] [place] [address] 05/13/2021 10:15:49 05/16/2021 10:11:57 Pain in testicle 47063090 N50.819 - recurrent testicular symptoms to episode last month- UA negative, culture sent- pt interested in repeat tx for suspected epididymit is, explained benefits/r isks to this, pt would like to proceed at this time- encouraged f/u with his urologist, he will call if needing new referral Epididymitis 39877923 N4 5.1 [id number] Katelyn Leavitt NP , [facility], OFFICE [address] [place] [address] 05/31/2021 10:40:39 06/01/2021 15:31:48 Pain of left knee region 2036388698 41929 M25.562 r/t fall on ice 05/20. neg xray at [facility] ED 05/21. significan tly improved with rest and ibuprofen. okay to use ice or heat, whichever feels better, 20-30 minutes at a time as needed. Follow up if not continuing to resolve in a few weeks. could consider PT if pain persists Immunization advised 310 772708 Z71.9 needs covid booster. encourange d to schedule. please post vaccine records to your portal and we will put it in your chart [id number] Nikkie Braden MD , [facility], OFFICE [address] [place] [address] 06/11/2021 15:15:55 06/14/2021 10:26:57 Epididymitis 87761383 N45.1 POC UA normalRece nt gonorrhea and chlamydia testing negativeRe cent scrotal ultrasound normalNo evidence of hydrocele on examWill treat with Bactrim for 10 daysDiscus sed following up with urologySho uld have CT imaging to assess for any anatomical abnormally - will discuss with PCP on Sunday. [id number] Finn Haney MD , [facility], OFFICE [address] [place] [address] 09/01/2021 15:33:34 09/01/2021 16:10:13 Adult health examination 169247671 Z00.00 - HCP: On file- tetanus due 2026- covid vaccines x2, booster encouraged - Hep C screening: discussed, ordered Depression screening 171 346898 Z13.31 depression screening tool administer ed, entered into emr, scored and discussed, time greater than 7.5 minutes. negative Screening for alcohol abuse 618394610 Z13.39 negative Active or passive immunization 339882834 Z23 Covid: Pt thinks moderna x2 no booster yet. encouraged Screening for disorder 860733540 Z11.59 Epididymitis 04732799 N4 5.1 levofloaxc in, meloxicam and prednisone [...] Recorded Advance Directives Directive None Recorded Payers Insurance Date Sequence Insurance Name Policy Number Policy Harrington Covered Member ID Harrington Member ID Guarantor Name 05/01/2022 1 [employer] PLANS [facility] TYPE I (HMO) [id number] Calvin Pickering [id number] Calvin Pickering 10/15/2019 1 *SELF PAY* Petra Pickering 06/27/2019 1 [facility] CHO[employer] FUND HRA - OPEN ACCESS PLUS [id number] Calvin Pickering [id number] [facility] Notes Date Note Type Note Provider Name and Address Organization Details Recorded Time 04/12/2021 text/html 04/12/2128 yo michele carrizales presenting for ER f/u. seen at [facility] ER yesterday for testicular pain, gradual x [...] around Sep, has not made f/u yet LZUMARIA Stevenson [address] [place] [address], [phone], [facility] 04/12/2021 08:26:39 05/13/2021 text/html 05/13/2227 yo tc [...] male presenting for ER f/u. seen at [facility] ER yesterday for testicular pain, gradual x [...] has not made f/u yet LUZMARIA Stevenson [address] [place] [address], [phone], [facility] 05/13/2021 10:52:38 05/31/2021 text/html 05/31/21 30yo M [...] trace swelling at this point Katelyn Leavitt, CERTIFIED PERSONAL FINANCE COUNSELOR [address] [place], [phone], [facility] 05/31/2021 11:08:37 06/11/2021 text/html He has been [...] is going to throw up. 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 had trouble making enough for a healthy diet lives with his manager long term care GF Katelyn Leavitt NP [address] [place] [address], [place], [address], [facility] 09/01/2021 23:21:32
== END 2024-10-21 14:19 | disposition home or self-care (01) ==
LOC: HO.HMGCX 14:18
PROVIDERS: PCP Nurse Practitioner Family; Visit Provider Physician Assistant
DX: R22.1 Localized swelling, mass and lump, neck (principal)
CPT/HCPCS: 76536

== ENCOUNTER → 2024-10-21 14:23 | Outpatient (BNV) | payer OTHER, SELFPAY | PROVIDERS: PCP Nurse Practitioner Family; Visit Provider Radiology Diagnostic Radiology | DX: R59.0 Localized enlarged lymph nodes (principal) | CPT/HCPCS: 76536 ==

== ENCOUNTER 2024-12-04 14:59 | Outpatient (AMB) | payer OTHER, SELFPAY ==
--- NOTE | 2024-12-04 15:08 | A.OFFVIS_ITS ---
Vital Signs 12/04/24 15:14 Height 6 ft Weight 175 lb BMI 23.7 BP 136/75 Blood Pressure Location Rt brachial Position Sitting Pulse 71 Intake Visit Reasons: Mass/lump~ neck Intake Note: Patient referred by pcp Geno Brown PA-C for mass/ lump on Lt jawline. Present for 6m. Hx of mono at age 22. Patient c/o: denies pain, discomfort. Imaging: US Neck and head~ 10-21-2024 Statistical Methods Teacher Required: No Accompanied by: Self / Same As Patient Allergies No Known Allergies Allergy (Verified 12/04/24 15:10) Medication List - Last Reconciled 12/04/24 by Andry Yip MD naproxen 500 mg PO BID 14 days HPI HPI Mass/lump~ neck: Details: 34-year-old male referred for a lump on the left neck. He says that he has noticed this for about 6 months now. He does not think that this has changed nor has increased in size. He denies any pain or tenderness. He denies any skin changes. He denies fever, chills or any systemic symptoms. He denies any oral lesions or any dental caries. 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 Current occupational exposures/hazards: No Cognitive needs: No Hearing needs: No Vision needs: No Review of Systems Const Denies chills and Denies fever(s) Card Denies chest pain, Denies dyspnea and Denies dyspnea on exertion Resp Denies cough, Denies dyspnea and Denies dyspnea on exertion GI Denies hematochezia and Denies change in bowel habits Denies hematuria and Denies difficulty urinating Musc Denies back pain and Denies limited range of motion Neuro Denies focal weakness and Denies convulsions Psych Denies depression and Denies mood swings Physical Exam Vital Signs: Last Vital Signs Pulse 71 12/04/24 15:14 BP 136/75 12/04/24 15:14 BMI result Body Mass Index 23.7 Const General: comfortable and no acute distress Orientation/consciousness: patient oriented x3 Neck Other: Left neck with note of a very mobile, 1 cm subcutaneous mass, well-defined, nontender Neck: Yes no lymphadenopathy Resp Auscultation: clear to auscultation bilaterally Cardio Rhythm: regular rhythm GI Palpation (GI): Soft to palpation, nontender and no guarding Neuro General: patient oriented x3 Assessment & Plan Assessment & Plan (1) Lump on neck: Code(s): R22.1 - Localized swelling, mass and lump, neck Category: Medical Plan: He has this very mobile subcutaneous mass as described above. An ultrasound had been done last month suggesting this to be a lymph node This mass appears to be subcutaneous in location. He wants this removed. I told him we can do this excision under local anesthesia in the office. I explained the technique of this procedure. I reviewed the risks including but not limited to bleeding and infections, as well as the benefits and alternatives He says he wants to proceed. This will be done in the office on his next visit . Coding Level of Care Code New Pt Level 3 (62480) Diagnoses Lump on neck R22.1
[2024-12-04 15:14] VITALS: BP 136/75; PULSE 71; BMI 23.7
--- OUTSIDE RECORDS SUMMARY | 2024-12-04 15:37 | XMS_ITS | Encounter Summary ---
Author Organization [facility] Address [address] [place] [address] Phone Care Team Providers Care Comic Writer Name Role Phone Katelyn Glass NP Primary Care Provider [phone] [facility], [facility] Primary Care Provider Encounter Details Date Type Department Care Team (Late st Contact Info) Description 05/17/2017 Procedure Pass OR Admitting Dept - Virtual Department [address] [place] [phone] Social History Tobacco Use Types Packs/Day Years Used Date Smoking Tobacco: Never Smokeless Tobacco: Never Alcohol Use Standard Drinks/Week Comments Yes 0 (1 standard drink = 0.6 oz pur e alcohol) twice a month Sex and Gender Information Value Date Recorded Sex Assigned at Male 04/11/2021 1:13 PM EST Legal Sex Male 8:57 PM EDT Gender Identity Male 04/11/2021 1:13 PM EST Sexual Orientation Straight 05/21/2021 2: 44 AM EST documented as of this encounter Plan of Treatment Not on file documented as of this encounter Visit Diagnoses Not on filedocumented in this encounter Care Teams Comic Writer Relationship Specialty Start Date End Date Katelyn Glass NP [address] [place] [phone] PCP - General Family Medicine 05/15/17 12/14/22 [facility] [address] [place] [address] PCP - General 12/15/22 documented as of this encounter Additional Source Comments The information contained in this document represents components of the legal health record. It is not the complete legal health record.[facility]
== END 2024-12-04 15:42 | disposition home or self-care (01) ==
LOC: HO.HGS 15:00
PROVIDERS: PCP Nurse Practitioner Family; Visit Provider Surgery
DX: R22.1 Localized swelling, mass and lump, neck (principal)
CPT/HCPCS: 99203

== ENCOUNTER → 2024-12-04 14:59 | Outpatient (BNVA) | payer OTHER, SELFPAY | PROVIDERS: PCP Nurse Practitioner Family; Visit Provider Surgery | DX: R22.1 Localized swelling, mass and lump, neck (principal) | CPT/HCPCS: 99202 ==

== ENCOUNTER 2024-12-12 08:30 | Outpatient (AMB) | payer OTHER, SELFPAY ==
--- NOTE | 2024-12-12 08:31 | MHC.OFFVIS ---
Intake Visit Reasons: 4m follow up prostatitis/microgen Intake Note: Patient is present for 4mo follow up Urology Medication:NONE Blood Thinner:NONE Supervisor Slate Splitting Required: No Accompanied by: Self / Same As Patient Allergies No Known Allergies Allergy (Verified 12/12/24 08:32) HPI Comments Details: Calvin is a pleasant male. He is a patient of Dr. Haney. He is seen for the following urologic conditions - discomfort and pain with erection - chronic prostatitis 12/15 persistent recurrent prostatitis At this point has bladder symptoms when has heartburn It a common observed association Would plan for trial of famotidine 07/15 Prior pelvic floor examination - Has pain on left pelvic sidewall consistent with chronic pelvic pain syndrome Discussed recent Microgen - has new collection of speciation different to previously - recently prescribed Augmentin 05/27/24 - Streptococcus, Staphylococcus sensitive to Augmentin 12/14 - Klebsiella + Routella - sensitive to Levaquin Trial retreatment with 30 days 10/14 low load Staphylococcus +fungus. 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 Current occupational exposures/hazards: No Cognitive needs: No Hearing needs: No Vision needs: No Review of Systems Const Denies chills and Denies fever(s) Card Reports no additional complaints and Denies syncope Resp Denies cough GI Denies abdominal pain and Denies heartburn Reports as per HPI and Denies change in libido Neuro Denies syncope Psych Denies change in libido Endo Denies change in libido Physical Exam Const General: cooperative, healthy appearing, comfortable and no acute distress Orientation/consciousness: patient oriented x3 HEENT Face and sinus: Yes normal facial exam Mouth: moist mucous membranes Neck Neck: Yes normal visual inspection, Yes full ROM and Yes trachea midline Chest Chest palpation & inspection: normal inspection of the chest Resp Effort & Inspection: normal respiratory effort, able to speak in complete sentences and no respiratory distress GI Inspection: Yes normal to inspection Back/Spine/Pelvis Cervical Spine: normal cervical lordosis Thoracic/Lumbar Spine: thoracic and lumbar spine normal to inspection Skin General skin exam: no rashes or lesions noted Neuro General: patient oriented x3, gait normal, tone normal and moves all extremities Extrem General: Yes normal to inspection and Yes capillary refill normal Assessment & Plan Assessment & Plan (1) Chronic prostatitis: Code(s): N41.1 - Chronic prostatitis Category: Medical (2) Bladder instability: Code(s): N32.89 - Other specified disorders of bladder Category: Medical Plan Six-month follow-up Medications: New famotidine 20 mg PO BID 60 tabs 1RF 30 days N32.81 - Overactive bladder, N41.1 - Chronic prostatitis Patient Instructions: This note is constructed using voice recognition software. While every effort has been made to ensure accuracy optical design engineer errors may have been included. Imaging studies, laboratory and physical exam results were discussed and reviewed in detail. No major barriers to patient understanding were identified. An opportunity to ask questions regarding the treatment plan was provided. All questions were answered. The patient expressed understanding and agreement with the above treatment plan. The patient is aware they should contact our office by phone for worsening of their current condition or the appearance of new urologic symptoms. Compliance is encouraged with any medications and followup testing that is ordered. It is a privilege to participate in the urologic care of your patient. If you have any questions or concerns regarding treatment for the above conditions, or other urologic issues, please do not hesitate to contact me. The office telephone contact is [phone]. Sincerely, Dr Pradip Soto MD, [facility] - Urology Compassionate Specialist Care for the Genitourinary System Coding Level of Care Code Est Pt Level 4 (96989) Complex EM visit Add On G2211 Diagnoses Chronic prostatitis N41.1 Bladder instability N32.89
--- OUTSIDE RECORDS SUMMARY | 2024-12-12 08:44 | XMS_ITS | Encounter Summary ---
Author Organization [facility] Address [address] [place] [address] Phone Care Team Providers Care Security Representative Name Role Phone Katelyn Glass NP Primary Care Provider [phone] [facility], [facility] Primary Care Provider Encounter Details Date Type Department Care Team (Late st Contact Info) Description 05/17/2017 Procedure Pass OR Admitting Dept - Virtual Department [address] [place] [id number] Social History Tobacco Use Types Packs/Day Years [...] on filedocumented in this encounter Care Teams Security Representative Relationship Specialty Start Date End Date Katelyn Glass NP [address] [place] [phone] PCP - General Family Medicine 05/15/17 12/14/22 [facility] [address] [place] [address] PCP - General 12/15/22 documented as of this encounter Additional Source Comments The information contained in this document represents components of the legal health record. It is not the complete legal health record.[facility]
== END 2024-12-12 09:04 | disposition home or self-care (01) ==
LOC: HO.HUSH 08:31
PROVIDERS: PCP Nurse Practitioner Family; Visit Provider Urology
DX: N41.1 Chronic prostatitis (principal); N32.89 Other specified disorders of bladder
CPT/HCPCS: 99214

== ENCOUNTER → 2024-12-12 08:30 | Outpatient (BNVA) | payer OTHER, SELFPAY | PROVIDERS: PCP Nurse Practitioner Family; Visit Provider Urology | DX: N41.1 Chronic prostatitis (principal); N32.81 Overactive bladder | CPT/HCPCS: 99212 ==

== ENCOUNTER 2025-01-12 14:08 | Outpatient (AMB) | payer OTHER, SELFPAY ==
--- NOTE | 2025-01-12 14:39 | MHC.OFFVIS ---
Intake Visit Reasons: excision subcutaneous mass left neck Intake Note: Patient here for lipoma excision on left neck. Of note: p/o scheduled (w/JUDE 11D) 01-23-25 @ 9am Braiding Operator Required: No Accompanied by: Self / Same As Patient Allergies No Known Allergies Allergy (Verified 01/12/25 15:04) HPI HPI excision subcutaneous mass left neck: Details: He is here for excision of a subcutaneous mass in the left neck. 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 The subcutaneous mass on us on the left neck at the submandibular region. This area was prepped and draped. Lidocaine 1% was used for local anesthesia. I made incision in the skin overlying this mass with a blade 15. This carried down through the full-thickness of the skin and subcutaneous fat with Metzenbaum scissors until was able to visualize a mass. This mass in the deep subcutaneous area was sharply dissected with Metzenbaum scissors until this has completely and sent as a specimen This was a 1 cm well-defined mass that appeared to be a cyst I closed the incision with full-thickness nylon 3-0 simple interrupted sutures. Dressings were applied. The procedure was completed. He tolerated procedure well. There were no immediate complications. There was minimal blood loss. 25298-Mwlwqmat scalp/neck/hands/feet/genitalia 0.6cm-1cm Procedure code (CPT) selection complete Assessment & Plan Assessment & Plan (1) Lump on neck: Code(s): R22.1 - Localized swelling, mass and lump, neck Category: Medical Plan: Excision was done in the office. He tolerated the procedure well. He was given wound care instructions. I will see him in the office for removal of sutures in about 2 weeks. Coding Level of Care Code Procedure Only Diagnoses Lump on neck R22.1 CPT Codes Scalp/Neck/Hands/Feet/Genetalia - CPT: 26583-Wjeyxqhj scalp/neck/hands/feet/genitalia 0.6cm-1cm ([id number])
--- OUTSIDE RECORDS SUMMARY | 2025-01-12 16:43 | XMS_ITS | Encounter Summary ---
Author Organization [facility] Address [address] [place] [address] Phone Care Team Providers Care Wire Splicer Name Role Phone
== END 2025-01-12 15:04 | disposition home or self-care (01) ==
LOC: HO.HGS 14:09
PROVIDERS: PCP Nurse Practitioner Family; Visit Provider Surgery
DX: L72.0 Epidermal cyst (principal)
CPT/HCPCS: 11422

== ENCOUNTER 2025-01-12 14:08 | Outpatient (REF) | payer OTHER, SELFPAY | END 2025-01-12 14:09 | disposition home or self-care (01) | LOC: HO.LNP 14:08 | PROVIDERS: PCP Nurse Practitioner Family; Visit Provider Surgery | DX: R22.1 Localized swelling, mass and lump, neck (principal) | CPT/HCPCS: 11422; 88304 ==

== ENCOUNTER 2025-01-23 08:55 | Outpatient (AMB) | payer OTHER, SELFPAY ==
--- NOTE | 2025-01-23 08:56 | A.OFFVIS_ITS ---
Vital Signs 01/23/25 09:03 Height 6 ft Weight 177 lb BMI 24.0 BP 141/87 H Blood Pressure Location Rt brachial Position Sitting Pulse 66 Intake Visit Reasons: s/p lipoma excision Lt neck Intake Note: Patient here s/p cyst excision on Left neck. Patient c/o: scabby along sutures. Denies pain, tenderness, oozing. WLE (): 01-12-2025 Hydrochloric Acid Operator Required: No Accompanied by: Self / Same As Patient Allergies No Known Allergies Allergy (Verified 01/23/25 09:03) HPI Comments Details: 34 year old male presenting for wound check and suture removal. He had an cyst excised from his left neck at the submandibular region on 01/12/[address] Yip in the office. He took tylenol for the first couple of days for discomfort at the excision site. He currently denies pain but reports itching. He reports no drainage from the wound. He has no concerns. [facility] Medical History Hx of drainage of abscess Abscess of anal or rectal region Surgical History (Updated 01/23/25 @ 09:19 by Najma Serna PA-C) Hx of surgical procedure (01/12/25) Hx of surgical procedure No pertinent past surgical history Social History Housing: House Alcohol intake: current Patient Tobacco Use Status: Never used Tobacco e-Cigarette/Vaping Use: Never Used Substance Use Type: Marijuana service: No Current occupational status: employed Current occupation: [employer] Current occupational exposures/hazards: No Cognitive needs: No Hearing needs: No Vision needs: No Review of Systems Const Denies chills and Denies fever(s) Skin/Breast Reports as per HPI and Denies rash Physical Exam Const General: comfortable, no acute distress and alert Orientation/consciousness: patient oriented x3 Resp Effort & Inspection: normal respiratory effort Skin Other: left neck, submandibular region- 3 nylon sutures removed from excision site- wound edges do not approximate completely however epidermis is present between edges, no dermis or subq tissue visible, no drainage, pale erythema surrounding old suture sites Neuro General: patient oriented x3 and moves all extremities Results Reviewed Results Reviewed: Skin, left neck, excision: Epidermal inclusion cyst Assessment & Plan Assessment & Plan (1) H/O excision of epidermal inclusion cyst: Code(s): Z98.890 - Other specified postprocedural states; Z87.2 - Personal history of diseases of the skin and subcutaneous tissue Category: Surgical Plan 34 year old male who underwent excision of epidermal cyst of left neck, submandibular region in the office on 01/12/25. He tolerated the procedure well and has no concerns. The sutures were removed without problem today. As noted above the wound edges do not approximate but there is intact epidermis in between and overall the excision site is well healed without evidence of infection. He was instructed to avoid shaving for the next few days as the site remains a little irritated following the suture removal. He can follow up as needed. Coding Level of Care Code Tele Est Pt Level 2 (82399) Diagnoses H/O excision of epidermal inclusion cyst Z98.890; Z87.2
[2025-01-23 09:03] VITALS: BP 141/87; PULSE 66; BMI 24.0
--- OUTSIDE RECORDS SUMMARY | 2025-01-23 09:22 | XMS_ITS | Encounter Summary ---
Author Organization [facility] Address [address] [facility] [place] [phone] Phone Care Team Providers Care Seamer Elastic Band Name Role Phone Quan Katelyn Kingsley NP Primary Care Provider [phone] [facility] Primary Care Provider Encounter Details Date Type Department Care Team (Late st Contact Info) Description 05/17/2017 Procedure Pass OR Admitting Dept - Virtual Department [address] [place] [phone] Social History Tobacco Use Types Packs/Day Years [...] as of this encounter Plan of Treatment Upcoming Encounters Date Type Department Care Team (Late st Contact Info) Description 12/29/2024 Procedure Pass [address] [address] 01/28/2025 7:45 AM EDT Appointment [address] [address] Donovan George, FLARER [address] [facility], [address]nd [place] [address] [email or web address] documented as of this encounter Visit Diagnoses Not on filedocumented in this encounter Care Teams Seamer Elastic Band Relationship Specialty Start Date End Date Katelyn Glass NP [address] [place] [phone] PCP - General Family Medicine 05/15/17 [facility] [address] [place] [phone] PCP - General 12/15/22 documented as of this encounter Additional Source Comments The information contained in this document represents components of the legal health record. It is not the complete legal health record.[facility]
--- OUTSIDE RECORDS SUMMARY | 2025-01-23 09:22 | XMS_ITS | Clinical Summary ---
Author Organization [facility] Address [address] [facility] [address] [place] [address] Phone Care Team Providers Care Unit Assistant Name Role Phone [facility], [facility] Primary Care Provider Allergies Active Allergy Reactions Criticality Noted Date Comments Fentanyl Shortness Of Breath High 09/23/2024 fentanyl Medications acetaminophen (TYLENOL) 325 mg tablet Take 1-2 tablets (325-650 mg total) by mouth every 6 (six) hours as needed (mild - moderate pain). 8 Active meloxicam (MOBIC) 15 MG tablet Take 15 mg by mouth daily. Active famotidine (PEPCID) 20 MG tablet Take 1 tablet by mouth 2 (two) times a day. 5 Active hydrOXYzine (VISTARIL) 25 MG capsule Take 1 capsule (25 mg total) by mouth every 6 (six) hours as needed for anxiety. 10 capsule 3 12/30/19 25 Discontin ued(No longer taking) LORazepam (ATIVAN) 0.5 MG tablet Take 1 tablet (0.5 mg total) by mouth every 6 (six) hours as needed for anxiety. 15 tablet 3 12/30/19 25 Discontin ued(No longer taking) amoxicillin-cl avulanate (AUGMENTIN) 875-125 mg per tablet Take 1 tablet (875 mg of amoxicillin total) by mouth 2 (two) times a day for 7 days. 14 tablet 5 12/30/19 25 Discontin ued(No longer taking) Active Problems Problem Noted Date Diagnosed Date Perianal pain 05/17/2017 Assessment & Plan (06/15/2017 5:54 PM EST): Calvin is concerned this could be an early perianal process. We will start him on Augmentin twice a day. He knows to seek medical attention in [place] if need be. He will call with any questions or concerns. Assessment & Plan (05/17/2017 9:16 AM EST): I will take Calvin to the operating room for an exam under anesthesia. He likely needs incision and drainage of that area of induration. I've explained that it is possible we might not find anything specific based on the results of the CAT scan. He understands this. We discussed that he may need packing placed and discussed its removal, which she has experience in and feels comfortable with. We discussed risks of bleeding, infection, injury to adjacent structures including the anal sphincter, and need for further surgery. All questions were answered and the patient has some trouble with our plan. He will continue taking the Augmentin for now. Encounters Date Type Department Care Team Description 12/29/2024 9:00 AM EDT Office Visit [facility] General Surgical Care [address] [place] [address] [place] [address] Donovan George CNP Perirectal abscess (Primary Dx) 12/17/2024 Telephone [facility] General Surgical Care [address] [place] [address] Donovan George CNP Follow-up 12/16/2024 8:59 AM EDT - 12/16/2024 12:56 PM EDT Emergency [facility] [address] [place] [address] Discharge Disposition: Home or Self Care 12/16/2024 Procedure Pass [facility], Ct Scan - [facility] [address] [place] [address] from Last 3 Months Family History Medical History Relation Comments Stroke Maternal Grandfather Heart attack Maternal Uncle Relation Status Comments Maternal Grandfather Maternal Uncle Social History Tobacco Use Types Packs/Day Years Used Date Smoking Tobacco: Never Smokeless Tobacco: Never Tobacco Cessation:Counseling Given: Not Answered Alcohol Use Standard Drinks/Week Comments Not Currently 0 (1 standard drink = 0.6 oz pur e alcohol) twice a month Education Answer Date Recorded Are you interested in more education? Not on antonella e 08/18/2022 Are you concerned about learning? Not on file 08/18/2022 No 08/18/2022 No 08/18/2022 Digital Access Answer Date Recorded No 09/15/2022 No 09/15/2022 Reliable internet access at home? Not on file 09/15/2022 Device with a working camera? Not on file Intimate Partner Violence Answer Date R ecorded Are you denied basic needs s uch as food, clothing, or medical care? No 12/19/2022 In the past 12 months have y ou been in a relationship with a person who hurts, threatens, or tries to control you? No 12/19/2022 Are you denied basic needs s uch as food, clothing, or medical care? No 12/19/2022 In the past 12 months have y ou been in a relationship with a person who hurts, threatens, or tries to control you? No 12/19/2022 Sex and Gender Information Value Date Recorded Sex Assigned at Male 04/11/2021 1:13 PM EST Legal Sex Male 8:57 PM EDT Gender Identity Male 04/11/2021 1:13 PM EST Sexual Orientation Straight 05/21/2021 2: 44 AM EST Last Filed Vital Signs Vital Sign Reading Time Taken Comments Blood Pressure 124/62 12/29/2024 9:10 AM EDT Pulse 65 12/29/2024 9:10 AM EDT Temperature 36.6 C (97.8 F) 12/29/2024 9:10 AM EDT Respiratory Rate 16 12/16/2024 12:56 PM EDT Oxygen Saturation 97% 12/29/2024 9:10 AM EDT Inhaled Oxygen Concentration - - Weight 79.4 kg (175 lb) 01/22/2025 1:43 PM EDT Height 182.9 cm (6') 01/22/2025 1:43 PM EDT Body Mass Index 23.73 01/22/2025 1:43 PM EDT Plan of Treatment Upcoming Encounters Date Type Department Care Team (Late st Contact Info) Description 12/29/2024 Procedure Pass [address] [address] 01/28/2025 7:45 AM EDT Appointment [address] [address] Donovan George, MARGIN TRIMMER [facility] 2nd [place] [address] [email or web address] Health Maintenance Due Date Last Done Comments DEPRESSION SCREENING 2004 HEPATITIS C SCREENING 2010 HIV ONE-TIME SCREENING (18-6 5 YEARS) 2010 INFLUENZA VACCINE (#1) 2024 COVID-19 VACCINE (2024-2 6 season) 2024 10/01/2020, 09/03/2020 Adult Td,Tdap Booster 11/05/2026 11/05/2016 SMOKING STATUS SCREENING (On ce After 26 Yrs) Completed 12/29/2024 HEPATITIS A VACCINES Aged Out No long er eligible based on patient's age to complete this topic HIB VACCINES Aged Out No longer eligi ble based on patient's age to complete this topic MENINGOCOCCAL VACCINES (ACWY) Aged Out No longer eligible based on patient's age to complete this topic MENINGOCOCCAL VACCINES (B) Aged Out N o longer eligible based on patient's age to complete this topic PNEUMOCOCCAL VACCINES (0-49 years) Aged Out No longer eligible b ased on patient's age to complete this topic Medical Devices Not on file Procedures Procedure Name Priority Date/Time Associated Diagnosis Comments CT PELVIS WITH CONTRAST Routine 12/16/2024 10:21 AM EDT BASIC METABOLIC PANEL STAT 12/16/2024 9:39 AM EDT CBC AND DIFFERENTIAL STAT 12/16/2024 9:39 AM EDT from Last 3 Months Results * CT PELVIS WITH CONTRAST (12/16/2024 10:21 AM EDT) Anatomical Region Laterality Modality Pelvis Computed Tomogra phy 12/16/2024 10:4 7 AM EDT Impressions 12/16/2024 11:58 AM EDT Slightly hyperdense left perianal soft tissue thickening with minimal surrounding stranding, may be infectious/inflammatory or possibly hematoma in the setting of bleeding. No drainable fluid collection. This may be further evaluated with pelvic MRI. ATTESTATION: I, Roxane Padgett as teaching physician, have reviewed the images for this case and if necessary edited the report originally created by Ti Arteaga. Narrative 12/16/2024 11:[address] PELVIS (GI) WITH CONTRAST Referring clinician's provided indication for this examination in Epic: * Abscess, anal or rectal TECHNIQUE: Multidetector-row CT of the pelvis was performed after administration of intravenous contrast using tailored dose modulation techniques. Images were reconstructed in the axial, coronal, and sagittal planes. COMPARISON: CT PELVIS (BONY PELVIS) WITH CONTRAST FINDINGS: Bowel: Visualized bowel loops are nondilated without wall thickening. Colonic diverticulosis. Peritoneum/Retroperitoneum: No masses, pneumoperitoneum, or fluid visualized portions. Lymph Nodes: No lymphadenopathy. Pelvic Organs/Bladder: No bladder wall thickening. Prostate and seminal vesicles are within normal limits. Vessels: Abdominal aortic bifurcation and iliac arteries are normal in caliber without significant stenosis. Bones/Soft Tissues: There is soft tissue slightly hyperdense thickening with loss of fat plane in the left perianal soft tissues (4:123-132) involving the left external sphincter muscle with mild adjacent fat stranding inferiorly (4:136) (. No discrete fluid collection. No destructive osseous lesions. Sacralization of the right L5 vertebral body. Procedure Note Roxane Padgett MD - 12/16/2024 CT PELVIS (GI) WITH CONTRAST Referring clinician's provided indication for this examination in Epic: *Abscess, anal or rectal TECHNIQUE: Multidetector-row CT of the pelvis was performed afteradministration of intravenous contrast using tailored dose modulationtechniques. Images were reconstructed in the axial, coronal, and sagittalplanes. COMPARISON: CT PELVIS (BONY PELVIS) WITH CONTRAST FINDINGS: Bowel: Visualized bowel loops are nondilated without wall thickening.Colonic diverticulosis. Peritoneum/Retroperitoneum: No masses, pneumoperitoneum, or fluidvisualized portions. Lymph Nodes: No lymphadenopathy. Pelvic Organs/Bladder: No bladder wall thickening. Prostate and seminalvesicles are within normal limits. Vessels: Abdominal aortic bifurcation and iliac arteries are normal incaliber without significant stenosis. Bones/Soft Tissues: There is soft tissue slightly hyperdense thickeningwith loss of fat plane in the left perianal soft tissues (4:123-132)involving the left external sphincter muscle with mild adjacent fatstranding inferiorly (4:136) (. No discrete fluid collection. Nodestructive osseous lesions. Sacralization of the right L5 vertebralbody. IMPRESSION: Slightly hyperdense left perianal soft tissue thickening with minimalsurrounding stranding, may be infectious/inflammatory or possibly hematomain the setting of bleeding. No drainable fluid collection. This may befurther evaluated with pelvic MRI. ATTESTATION: I, Roxane Padgett as teaching physician, have reviewed theimages for this case and if necessary edited the report originally createdby Ti Arteaga. Michelle Reich PA-C IM CT XSPECIALTY ORD ERABLES Final Result * (ABNORMAL) CBC and differential (12/16/2024 9:39 AM EDT) WBC 4.83 4.00 - 11.00 K/uL [facility] RBC 4.66 4.50 - 5.90 M/uL [facility] HGB 14.7 13.5 - 17.5 g/dL [facility] HCT 42.9 41.0 - 53.0 % [facility] PLT 179 150 - 450 K/uL [facility] MCV 92.1 80.0 - 100.0 fL [facility] MCH 31.5(H) 27.0 - 31.0 pg [facility] MCHC 34.3 32.0 - 36.0 g/dL [facility] RDW 12.3 11.5 - 14.5 % [facility] MPV 9.4 8.4 - 12.0 fL [facility] NRBC 0.00 0.00 /100 WBCs [facility] ABSOLUTE NRBC 0.00 0.00 K/uL [facility] DIFF METHOD Auto [facility] NEUTS 47.0(L) 48.0 - 76.0 % [facility] LYMPHS 37.7 18.0 - 41.0 % [facility] MONOS 9.5 4.0 - 11.0 % [facility] EOS 5.0 0.0 - 5.0 % [facility] BASOS 0.6 0.0 - 1.5 % [facility] Granulocytes, immature (%) 0.2 0.0 - 0.9 % [facility] ABSOLUTE NEUTS 2.27 1.92 - 7.60 K/uL [facility] ABSOLUTE LYMPHS 1.82 0.72 - 4.10 K/uL [facility] ABSOLUTE MONOS 0.46 0.16 - 1.10 K/uL [facility] ABSOLUTE EOS 0.24 0.00 - 0.50 K/uL [facility] ABSOLUTE BASOS 0.03 0.00 - 0.15 K/uL [facility] Granulocytes, immature 0.01 0.00 - 0.09 K/uL [facility] Blood 12/16/2024 9:39 AM EDT 12/16/2024 10:05 AM EDT Michelle Reich PA-C LAB BLOOD ORDERABLES Final Result Performing Organization Address City/State/[facility] Co de Phone Number [address] [address] * Basic metabolic panel (12/16/2024 9:39 AM EDT) SODIUM 140 133 - 146 mmol/L [facility] CHLORIDE 105 96 - 108 mmol/L [facility] POTASSIUM 4.2 3.3 - 5.1 mmol/L [facility] CO2 24 21 - 35 mmol/L [facility] BUN 15 6 - 19 mg/dL [facility] CREATININE 1.10 0.5 - 1.5 mg/dL [facility] GLUCOSE 99 70 - 99 mg/dL [facility] CALCIUM 9.5 8.4 - 10.3 mg/dL [facility] EGFR 91 >59 mL/min/1.7 3m2 [facility] Comment:Estimated glomerular filtration rate calculated using the CKD-EPI refit equation. ANION GAP 15 10 - 20 mmol/L [facility] Blood 12/16/2024 9:39 AM EDT 12/16/2024 10:05 AM EDT Michelle Reich PA-C LAB BLOOD ORDERABLES Final Result [facility] [address] [place] [address] from Last 3 Months Insurance [facility]CO [facility] ACO [facility] ACO [facility] ACO Advance Directives For more information, please contact: [phone] (9AM - 5PM [facility], Sunday-Sunday) * Full Code (Presumed) (Latest Code Status on File) Date Activated Date Inactivated Comments 05/17/2017 8:39 AM 05/17/2017 5:06 PM Care Teams Unit Assistant Relationship Specialty Start Date End Date [facility] [address] [place] [address] PCP - General 12/15/22 Additional Source Comments The information contained in this document represents components of the legal health record. It is not the complete legal health record.[facility]
--- OUTSIDE RECORDS SUMMARY | 2025-01-23 09:22 | XMS_ITS | Encounter Summary ---
Author Organization [facility] Address [address] [facility] [address] [place] [address] Phone Care Team Providers Care Building Construction Estimator Name Role Phone Qaun Katelyn Kingsley NP Primary Care Provider [phone] [facility] Primary Care Provider Encounter Details Date Type Department Care Team (Late st Contact Info) Description 05/15/2017 Procedure Pass [facility], Ct Scan [address] [address] Social History Tobacco Use Types Packs/Day Years [...] st Contact Info) Description 12/29/2024 Procedure Pass [address] [address] 01/28/2025 7:45 AM EDT Appointment [address] [address] Donovan George, HEALTH CARE SPECIALIST 15 [facility], 2nd [place] [address] [email or web address] documented as of this encounter Visit Diagnoses Not on filedocumented in this encounter Care Teams Building Construction Estimator Relationship Specialty Start Date End Date Katelyn Glass NP [address] [place] [address] PCP - General Family Medicine 05/15/17 12/14[facility]22 [facility] [address] [place] [address] PCP - General 12/15/22 documented as of this encounter Additional Source Comments The information contained in this document represents components of the legal health record. It is not the complete legal health record.[facility]
--- OUTSIDE RECORDS SUMMARY | 2025-01-23 09:22 | XMS_ITS | Encounter Summary ---
Author Organization [facility] Address [address] [place] [address] [place] [address] Phone Care Team Providers Care Frog Shaker Name Role Phone Katelyn Glass NP Primary Care Provider [phone] [facility] Primary Care Provider Encounter Details Date Type Department Care Team (Late st Contact Info) Description 02/18/2022 Procedure Pass [place] Admitting Dept - Virtual Department [address] [place] [address] Social History Tobacco Use Types Packs/Day Years [...] AM EST documented as of this encounter Functional Status * Calculated C-SSRS Risk Score (Lifetime/Recent) Answer Date of Assessment Author No Risk Indicated 02/18/2022 9:10 AM EDT Cande Hernandez RN * [place] Suicide Severity Rating Scale (Screener/Recent Self-Report) Question Answer Date of Assessment Author 1. Wish to be (Past 1 Month) No 022 9:10 AM EDT Cande Crain RN 2. Non-Specific Active Suici jonatan Thoughts (Past 1 Month) No 02/18/2022 9:10 AM EDT Rafy Crain, RN 6. Suicidal Behavior (Lifetime) No 9:10 AM EDT Cande Crain, RN documented as of this encounter Plan of Treatment Upcoming Encounters Date Type Department Care Team (Late st Contact Info) Description 12/29/2024 Procedure Pass [facility], [address] [address] 01/28/2025 7:45 AM EDT Appointment [address] [address] Donovan George, ELECTRICAL TEST TECHNICIAN 15 [facility], 2nd [place] [address] [email or web address] documented as of this encounter Visit Diagnoses Not on filedocumented in this encounter Care Teams Frog Shaker Relationship Specialty Start Date End Date Katelyn Glass NP [address] [place] [address] PCP - General Family Medicine 05/15/17 12/14/22 [facility] [address] [place] [address] PCP - General 12/15/22 documented as of this encounter Additional Source Comments The information contained in this document represents components of the legal health record. It is not the complete legal health record.[facility]
--- OUTSIDE RECORDS SUMMARY | 2025-01-23 09:22 | XMS_ITS | Encounter Summary ---
Author Organization [facility] Address [address] [employer] [facility] [address] [place] [address] Phone Care Team Providers Care Pharmaceutical Sales Specialist Name Role Phone [facility], Facility Primary Care Provider Encounter Details Date Type Department Care Team (Late st Contact Info) Description 12/16/2024 Procedure Pass [facility], Ct Scan - [address] [address] Social History Tobacco Use Types Packs/Day Years Used Date Smoking Tobacco: Never Smokeless Tobacco: Never Alcohol Use Standard Drinks/Week Comments Not Currently [...] Date of Assessment Author No Risk Indicated 12/16/2024 8:19 AM EDT Kelly Byers RN * [place] Suicide Severity Rating Scale (Screener/Recent Self-Report) Question Answer Date of Assessment Author 1. Wish to be (Past 1 Month) No 025 8:19 AM EDT Kelly Byers RN 2. Non-Specific Active Suici jonatan Thoughts (Past 1 Month) No 12/16/2024 8:19 AM EDT Kelly Byers RN 6. Suicidal Behavior (Lifetime) No 8:19 AM EDT Kelly Byers RN documented as of this encounter Plan of Treatment Upcoming Encounters Date Type Department Care Team (Late st Contact Info) Description 12/29/2024 Procedure Pass [address] [address] 01/28/2025 7:45 AM EDT Appointment [address] [address] Donovan George, TANK FURNACE OPERATOR 15 [facility], [address] [place] [address] [email or web address] documented as of this encounter Visit Diagnoses Not on filedocumented in this encounter Care Teams Pharmaceutical Sales Specialist Relationship Specialty Start Date End Date [facility] [address] [place] [address] PCP - General 12/15/22 documented as of this encounter Additional Source Comments The information contained in this document represents components of the legal health record. It is not the complete legal health record.[facility]
--- OUTSIDE RECORDS SUMMARY | 2025-01-23 09:22 | XMS_ITS | Encounter Summary ---
Author Organization [facility] Address [facility] [employer] [facility] [address] [place] [address] Phone Care Team Providers Care Environmental Educator Name Role Phone Katelyn Glass NP Primary Care Provider [phone] [facility], [facility] Primary Care Provider Encounter Details Date Type Department Care Team (Late st Contact Info) Description 02/18/2022 Procedure Pass [facility], Ct Scan - [facility] [address] [place] [address] Social History Tobacco Use Types Packs/Day Years [...] 9:10 AM EDT Cande Hernandez RN * [place] Suicide Severity Rating Scale (Screener/Recent Self-Report) Question Answer Date of Assessment Author 1. Wish to be (Past 1 Month) No 022 9:10 AM EDT Cande Crain RN 2. Non-Specific Active Suici jonatan Thoughts (Past 1 Month) No 02/18/2022 9:10 AM EDT Rafy Crain, YAO 6. Suicidal Behavior (Lifetime) No 9:10 AM EDT Cande Crain, YAO documented as of this encounter Plan of Treatment Upcoming Encounters Date Type Department Care Team (Late st Contact Info) Description 12/29/2024 Procedure Pass [facility], [address] [address] 01/28/2025 7:45 AM EDT Appointment [address] [address] Donovan George, MEDICAL PRACTICE MANAGER 15 [facility], 2nd [place] [address] [email or web address] documented as of this encounter Visit Diagnoses Not on filedocumented in this encounter Care Teams Environmental Educator Relationship Specialty Start Date End Date Katelyn Glass NP [address] [place] [address] PCP - General Family Medicine 05/15/17 12/14/22 [facility] [address] [place] [address] PCP - General 12/15/22 documented as of this encounter Additional Source Comments The information contained in this document represents components of the legal health record. It is not the complete legal health record.[facility]
== END 2025-01-23 09:11 | disposition home or self-care (01) ==
LOC: HO.HGS 08:56
PROVIDERS: PCP Nurse Practitioner Family; Visit Provider Physician Assistant Surgical
DX: Z98.890 Other specified postprocedural states (principal); Z87.2 Personal history of diseases of the skin and subcutaneous tissue
CPT/HCPCS: 99212

== ENCOUNTER 2025-04-03 09:45 | Outpatient (REF) | payer OTHER, SELFPAY ==
[2025-04-03 11:01] LABS: Appearance Urine Clear; Glucose Urine UA Negative (Negative); PH 6.5 (5.0-9.0); Specific Gravity - Urine 1.020 (1.005-1.025)
== END 2025-04-03 09:46 | disposition home or self-care (01) ==
LOC: HO.LAB 09:45
PROVIDERS: PCP Nurse Practitioner Family; Visit Provider Urology
DX: N41.1 Chronic prostatitis (principal); N32.89 Other specified disorders of bladder
CPT/HCPCS: 81001; 87086